=== PATIENT | female | born 1945 | race Caucasian/White ===

== ENCOUNTER → 2020-12-23 04:00 | Outpatient (REF) | payer MEDICARE, MEDICAID, SELFPAY ==
[2020-12-23 08:35] LABS: Hemoglobin A1c 7.5 % (3.8-5.6)
== END ==
LOC: OLS.SANC 04:00
PROVIDERS: Visit Provider Internal Medicine
DX: E11.9 Type 2 diabetes mellitus without complications (principal)
CPT/HCPCS: 36415; 83036

== ENCOUNTER → 2021-02-26 07:00 | Outpatient (REF) | payer MEDICARE, MEDICAID, SELFPAY ==
[2021-02-26 09:25] LABS: Hemoglobin A1c 7.5 % (3.8-5.6)
== END ==
LOC: OLS.SANC 07:00
PROVIDERS: Visit Provider Internal Medicine
DX: E11.9 Type 2 diabetes mellitus without complications (principal)
CPT/HCPCS: 36415; 83036

== ENCOUNTER → 2021-03-07 05:00 | Outpatient (REF) | payer MEDICARE, MEDICAID, SELFPAY ==
[2021-03-07 08:50] LABS: Hematocrit 31.9 % (37-47); Hemoglobin 10.6 g/dL (12.0-15.0); Mean Corp Hgb Conc 33.2 g/dL (32-36); Mean Corpuscular Hgb 29.4 pg (27.0-32.0); Mean Corpuscular Volume 88.6 fL (81-99); Mean Platelet Vol. 11.1 fl (6.2-12.0); Platelet Count 131 K/mm3 (150-450); RBC Distribution Width CV 14.9 % (11.6-14.6); RBC Distribution Width SD 48.1 fl (35.1-43.9); White Blood Count 6.3 K/mm3 (4.4-11.0)
[2021-03-07 09:03] LABS: Anion Gap 6 (5-15); BUN 15 mg/dL (7-18); BUN/Creat Ratio 12.7 RATIO (10-20); Calcium,Total 8.9 mg/dL (8.5-10.1); Chloride 107 mmol/L (98-107); Creatinine, Serum 1.18 mg/dL (0.55-1.02); EST Glomerular Filtration Rate 48 mL/min (>60); Est Glom Filt Rate - Afr Amer 57 mL/min (>60); Glucose 141 mg/dL (74-106); Potassium 3.5 mmol/L (3.5-5.1); Sodium Level 138 mmol/L (136-145)
== END ==
LOC: OLS.SANC 05:00
PROVIDERS: Visit Provider Internal Medicine
DX: E11.9 Type 2 diabetes mellitus without complications (principal); I10 Essential (primary) hypertension
CPT/HCPCS: 36415; 80048; 85027

== ENCOUNTER → 2021-04-04 05:00 | Outpatient (REF) | payer MEDICARE, MEDICAID, SELFPAY ==
[2021-04-04 08:41] LABS: Hematocrit 29.7 % (37-47); Hemoglobin 9.9 g/dL (12.0-15.0); Mean Corp Hgb Conc 33.3 g/dL (32-36); Mean Corpuscular Hgb 29.3 pg (27.0-32.0); Mean Corpuscular Volume 87.9 fL (81-99); Mean Platelet Vol. 11.4 fl (6.2-12.0); Platelet Count 143 K/mm3 (150-450); RBC Distribution Width CV 15.7 % (11.6-14.6); Red Blood Count 3.38 M/mm3 (4.2-5.4); White Blood Count 6.4 K/mm3 (4.4-11.0)
[2021-04-04 08:54] LABS: Anion Gap 5 (5-15); BUN 15 mg/dL (7-18); BUN/Creat Ratio 12.9 RATIO (10-20); Calcium,Total 8.5 mg/dL (8.5-10.1); Chloride 111 mmol/L (98-107); Creatinine, Serum 1.16 mg/dL (0.55-1.02); EST Glomerular Filtration Rate 48 mL/min (>60); Est Glom Filt Rate - Afr Amer 59 mL/min (>60); Glucose 106 mg/dL (74-106); Potassium 3.6 mmol/L (3.5-5.1); Sodium Level 142 mmol/L (136-145)
== END ==
LOC: OLS.SANC 05:00
PROVIDERS: Referring Provider Internal Medicine; Visit Provider Internal Medicine
DX: E11.9 Type 2 diabetes mellitus without complications (principal); E03.9 Hypothyroidism, unspecified
CPT/HCPCS: 36415; 80048; 85027

== ENCOUNTER → 2021-04-15 05:00 | Outpatient (REF) | payer MEDICARE, MEDICAID, SELFPAY ==
[2021-04-15 09:20] LABS: Hematocrit 36.8 % (37-47); Hemoglobin 11.7 g/dL (12.0-15.0); Mean Corp Hgb Conc 31.8 g/dL (32-36); Mean Corpuscular Hgb 28.8 pg (27.0-32.0); Mean Corpuscular Volume 90.6 fL (81-99); Mean Platelet Vol. 10.8 fl (6.2-12.0); Platelet Count 124 K/mm3 (150-450); RBC Distribution Width CV 15.8 % (11.6-14.6); RBC Distribution Width SD 51.5 fl (35.1-43.9); Red Blood Count 4.06 M/mm3 (4.2-5.4); White Blood Count 8.2 K/mm3 (4.4-11.0)
[2021-04-15 09:44] LABS: Anion Gap 7 (5-15); BUN 16 mg/dL (7-18); BUN/Creat Ratio 12.2 RATIO (10-20); Calcium,Total 9.1 mg/dL (8.5-10.1); Chloride 105 mmol/L (98-107); Creatinine, Serum 1.31 mg/dL (0.55-1.02); EST Glomerular Filtration Rate 42 mL/min (>60); Est Glom Filt Rate - Afr Amer 51 mL/min (>60); Glucose 164 mg/dL (74-106); Iron 79 ug/dL (50-170); Iron Binding Capacity,Total 249 ug/dL (250-450); Potassium 3.5 mmol/L (3.5-5.1); Sodium Level 138 mmol/L (136-145)
[2021-04-15 09:51] LABS: Vitamin B12 1611 pg/mL (211-911)
== END ==
LOC: OLS.SANC 05:00
PROVIDERS: Referring Provider Internal Medicine; Visit Provider Internal Medicine
DX: E78.5 Hyperlipidemia, unspecified (principal); E03.9 Hypothyroidism, unspecified
CPT/HCPCS: 36415; 80048; 82607; 82746; 83540; 83550; 85027

== ENCOUNTER → 2021-05-16 04:00 | Outpatient (REF) | payer MEDICARE, MEDICAID, SELFPAY ==
[2021-05-16 07:29] LABS: Hemoglobin 10.9 g/dL (12.0-15.0); Mean Corp Hgb Conc 32.1 g/dL (32-36); Mean Corpuscular Hgb 29.1 pg (27.0-32.0); Mean Corpuscular Volume 90.7 fL (81-99); Mean Platelet Vol. 10.5 fl (6.2-12.0); Platelet Count 115 K/mm3 (150-450); RBC Distribution Width CV 15.8 % (11.6-14.6); RBC Distribution Width SD 51.7 fl (35.1-43.9); Red Blood Count 3.75 M/mm3 (4.2-5.4); White Blood Count 7.5 K/mm3 (4.4-11.0)
[2021-05-16 07:41] LABS: Anion Gap 7 (5-15); BUN 20 mg/dL (7-18); BUN/Creat Ratio 15.4 RATIO (10-20); Calcium,Total 8.4 mg/dL (8.5-10.1); Chloride 106 mmol/L (98-107); EST Glomerular Filtration Rate 42 mL/min (>60); Est Glom Filt Rate - Afr Amer 51 mL/min (>60); Glucose 124 mg/dL (74-106); Potassium 3.9 mmol/L (3.5-5.1); Sodium Level 139 mmol/L (136-145)
== END ==
LOC: OLS.SANC 04:00
PROVIDERS: Visit Provider Family Medicine
DX: I10 Essential (primary) hypertension (principal); E11.9 Type 2 diabetes mellitus without complications
CPT/HCPCS: 36415; 80048; 85027

== ENCOUNTER → 2021-06-06 | Outpatient (REF) | payer MEDICARE, MEDICAID, SELFPAY ==
[2021-06-07 07:45] LABS: Mucous, Urine 0 SEEN /hpf (<or=2+)
[2021-06-07 08:21] LABS: Color, Urine Yellow (Yellow); Glucose, Dipstick 1000 mg/dl (Normal); Ketone-Dipstick 5 mg/dl (Negative); Leukocyte Esterase-Dipstick 500 /ul (Negative); Nitrite-Dipstick Positive (Negative); Occult Blood-Urine 50 /ul (Negative); Protein-Dipstick 15 mg/dl (Negative); Urine Bilirubin Dipstick Negative (Negative); Urine Clarity Sl. Cloudy (Clear); Urine Urobilinogen Normal (Normal)
[2021-06-07 08:28] LABS: Bacteria 2+ /hpf (None Seen); Calcium Oxalate Crystals Ur 1+ /hpf (<or=2+); Red Blood Cells-Urine 10-25 SEEN /hpf (0-5); Squamous Epithelial Cells - UA 0-5 SEEN /hpf (5-10); White Blood Cells >100 SEEN /hpf (0-5)
== END | disposition home or self-care (01) ==
LOC: OLS.SANC 19:00
PROVIDERS: Visit Provider Internal Medicine
DX: R41.82 Altered mental status, unspecified (principal)
CPT/HCPCS: 81001; 87086; 87088; 87186

== ENCOUNTER → 2021-06-20 | Outpatient (REF) | payer MEDICARE, MEDICAID, SELFPAY ==
[2021-06-20 08:42] LABS: Hematocrit 36.6 % (37-47); Mean Corp Hgb Conc 32.8 g/dL (32-36); Mean Corpuscular Hgb 29.5 pg (27.0-32.0); Mean Corpuscular Volume 89.9 fL (81-99); Mean Platelet Vol. 10.8 fl (6.2-12.0); Platelet Count 120 K/mm3 (150-450); RBC Distribution Width CV 15.4 % (11.6-14.6); RBC Distribution Width SD 50.4 fl (35.1-43.9); Red Blood Count 4.07 M/mm3 (4.2-5.4); White Blood Count 7.6 K/mm3 (4.4-11.0)
[2021-06-20 09:02] LABS: Anion Gap 7 (5-15); BUN 15 mg/dL (7-18); BUN/Creat Ratio 12.4 RATIO (10-20); Calcium,Total 8.9 mg/dL (8.5-10.1); Chloride 110 mmol/L (98-107); Creatinine, Serum 1.21 mg/dL (0.55-1.02); EST Glomerular Filtration Rate 46 mL/min (>60); Est Glom Filt Rate - Afr Amer 56 mL/min (>60); Glucose 74 mg/dL (74-106); Potassium 3.5 mmol/L (3.5-5.1); Sodium Level 142 mmol/L (136-145)
== END | disposition home or self-care (01) ==
LOC: OLS.SANC 05:00
PROVIDERS: Visit Provider Internal Medicine
DX: E11.9 Type 2 diabetes mellitus without complications (principal); N39.0 Urinary tract infection, site not specified
CPT/HCPCS: 36415; 80048; 85027

== ENCOUNTER → 2021-07-04 | Outpatient (REF) | payer MEDICAID, MEDICARE, SELFPAY ==
[2021-07-04 07:42] LABS: Hematocrit 35.9 % (37-47); Hemoglobin 11.7 g/dL (12.0-15.0); Mean Corp Hgb Conc 32.6 g/dL (32-36); Mean Corpuscular Hgb 28.9 pg (27.0-32.0); Mean Corpuscular Volume 88.6 fL (81-99); Mean Platelet Vol. 11.7 fl (6.2-12.0); Platelet Count 139 K/mm3 (150-450); RBC Distribution Width CV 15.7 % (11.6-14.6); Red Blood Count 4.05 M/mm3 (4.2-5.4); White Blood Count 7.4 K/mm3 (4.4-11.0)
[2021-07-04 07:50] LABS: Anion Gap 4 (5-15); BUN 15 mg/dL (7-18); BUN/Creat Ratio 13.5 RATIO (10-20); Chloride 110 mmol/L (98-107); Creatinine, Serum 1.11 mg/dL (0.55-1.02); EST Glomerular Filtration Rate 51 mL/min (>60); Est Glom Filt Rate - Afr Amer 62 mL/min (>60); Glucose 114 mg/dL (74-106); Sodium Level 140 mmol/L (136-145)
== END | disposition home or self-care (01) ==
LOC: OLS.SANC 06:10
PROVIDERS: Visit Provider Internal Medicine
DX: I10 Essential (primary) hypertension (principal); E11.9 Type 2 diabetes mellitus without complications; E78.5 Hyperlipidemia, unspecified
CPT/HCPCS: 36415; 80048; 85027

== ENCOUNTER → 2021-07-16 | Outpatient (REF) | payer MEDICARE, MEDICAID, SELFPAY ==
[2021-07-17 08:37] LABS: Color, Urine Yellow (Yellow); Glucose, Dipstick 100 mg/dl (Normal); Ketone-Dipstick Negative (Negative); Leukocyte Esterase-Dipstick 500 /ul (Negative); Nitrite-Dipstick Negative (Negative); Occult Blood-Urine 10 /ul (Negative); Protein-Dipstick 100 mg/dl (Negative); Urine Bilirubin Dipstick Negative (Negative); Urine Clarity Sl. Cloudy (Clear); Urine Urobilinogen Normal (Normal)
== END | disposition home or self-care (01) ==
LOC: OLS.SANC 21:00
PROVIDERS: Visit Provider Internal Medicine
DX: N39.0 Urinary tract infection, site not specified (principal); E11.9 Type 2 diabetes mellitus without complications
CPT/HCPCS: 81002; 87077; 87086; 87088; 87186

== ENCOUNTER → 2021-08-24 | Outpatient (REF) | payer MEDICARE, MEDICAID, SELFPAY ==
[2021-08-25 09:14] LABS: Mucous, Urine 0 SEEN /hpf (<or=2+); Red Blood Cells-Urine 0 SEEN /hpf (0-5)
[2021-08-25 10:25] LABS: Color, Urine Yellow (Yellow); Glucose, Dipstick 250 mg/dl (Normal); Ketone-Dipstick Negative (Negative); Leukocyte Esterase-Dipstick 500 /ul (Negative); Nitrite-Dipstick Negative (Negative); Occult Blood-Urine Negative /ul (Negative); Protein-Dipstick 100 mg/dl (Negative); Specific Gravity, Urine 1.015 (1.002-1.030); Urine Bilirubin Dipstick Negative (Negative); Urine Clarity Cloudy (Clear); Urine Urobilinogen Normal (Normal)
[2021-08-25 10:46] LABS: Bacteria 3+ /hpf (None Seen); Squamous Epithelial Cells - UA 0-5 SEEN /hpf (5-10); Triple Phosphate Crystals Ur 1+ /hpf (<or=1+); White Blood Cells 25-50 SEEN /hpf (0-5)
== END | disposition home or self-care (01) ==
LOC: OLS.SANC 09:13
PROVIDERS: Visit Provider Internal Medicine
DX: I10 Essential (primary) hypertension (principal); E11.9 Type 2 diabetes mellitus without complications; E78.5 Hyperlipidemia, unspecified
CPT/HCPCS: 81001; 87077; 87086; 87088; 87186

== ENCOUNTER → 2021-08-27 | Outpatient (REF) | payer MEDICARE, SELFPAY ==
[2021-08-27 08:08] LABS: Hemoglobin A1c 7.6 % (3.8-5.6)
== END | disposition home or self-care (01) ==
LOC: OLS.SANC 05:00
PROVIDERS: PCP Internal Medicine; Referring Provider Internal Medicine; Visit Provider Internal Medicine
DX: E11.9 Type 2 diabetes mellitus without complications (principal)
CPT/HCPCS: 36415; 83036

== ENCOUNTER → 2021-10-13 | Outpatient (REF) | payer MEDICARE, MEDICAID, SELFPAY ==
[2021-10-13 08:45] LABS: Hematocrit 30.3 % (37-47); Hemoglobin 9.8 g/dL (12.0-15.0); Mean Corp Hgb Conc 32.3 g/dL (32-36); Mean Corpuscular Hgb 28.5 pg (27.0-32.0); Mean Corpuscular Volume 88.1 fL (81-99); Mean Platelet Vol. 11.2 fl (6.2-12.0); Platelet Count 111 K/mm3 (150-450); RBC Distribution Width CV 14.9 % (11.6-14.6); RBC Distribution Width SD 47.2 fl (35.1-43.9); Red Blood Count 3.44 M/mm3 (4.2-5.4); White Blood Count 5.4 K/mm3 (4.4-11.0)
[2021-10-13 09:44] LABS: Anion Gap 8 (5-15); BUN 17 mg/dL (7-18); BUN/Creat Ratio 16.5 RATIO (10-20); Calcium,Total 8.7 mg/dL (8.5-10.1); Chloride 104 mmol/L (98-107); Creatinine, Serum 1.03 mg/dL (0.55-1.02); EST Glomerular Filtration Rate 55 mL/min (>60); Est Glom Filt Rate - Afr Amer 67 mL/min (>60); Glucose 229 mg/dL (74-106); Potassium 3.5 mmol/L (3.5-5.1); Sodium Level 137 mmol/L (136-145)
== END | disposition home or self-care (01) ==
LOC: OLS.SANC 05:00
PROVIDERS: PCP Internal Medicine; Visit Provider Internal Medicine
DX: I10 Essential (primary) hypertension (principal); E03.9 Hypothyroidism, unspecified
CPT/HCPCS: 36415; 80048; 85027

== ENCOUNTER → 2021-10-16 | Outpatient (REF) | payer MEDICARE, MEDICAID, SELFPAY ==
[2021-10-16 08:26] LABS: Hematocrit 30.9 % (37-47); Hemoglobin 10.3 g/dL (12.0-15.0); Mean Corp Hgb Conc 33.3 g/dL (32-36); Mean Corpuscular Hgb 29.5 pg (27.0-32.0); Mean Corpuscular Volume 88.5 fL (81-99); Mean Platelet Vol. 10.9 fl (6.2-12.0); Platelet Count 147 K/mm3 (150-450); RBC Distribution Width CV 15.1 % (11.6-14.6); RBC Distribution Width SD 48.4 fl (35.1-43.9); Red Blood Count 3.49 M/mm3 (4.2-5.4); White Blood Count 6.3 K/mm3 (4.4-11.0)
[2021-10-16 08:59] LABS: Anion Gap 8 (5-15); BUN 15 mg/dL (7-18); Calcium,Total 8.9 mg/dL (8.5-10.1); Chloride 104 mmol/L (98-107); EST Glomerular Filtration Rate 57 mL/min (>60); Est Glom Filt Rate - Afr Amer 70 mL/min (>60); Glucose 219 mg/dL (74-106); Potassium 3.8 mmol/L (3.5-5.1); Sodium Level 137 mmol/L (136-145)
== END | disposition home or self-care (01) ==
LOC: OLS.SANC 05:00
PROVIDERS: PCP Internal Medicine; Visit Provider Internal Medicine
DX: E11.9 Type 2 diabetes mellitus without complications (principal); T14.8XXD Other injury of unspecified body region, subsequent encounter
CPT/HCPCS: 36415; 80048; 85027

== ENCOUNTER → 2021-11-13 | Outpatient (REF) | payer MEDICARE, MEDICAID, SELFPAY ==
[2021-11-13 11:21] LABS: Hematocrit 33.9 % (37-47); Hemoglobin 10.9 g/dL (12.0-15.0); Mean Corp Hgb Conc 32.2 g/dL (32-36); Mean Corpuscular Hgb 28.6 pg (27.0-32.0); Mean Platelet Vol. 10.8 fl (6.2-12.0); Platelet Count 127 K/mm3 (150-450); RBC Distribution Width CV 15.4 % (11.6-14.6); RBC Distribution Width SD 50.1 fl (35.1-43.9); Red Blood Count 3.81 M/mm3 (4.2-5.4); White Blood Count 6.4 K/mm3 (4.4-11.0)
[2021-11-13 11:57] LABS: Anion Gap 5 (5-15); BUN 15 mg/dL (7-18); BUN/Creat Ratio 15.1 RATIO (10-20); Calcium,Total 8.8 mg/dL (8.5-10.1); Chloride 108 mmol/L (98-107); Creatinine, Serum 0.99 mg/dL (0.55-1.02); EST Glomerular Filtration Rate 58 mL/min (>60); Est Glom Filt Rate - Afr Amer 70 mL/min (>60); Glucose 136 mg/dL (74-106); Potassium 3.6 mmol/L (3.5-5.1); Sodium Level 139 mmol/L (136-145)
== END | disposition home or self-care (01) ==
LOC: OLS.SANC 05:00
PROVIDERS: PCP Internal Medicine; Visit Provider Internal Medicine
DX: I10 Essential (primary) hypertension (principal); E11.9 Type 2 diabetes mellitus without complications; E78.5 Hyperlipidemia, unspecified
CPT/HCPCS: 36415; 80048; 85027

== ENCOUNTER → 2022-01-06 | Outpatient (REF) | payer MEDICARE, MEDICAID, SELFPAY ==
[2022-01-06 09:17] LABS: Mucous, Urine 0 SEEN /hpf (<or=2+); Red Blood Cells-Urine 0 SEEN /hpf (0-5); Squamous Epithelial Cells - UA 0 SEEN /hpf (5-10)
[2022-01-06 10:12] LABS: Color, Urine Yellow (Yellow); Glucose, Dipstick Normal (Normal); Ketone-Dipstick 5 mg/dl (Negative); Leukocyte Esterase-Dipstick 500 /ul (Negative); Nitrite-Dipstick Positive (Negative); Occult Blood-Urine 150 /ul (Negative); Protein-Dipstick 30 mg/dl (Negative); Specific Gravity, Urine 1.025 (1.002-1.030); Urine Bilirubin Dipstick Negative (Negative); Urine Clarity Turbid (Clear); Urine Urobilinogen Normal (Normal)
[2022-01-06 10:20] LABS: Bacteria RARE /hpf (None Seen); White Blood Cells >100 SEEN /hpf (0-5); Yeast-Urine 4+ /hpf (None Seen)
== END ==
LOC: OLS.SANC 09:16
PROVIDERS: PCP Internal Medicine; Visit Provider Internal Medicine
DX: E11.9 Type 2 diabetes mellitus without complications (principal); I10 Essential (primary) hypertension; E78.5 Hyperlipidemia, unspecified; Z79.899 Other long term (current) drug therapy
CPT/HCPCS: 81001

== ENCOUNTER → 2022-01-14 | Outpatient (REF) | payer MEDICARE, MEDICAID, SELFPAY | LOC: OLS.SANC 05:00 | PROVIDERS: PCP Internal Medicine; Visit Provider Internal Medicine | DX: N39.0 Urinary tract infection, site not specified (principal) | CPT/HCPCS: 87077; 87086; 87088; 87186 ==

== ENCOUNTER → 2022-02-04 | Outpatient (REF) | payer OTHER, SELFPAY ==
[2022-02-04 09:21] LABS: Mucous, Urine 0 SEEN /hpf (<or=2+); Red Blood Cells-Urine 0 SEEN /hpf (0-5); Squamous Epithelial Cells - UA 0 SEEN /hpf (5-10)
[2022-02-04 09:31] LABS: Color, Urine Yellow (Yellow); Glucose, Dipstick 1000 mg/dl (Normal); Ketone-Dipstick 5 mg/dl (Negative); Leukocyte Esterase-Dipstick 500 /ul (Negative); Nitrite-Dipstick Negative (Negative); Occult Blood-Urine 150 /ul (Negative); Protein-Dipstick 100 mg/dl (Negative); Specific Gravity, Urine 1.025 (1.002-1.030); Urine Bilirubin Dipstick Negative (Negative); Urine Clarity Cloudy (Clear); Urine Urobilinogen Normal (Normal)
[2022-02-04 09:49] LABS: White Blood Cells >100 SEEN /hpf (0-5)
[2022-02-04 09:50] LABS: Bacteria 4+ /hpf (None Seen); Yeast-Urine 3+ /hpf (None Seen)
== END ==
LOC: OLS.SANC 04:00
PROVIDERS: PCP Internal Medicine; Visit Provider Internal Medicine
DX: N39.0 Urinary tract infection, site not specified (principal)
CPT/HCPCS: 81001; 87086; 87088

== ENCOUNTER → 2022-02-09 | Outpatient (REF) | payer MEDICARE, MEDICAID, SELFPAY ==
[2022-02-09 09:23] LABS: Color, Urine Red (Yellow); Glucose, Dipstick Normal (Normal); Ketone-Dipstick Negative (Negative); Leukocyte Esterase-Dipstick 500 /ul (Negative); Nitrite-Dipstick Positive (Negative); Occult Blood-Urine 50 /ul (Negative); Protein-Dipstick 30 mg/dl (Negative); Urine Clarity Turbid (Clear); Urine Urobilinogen 8 mg/dl (Normal)
[2022-02-09 09:26] LABS: Urine Bilirubin Dipstick 6 mg/dL (Negative)
== END ==
LOC: OLS.SANC 08:46
PROVIDERS: PCP Internal Medicine; Referring Provider Internal Medicine; Visit Provider Internal Medicine
DX: N39.0 Urinary tract infection, site not specified (principal); Z79.899 Other long term (current) drug therapy
CPT/HCPCS: 81002; 87086; 87088

== ENCOUNTER → 2022-02-12 | Outpatient (REF) | payer MEDICARE, MEDICAID, SELFPAY ==
[2022-02-12 10:09] LABS: Hematocrit 34.7 % (37-47); Hemoglobin 11.1 g/dL (12.0-15.0); Mean Corpuscular Hgb 28.4 pg (27.0-32.0); Mean Corpuscular Volume 88.7 fL (81-99); Mean Platelet Vol. 11.2 fl (6.2-12.0); Platelet Count 118 K/mm3 (150-450); RBC Distribution Width CV 15.5 % (11.6-14.6); RBC Distribution Width SD 49.6 fl (35.1-43.9); Red Blood Count 3.91 M/mm3 (4.2-5.4); White Blood Count 6.4 K/mm3 (4.4-11.0)
[2022-02-12 10:48] LABS: Anion Gap 7 (5-15); BUN 14 mg/dL (7-18); BUN/Creat Ratio 12.6 RATIO (10-20); Calcium,Total 8.7 mg/dL (8.5-10.1); Chloride 110 mmol/L (98-107); Creatinine, Serum 1.11 mg/dL (0.55-1.02); EST Glomerular Filtration Rate 51 mL/min (>60); Est Glom Filt Rate - Afr Amer 62 mL/min (>60); Glucose 119 mg/dL (74-106); Potassium 3.7 mmol/L (3.5-5.1); Sodium Level 141 mmol/L (136-145)
== END ==
LOC: OLS.SANC 05:00
PROVIDERS: PCP Internal Medicine; Visit Provider Internal Medicine
DX: E11.9 Type 2 diabetes mellitus without complications (principal); I10 Essential (primary) hypertension; E78.5 Hyperlipidemia, unspecified
CPT/HCPCS: 36415; 80048; 85027

== ENCOUNTER → 2022-02-25 | Outpatient (REF) | payer MEDICARE, MEDICAID, SELFPAY | LOC: OLS.SANC 05:00 | PROVIDERS: PCP Internal Medicine; Visit Provider Internal Medicine | DX: E11.9 Type 2 diabetes mellitus without complications (principal) | CPT/HCPCS: 36415; 83036 ==

== ENCOUNTER → 2022-02-28 | Outpatient (REF) | payer MEDICARE, MEDICAID, SELFPAY ==
[2022-03-02 08:22] LABS: Mucous, Urine 0 SEEN /hpf (<or=2+); Squamous Epithelial Cells - UA 0 SEEN /hpf (5-10)
[2022-03-02 09:14] LABS: Color, Urine Straw (Yellow); Glucose, Dipstick 1000 mg/dl (Normal); Ketone-Dipstick Negative (Negative); Leukocyte Esterase-Dipstick 500 /ul (Negative); Nitrite-Dipstick Negative (Negative); Occult Blood-Urine 50 /ul (Negative); Protein-Dipstick 15 mg/dl (Negative); Urine Bilirubin Dipstick Negative (Negative); Urine Clarity Cloudy (Clear); Urine Urobilinogen Normal (Normal)
[2022-03-02 09:35] LABS: Bacteria 3+ /hpf (None Seen); Red Blood Cells-Urine 0-5 SEEN /hpf (0-5); White Blood Cells 25-50 SEEN /hpf (0-5)
== END ==
LOC: OLS.SANC 08:20
PROVIDERS: PCP Internal Medicine; Visit Provider Internal Medicine
DX: R30.9 Painful micturition, unspecified (principal)
CPT/HCPCS: 81001; 87086; 87088

== ENCOUNTER → 2022-03-05 | Outpatient (REF) | payer MEDICARE, MEDICAID, SELFPAY ==
[2022-03-06 08:21] LABS: Mucous, Urine 0 SEEN /hpf (<or=2+); Squamous Epithelial Cells - UA 0 SEEN /hpf (5-10)
[2022-03-06 08:37] LABS: Color, Urine Yellow (Yellow); Glucose, Dipstick 250 mg/dl (Normal); Ketone-Dipstick 5 mg/dl (Negative); Leukocyte Esterase-Dipstick 500 /ul (Negative); Nitrite-Dipstick Negative (Negative); Occult Blood-Urine 150 /ul (Negative); Protein-Dipstick 30 mg/dl (Negative); Specific Gravity, Urine 1.025 (1.002-1.030); Urine Bilirubin Dipstick Negative (Negative); Urine Clarity Turbid (Clear); Urine Urobilinogen Normal (Normal)
[2022-03-06 08:45] LABS: Bacteria 2+ /hpf (None Seen); Red Blood Cells-Urine 10-25 SEEN /hpf (0-5); White Blood Cells 25-50 SEEN /hpf (0-5); Yeast-Urine 2+ /hpf (None Seen)
== END ==
LOC: OLS.SANC 20:30
PROVIDERS: PCP Internal Medicine; Visit Provider Internal Medicine
DX: I10 Essential (primary) hypertension (principal); E11.9 Type 2 diabetes mellitus without complications; E78.5 Hyperlipidemia, unspecified; R30.0 Dysuria
CPT/HCPCS: 81001; 87086; 87088

== ENCOUNTER → 2022-03-11 | Outpatient (REF) | payer MEDICARE, MEDICAID, SELFPAY ==
[2022-03-11 07:13] LABS: Mucous, Urine 0 SEEN /hpf (<or=2+); Squamous Epithelial Cells - UA 0 SEEN /hpf (5-10)
[2022-03-11 07:54] LABS: Color, Urine Yellow (Yellow); Glucose, Dipstick 1000 mg/dl (Normal); Ketone-Dipstick Negative (Negative); Leukocyte Esterase-Dipstick 500 /ul (Negative); Nitrite-Dipstick Negative (Negative); Occult Blood-Urine 150 /ul (Negative); Protein-Dipstick 30 mg/dl (Negative); Urine Bilirubin Dipstick Negative (Negative); Urine Clarity Cloudy (Clear); Urine Urobilinogen Normal (Normal)
[2022-03-11 08:18] LABS: Red Blood Cells-Urine 10-25 SEEN /hpf (0-5); White Blood Cells 25-50 SEEN /hpf (0-5)
[2022-03-11 08:19] LABS: Bacteria 1+ /hpf (None Seen); Yeast-Urine 2+ /hpf (None Seen)
== END ==
LOC: OLS.SANC 05:00
PROVIDERS: PCP Internal Medicine; Visit Provider Internal Medicine
DX: R30.9 Painful micturition, unspecified (principal)
CPT/HCPCS: 81001; 87086; 87088

== ENCOUNTER → 2022-05-01 | Outpatient (REF) | payer OTHER, SELFPAY ==
[2022-05-01 08:20] LABS: Thyroid Stim Hormone (TSH) 3.24 uIU/mL (0.358-3.74)
== END ==
LOC: OLS.SANC 05:00
PROVIDERS: PCP Internal Medicine; Visit Provider Internal Medicine
DX: E03.9 Hypothyroidism, unspecified (principal); Z79.899 Other long term (current) drug therapy
CPT/HCPCS: 36415; 84443

== ENCOUNTER → 2022-05-05 | Outpatient (REF) | payer MEDICARE, OTHER, MEDICAID, SELFPAY ==
[2022-05-05 10:15] LABS: Calcium,Total 8.2 mg/dL (8.5-10.1); Creatinine, Serum 0.91 mg/dL (0.55-1.02); EST Glomerular Filtration Rate 64 mL/min (>60); Est Glom Filt Rate - Afr Amer 77 mL/min (>60); Magnesium 1.8 mg/dL (1.6-2.6); Phosphorus 3.2 mg/dL (2.5-4.9)
== END ==
LOC: OLS.SANC 05:00
PROVIDERS: PCP Internal Medicine; Visit Provider Internal Medicine
DX: Z79.899 Other long term (current) drug therapy (principal)
CPT/HCPCS: 36415; 82310; 82565; 83735; 84100

== ENCOUNTER → 2022-06-08 | Outpatient (REF) | payer MEDICARE, OTHER, MEDICAID, SELFPAY ==
[2022-06-08 09:16] LABS: Color, Urine Yellow (Yellow); Glucose, Dipstick Normal (Normal); Ketone-Dipstick 5 mg/dl (Negative); Leukocyte Esterase-Dipstick 500 /ul (Negative); Mucous, Urine 0 SEEN /hpf (<or=2+); Nitrite-Dipstick Negative (Negative); Occult Blood-Urine 150 /ul (Negative); Protein-Dipstick 100 mg/dl (Negative); Specific Gravity, Urine 1.025 (1.002-1.030); Squamous Epithelial Cells - UA 0 SEEN /hpf (5-10); Urine Bilirubin Dipstick Negative (Negative); Urine Clarity Turbid (Clear); Urine Urobilinogen Normal (Normal)
[2022-06-08 09:30] LABS: Bacteria 2+ /hpf (None Seen); Red Blood Cells-Urine 10-25 SEEN /hpf (0-5); White Blood Cells 50-100 SEEN /hpf (0-5)
[2022-06-08 09:31] LABS: Yeast-Urine 1+ /hpf (None Seen)
== END ==
LOC: OLS.SANC 05:00
PROVIDERS: PCP Internal Medicine; Visit Provider Internal Medicine
DX: N39.0 Urinary tract infection, site not specified (principal)
CPT/HCPCS: 81001; 87077; 87086; 87088; 87186

== ENCOUNTER → 2022-06-12 | Outpatient (REF) | payer MEDICARE, OTHER, MEDICAID, SELFPAY ==
[2022-06-12 08:48] LABS: Mucous, Urine 0 SEEN /hpf (<or=2+); Squamous Epithelial Cells - UA 0 SEEN /hpf (5-10)
[2022-06-12 09:46] LABS: Color, Urine Yellow (Yellow); Glucose, Dipstick Normal (Normal); Ketone-Dipstick Negative (Negative); Leukocyte Esterase-Dipstick 500 /ul (Negative); Nitrite-Dipstick Positive (Negative); Occult Blood-Urine 150 /ul (Negative); Protein-Dipstick 100 mg/dl (Negative); Urine Bilirubin Dipstick Negative (Negative); Urine Clarity Cloudy (Clear); Urine Urobilinogen Normal (Normal)
[2022-06-12 10:00] LABS: Bacteria 2+ /hpf (None Seen); Red Blood Cells-Urine 10-25 SEEN /hpf (0-5); White Blood Cells 50-100 SEEN /hpf (0-5)
== END ==
LOC: OLS.SANC 05:00
PROVIDERS: PCP Internal Medicine; Visit Provider Internal Medicine
DX: N39.0 Urinary tract infection, site not specified (principal)
CPT/HCPCS: 81001; 87077; 87086; 87088; 87186

== ENCOUNTER → 2022-06-15 | Outpatient (REF) | payer MEDICARE, MEDICAID, SELFPAY ==
[2022-06-15 08:26] LABS: Hematocrit 37.8 % (37-47); Mean Corp Hgb Conc 31.7 g/dL (32-36); Mean Corpuscular Hgb 27.9 pg (27.0-32.0); Mean Corpuscular Volume 87.9 fL (81-99); Mean Platelet Vol. 11.4 fl (6.2-12.0); Platelet Count 153 K/mm3 (150-450); RBC Distribution Width CV 15.9 % (11.6-14.6); RBC Distribution Width SD 50.9 fl (35.1-43.9); White Blood Count 6.2 K/mm3 (4.4-11.0)
[2022-06-15 08:33] LABS: Anion Gap 6 (5-15); BUN 12 mg/dL (7-18); BUN/Creat Ratio 11.4 RATIO (10-20); Calcium,Total 8.9 mg/dL (8.5-10.1); Chloride 106 mmol/L (98-107); Creatinine, Serum 1.05 mg/dL (0.55-1.02); EST Glomerular Filtration Rate 54 mL/min (>60); Est Glom Filt Rate - Afr Amer 66 mL/min (>60); Glucose 110 mg/dL (74-106); Potassium 3.8 mmol/L (3.5-5.1); Sodium Level 140 mmol/L (136-145)
== END ==
LOC: OLS.SANC 05:00
PROVIDERS: PCP Internal Medicine; Visit Provider Internal Medicine
DX: E11.9 Type 2 diabetes mellitus without complications (principal); I10 Essential (primary) hypertension; E78.5 Hyperlipidemia, unspecified
CPT/HCPCS: 36415; 80048; 85027

== ENCOUNTER → 2022-06-29 | Outpatient (REF) | payer MEDICARE, OTHER, MEDICAID, SELFPAY ==
[2022-06-29 09:17] LABS: Hemoglobin A1c 8.1 % (3.8-5.6)
== END ==
LOC: OLS.SANC 05:00
PROVIDERS: PCP Internal Medicine; Visit Provider Internal Medicine
DX: E11.9 Type 2 diabetes mellitus without complications (principal); I10 Essential (primary) hypertension; E78.5 Hyperlipidemia, unspecified
CPT/HCPCS: 36415; 83036

== ENCOUNTER → 2022-07-03 | Outpatient (REF) | payer MEDICARE, MEDICAID, SELFPAY ==
[2022-07-03 07:27] LABS: Mucous, Urine 0 SEEN /hpf (<or=2+); Squamous Epithelial Cells - UA 0 SEEN /hpf (5-10)
[2022-07-03 07:54] LABS: Color, Urine Yellow (Yellow); Glucose, Dipstick 250 mg/dl (Normal); Ketone-Dipstick 5 mg/dl (Negative); Leukocyte Esterase-Dipstick 500 /ul (Negative); Nitrite-Dipstick Negative (Negative); Occult Blood-Urine 150 /ul (Negative); Protein-Dipstick 100 mg/dl (Negative); Specific Gravity, Urine 1.025 (1.002-1.030); Urine Bilirubin Dipstick Negative (Negative); Urine Clarity Turbid (Clear); Urine Urobilinogen Normal (Normal)
[2022-07-03 08:14] LABS: Bacteria 1+ /hpf (None Seen); Red Blood Cells-Urine 10-25 SEEN /hpf (0-5); White Blood Cells 25-50 SEEN /hpf (0-5); Yeast-Urine 1+ /hpf (None Seen)
== END ==
LOC: OLS.SANC 05:00
PROVIDERS: PCP Internal Medicine; Visit Provider Internal Medicine
DX: N39.0 Urinary tract infection, site not specified (principal)
CPT/HCPCS: 81001; 87086; 87088

== ENCOUNTER → 2022-07-06 | Outpatient (REF) | payer MEDICARE, OTHER, MEDICAID, SELFPAY ==
[2022-07-06 09:14] LABS: ALB/GLOB Ratio 0.8 RATIO (0.9-2.4); AST(SGOT) 12 U/L (15-37); Alanine Aminotransfer ALT/SGPT 17 U/L (13-56); Albumin, Serum 2.4 g/dL (3.2-5.0); Alkaline Phosphatase 113 U/L (45-117); Anion Gap 5 (5-15); BUN 16 mg/dL (7-18); BUN/Creat Ratio 17.6 RATIO (10-20); Calcium,Total 8.3 mg/dL (8.5-10.1); Chloride 109 mmol/L (98-107); Creatinine, Serum 0.91 mg/dL (0.55-1.02); EST Glomerular Filtration Rate 64 mL/min (>60); Est Glom Filt Rate - Afr Amer 77 mL/min (>60); Globulin 3.2 g/dL (2.2-4.2); Glucose 84 mg/dL (74-106); Potassium 3.4 mmol/L (3.5-5.1); Protein, Total 5.6 g/dL (6.4-8.2); Sodium Level 141 mmol/L (136-145)
[2022-07-07 09:55] LABS: Hematocrit 33.7 % (37-47); Hemoglobin 10.7 g/dL (12.0-15.0); Mean Corp Hgb Conc 31.8 g/dL (32-36); Mean Corpuscular Hgb 28.3 pg (27.0-32.0); Mean Corpuscular Volume 89.2 fL (81-99); Mean Platelet Vol. 10.3 fl (6.2-12.0); Platelet Count 131 K/mm3 (150-450); RBC Distribution Width CV 15.9 % (11.6-14.6); RBC Distribution Width SD 51.5 fl (35.1-43.9); Red Blood Count 3.78 M/mm3 (4.2-5.4); White Blood Count 6.9 K/mm3 (4.4-11.0)
== END ==
LOC: OLS.SANC 05:00
PROVIDERS: PCP Internal Medicine; Visit Provider Internal Medicine
DX: E11.9 Type 2 diabetes mellitus without complications (principal); I10 Essential (primary) hypertension
CPT/HCPCS: 36415; 80053; 85027

== ENCOUNTER → 2022-07-10 | Outpatient (REF) | payer MEDICARE, OTHER, MEDICAID, SELFPAY ==
[2022-07-10 08:54] LABS: Mucous, Urine 0 SEEN /hpf (<or=2+)
[2022-07-10 09:11] LABS: Color, Urine Yellow (Yellow); Glucose, Dipstick 250 mg/dl (Normal); Ketone-Dipstick 5 mg/dl (Negative); Leukocyte Esterase-Dipstick 500 /ul (Negative); Nitrite-Dipstick Negative (Negative); Occult Blood-Urine 150 /ul (Negative); Protein-Dipstick 100 mg/dl (Negative); Specific Gravity, Urine 1.025 (1.002-1.030); Urine Bilirubin Dipstick Negative (Negative); Urine Clarity Turbid (Clear); Urine Urobilinogen Normal (Normal)
[2022-07-10 09:24] LABS: Bacteria 1+ /hpf (None Seen); Red Blood Cells-Urine 10-25 SEEN /hpf (0-5); Squamous Epithelial Cells - UA 0-5 SEEN /hpf (5-10); White Blood Cells 25-50 SEEN /hpf (0-5)
== END ==
LOC: OLS.SANC 05:00
PROVIDERS: PCP Internal Medicine; Visit Provider Internal Medicine
DX: R39.9 Unspecified symptoms and signs involving the genitourinary system (principal); E11.9 Type 2 diabetes mellitus without complications; I10 Essential (primary) hypertension
CPT/HCPCS: 81001; 87086; 87088

== ENCOUNTER → 2022-07-13 | Outpatient (REF) | payer MEDICARE, MEDICAID, SELFPAY ==
[2022-07-13 08:48] LABS: Hemoglobin 11.6 g/dL (12.0-15.0); Mean Corp Hgb Conc 32.2 g/dL (32-36); Mean Corpuscular Hgb 28.6 pg (27.0-32.0); Mean Corpuscular Volume 88.9 fL (81-99); Mean Platelet Vol. 10.8 fl (6.2-12.0); Platelet Count 149 K/mm3 (150-450); RBC Distribution Width CV 15.9 % (11.6-14.6); RBC Distribution Width SD 51.4 fl (35.1-43.9); Red Blood Count 4.05 M/mm3 (4.2-5.4); White Blood Count 7.4 K/mm3 (4.4-11.0)
[2022-07-13 09:05] LABS: Anion Gap 7 (5-15); BUN 13 mg/dL (7-18); BUN/Creat Ratio 13.8 RATIO (10-20); Calcium,Total 9.1 mg/dL (8.5-10.1); Chloride 107 mmol/L (98-107); Creatinine, Serum 0.94 mg/dL (0.55-1.02); EST Glomerular Filtration Rate 61 mL/min (>60); Est Glom Filt Rate - Afr Amer 74 mL/min (>60); Glucose 114 mg/dL (74-106); Potassium 3.2 mmol/L (3.5-5.1); Sodium Level 141 mmol/L (136-145)
== END ==
LOC: OLS.SANC 04:00
PROVIDERS: PCP Internal Medicine; Referring Provider Internal Medicine; Visit Provider Internal Medicine
DX: E11.9 Type 2 diabetes mellitus without complications (principal); I10 Essential (primary) hypertension; E78.5 Hyperlipidemia, unspecified
CPT/HCPCS: 36415; 80048; 85027

== ENCOUNTER → 2022-07-15 | Outpatient (REF) | payer MEDICARE, OTHER, MEDICAID, SELFPAY ==
[2022-07-15 08:18] LABS: Mucous, Urine 0 SEEN /hpf (<or=2+)
[2022-07-15 09:01] LABS: Color, Urine Yellow (Yellow); Glucose, Dipstick 250 mg/dl (Normal); Ketone-Dipstick Negative (Negative); Leukocyte Esterase-Dipstick 500 /ul (Negative); Nitrite-Dipstick Positive (Negative); Occult Blood-Urine 50 /ul (Negative); Protein-Dipstick 30 mg/dl (Negative); Urine Bilirubin Dipstick Negative (Negative); Urine Clarity Cloudy (Clear); Urine Urobilinogen Normal (Normal)
[2022-07-15 09:16] LABS: White Blood Cells >100 SEEN /hpf (0-5)
[2022-07-15 09:20] LABS: Bacteria 3+ /hpf (None Seen); Red Blood Cells-Urine 0-5 SEEN /hpf (0-5); Squamous Epithelial Cells - UA 0-5 SEEN /hpf (5-10)
== END ==
LOC: OLS.SANC 06:22
PROVIDERS: PCP Internal Medicine; Visit Provider Internal Medicine
DX: R39.11 Hesitancy of micturition (principal); R35.0 Frequency of micturition; R39.16 Straining to void
CPT/HCPCS: 81001; 87077; 87086; 87088; 87186

== ENCOUNTER → 2022-07-16 | Outpatient (REF) | payer MEDICARE, OTHER, MEDICAID, SELFPAY ==
[2022-07-16 08:39] LABS: Anion Gap 8 (5-15); BUN 16 mg/dL (7-18); BUN/Creat Ratio 18.3 RATIO (10-20); Calcium,Total 8.6 mg/dL (8.5-10.1); Chloride 108 mmol/L (98-107); Creatinine, Serum 0.87 mg/dL (0.55-1.02); EST Glomerular Filtration Rate 67 mL/min (>60); Est Glom Filt Rate - Afr Amer 81 mL/min (>60); Glucose 181 mg/dL (74-106); Potassium 3.6 mmol/L (3.5-5.1); Sodium Level 140 mmol/L (136-145)
== END ==
LOC: OLS.SANC 05:00
PROVIDERS: PCP Internal Medicine; Visit Provider Internal Medicine
DX: E11.9 Type 2 diabetes mellitus without complications (principal); I10 Essential (primary) hypertension; E78.5 Hyperlipidemia, unspecified
CPT/HCPCS: 36415; 80048

== ENCOUNTER → 2022-08-11 | Outpatient (REF) | payer MEDICARE, OTHER, MEDICAID, SELFPAY ==
[2022-08-11 08:58] LABS: Color, Urine Yellow (Yellow); Glucose, Dipstick 1000 mg/dl (Normal); Ketone-Dipstick Negative (Negative); Leukocyte Esterase-Dipstick 500 /ul (Negative); Nitrite-Dipstick Negative (Negative); Occult Blood-Urine 150 /ul (Negative); Protein-Dipstick 100 mg/dl (Negative); Specific Gravity, Urine 1.025 (1.002-1.030); Urine Bilirubin Dipstick Negative (Negative); Urine Clarity Turbid (Clear); Urine Urobilinogen 1 mg/dl (Normal)
== END ==
LOC: OLS.SANC 04:50
PROVIDERS: PCP Internal Medicine; Visit Provider Internal Medicine
DX: R39.9 Unspecified symptoms and signs involving the genitourinary system (principal)
CPT/HCPCS: 81002; 87086

== ENCOUNTER → 2022-08-13 | Outpatient (REF) | payer MEDICARE, OTHER, MEDICAID, SELFPAY ==
[2022-08-13 08:22] LABS: Hematocrit 34.7 % (37-47); Hemoglobin 11.2 g/dL (12.0-15.0); Mean Corp Hgb Conc 32.3 g/dL (32-36); Mean Corpuscular Hgb 28.6 pg (27.0-32.0); Mean Corpuscular Volume 88.5 fL (81-99); Mean Platelet Vol. 10.5 fl (6.2-12.0); Platelet Count 156 K/mm3 (150-450); RBC Distribution Width CV 15.9 % (11.6-14.6); RBC Distribution Width SD 51.3 fl (35.1-43.9); Red Blood Count 3.92 M/mm3 (4.2-5.4); White Blood Count 7.3 K/mm3 (4.4-11.0)
[2022-08-13 08:32] LABS: Anion Gap 4 (5-15); BUN 12 mg/dL (7-18); BUN/Creat Ratio 12.3 RATIO (10-20); Calcium,Total 8.7 mg/dL (8.5-10.1); Chloride 110 mmol/L (98-107); Creatinine, Serum 0.98 mg/dL (0.55-1.02); EST Glomerular Filtration Rate 59 mL/min (>60); Est Glom Filt Rate - Afr Amer 71 mL/min (>60); Glucose 123 mg/dL (74-106); Potassium 3.8 mmol/L (3.5-5.1); Sodium Level 141 mmol/L (136-145)
== END ==
LOC: OLS.SANC 05:00
PROVIDERS: PCP Internal Medicine; Visit Provider Internal Medicine
DX: E11.9 Type 2 diabetes mellitus without complications (principal); I10 Essential (primary) hypertension; E78.5 Hyperlipidemia, unspecified
CPT/HCPCS: 36415; 80048; 85027

== ENCOUNTER → 2022-08-28 | Outpatient (REF) | payer MEDICARE, OTHER, MEDICAID, SELFPAY ==
[2022-08-28 07:37] LABS: Hemoglobin 11.4 g/dL (12.0-15.0); Mean Corp Hgb Conc 32.6 g/dL (32-36); Mean Corpuscular Hgb 28.9 pg (27.0-32.0); Mean Corpuscular Volume 88.8 fL (81-99); Mean Platelet Vol. 10.5 fl (6.2-12.0); Platelet Count 142 K/mm3 (150-450); RBC Distribution Width CV 15.9 % (11.6-14.6); RBC Distribution Width SD 51.8 fl (35.1-43.9); Red Blood Count 3.94 M/mm3 (4.2-5.4); White Blood Count 7.1 K/mm3 (4.4-11.0)
[2022-08-28 07:42] LABS: Anion Gap 3 (5-15); BUN 14 mg/dL (7-18); BUN/Creat Ratio 16.3 RATIO (10-20); Calcium,Total 8.6 mg/dL (8.5-10.1); Chloride 112 mmol/L (98-107); Creatinine, Serum 0.86 mg/dL (0.55-1.02); EST Glomerular Filtration Rate 68 mL/min (>60); Est Glom Filt Rate - Afr Amer 82 mL/min (>60); Glucose 94 mg/dL (74-106); Potassium 3.4 mmol/L (3.5-5.1); Sodium Level 140 mmol/L (136-145)
== END ==
LOC: OLS.SANC 05:00
PROVIDERS: PCP Internal Medicine; Visit Provider Internal Medicine
DX: E11.9 Type 2 diabetes mellitus without complications (principal); I10 Essential (primary) hypertension; E78.5 Hyperlipidemia, unspecified
CPT/HCPCS: 36415; 80048; 85027

== ENCOUNTER → 2022-09-02 | Outpatient (REF) | payer MEDICARE, OTHER, MEDICAID, SELFPAY ==
[2022-09-02 08:07] LABS: Anion Gap 4 (5-15); BUN 14 mg/dL (7-18); BUN/Creat Ratio 15.3 RATIO (10-20); Calcium,Total 8.4 mg/dL (8.5-10.1); Chloride 110 mmol/L (98-107); Creatinine, Serum 0.91 mg/dL (0.55-1.02); EST Glomerular Filtration Rate 64 mL/min (>60); Est Glom Filt Rate - Afr Amer 77 mL/min (>60); Glucose 110 mg/dL (74-106); Potassium 3.7 mmol/L (3.5-5.1); Sodium Level 142 mmol/L (136-145)
== END ==
LOC: OLS.SANC 05:00
PROVIDERS: PCP Internal Medicine; Visit Provider Internal Medicine
DX: E11.9 Type 2 diabetes mellitus without complications (principal); E78.5 Hyperlipidemia, unspecified; I10 Essential (primary) hypertension
CPT/HCPCS: 36415; 80048

== ENCOUNTER → 2022-09-14 | Outpatient (REF) | payer MEDICARE, OTHER, MEDICAID, SELFPAY ==
[2022-09-14 09:01] LABS: Hematocrit 33.2 % (37-47); Hemoglobin 10.6 g/dL (12.0-15.0); Mean Corp Hgb Conc 31.9 g/dL (32-36); Mean Corpuscular Hgb 28.7 pg (27.0-32.0); Mean Platelet Vol. 11.4 fl (6.2-12.0); Platelet Count 127 K/mm3 (150-450); RBC Distribution Width CV 16.1 % (11.6-14.6); RBC Distribution Width SD 52.8 fl (35.1-43.9); Red Blood Count 3.69 M/mm3 (4.2-5.4); White Blood Count 7.8 K/mm3 (4.4-11.0)
[2022-09-14 09:11] LABS: Anion Gap 9 (5-15); BUN 13 mg/dL (7-18); BUN/Creat Ratio 13.6 RATIO (10-20); Calcium,Total 8.4 mg/dL (8.5-10.1); Chloride 108 mmol/L (98-107); Creatinine, Serum 0.96 mg/dL (0.55-1.02); EST Glomerular Filtration Rate 60 mL/min (>60); Est Glom Filt Rate - Afr Amer 73 mL/min (>60); Glucose 136 mg/dL (74-106); Potassium 3.4 mmol/L (3.5-5.1); Sodium Level 143 mmol/L (136-145)
[2022-09-14 09:17] LABS: Vitamin D,25 Hydroxy 43.1 ng/mL
== END ==
LOC: OLS.SANC 04:00
PROVIDERS: PCP Internal Medicine; Referring Provider Internal Medicine; Visit Provider Internal Medicine
DX: E11.9 Type 2 diabetes mellitus without complications (principal); E78.5 Hyperlipidemia, unspecified; E55.9 Vitamin D deficiency, unspecified; I10 Essential (primary) hypertension
CPT/HCPCS: 36415; 80048; 82306; 85027

== ENCOUNTER → 2022-09-23 | Outpatient (REF) | payer MEDICARE, OTHER, MEDICAID, SELFPAY ==
[2022-09-23 09:21] LABS: Anion Gap 6 (5-15); BUN 14 mg/dL (7-18); Calcium,Total 8.7 mg/dL (8.5-10.1); Chloride 110 mmol/L (98-107); Creatinine, Serum 0.78 mg/dL (0.55-1.02); EST Glomerular Filtration Rate 76 mL/min (>60); Est Glom Filt Rate - Afr Amer 93 mL/min (>60); Glucose 104 mg/dL (74-106); Potassium 3.3 mmol/L (3.5-5.1); Sodium Level 142 mmol/L (136-145)
== END ==
LOC: OLS.SANC 05:00
PROVIDERS: PCP Internal Medicine; Visit Provider Internal Medicine
DX: E11.9 Type 2 diabetes mellitus without complications (principal); I10 Essential (primary) hypertension; E78.5 Hyperlipidemia, unspecified
CPT/HCPCS: 36415; 80048

== ENCOUNTER → 2022-09-25 | Outpatient (REF) | payer MEDICARE, OTHER, MEDICAID, SELFPAY ==
[2022-09-25 07:56] LABS: Anion Gap 6 (5-15); BUN 13 mg/dL (7-18); BUN/Creat Ratio 14.5 RATIO (10-20); Calcium,Total 8.5 mg/dL (8.5-10.1); Chloride 109 mmol/L (98-107); EST Glomerular Filtration Rate 65 mL/min (>60); Est Glom Filt Rate - Afr Amer 79 mL/min (>60); Glucose 118 mg/dL (74-106); Potassium 3.5 mmol/L (3.5-5.1); Sodium Level 141 mmol/L (136-145)
== END ==
LOC: OLS.SANC 05:00
PROVIDERS: PCP Internal Medicine; Visit Provider Internal Medicine
DX: E11.9 Type 2 diabetes mellitus without complications (principal); I10 Essential (primary) hypertension; E78.5 Hyperlipidemia, unspecified
CPT/HCPCS: 36415; 80048

== ENCOUNTER → 2022-10-02 | Outpatient (REF) | payer MEDICARE, OTHER, MEDICAID, SELFPAY ==
[2022-10-02 08:40] LABS: Vitamin D,25 Hydroxy 37.8 ng/mL
== END ==
LOC: OLS.SANC 05:00
PROVIDERS: PCP Internal Medicine; Visit Provider Internal Medicine
DX: E55.9 Vitamin D deficiency, unspecified (principal)
CPT/HCPCS: 36415; 82306

== ENCOUNTER → 2022-10-19 | Outpatient (REF) | payer MEDICARE, MEDICAID, SELFPAY ==
[2022-10-19 12:01] LABS: Hemoglobin A1c 7.8 % (3.8-5.6)
== END ==
LOC: OLS.SANC 05:00
PROVIDERS: PCP Internal Medicine; Visit Provider Internal Medicine
DX: E11.9 Type 2 diabetes mellitus without complications (principal); I10 Essential (primary) hypertension; E78.5 Hyperlipidemia, unspecified
CPT/HCPCS: 36415; 83036

== ENCOUNTER → 2022-10-30 | Outpatient (REF) | payer MEDICARE, OTHER, MEDICAID, SELFPAY ==
[2022-10-30 09:15] LABS: Thyroid Stim Hormone (TSH) 2.76 uIU/mL (0.358-3.74)
== END ==
LOC: OLS.SANC 05:00
PROVIDERS: PCP Internal Medicine; Visit Provider Internal Medicine
DX: E11.9 Type 2 diabetes mellitus without complications (principal); E78.5 Hyperlipidemia, unspecified
CPT/HCPCS: 36415; 84443

== ENCOUNTER → 2022-11-02 | Outpatient (REF) | payer MEDICARE, MEDICAID, SELFPAY ==
[2022-11-02 08:50] LABS: Mucous, Urine 0 SEEN /hpf (<or=2+); Red Blood Cells-Urine 0 SEEN /hpf (0-5); Squamous Epithelial Cells - UA 0 SEEN /hpf (5-10)
[2022-11-02 09:15] LABS: Calcium,Total 7.4 mg/dL (8.5-10.1); Creatinine, Serum 0.94 mg/dL (0.55-1.02); EST Glomerular Filtration Rate 62 mL/min (>60); Est Glom Filt Rate - Afr Amer 75 mL/min (>60); Magnesium 1.8 mg/dL (1.6-2.6); Phosphorus 1.8 mg/dL (2.5-4.9)
[2022-11-02 09:22] LABS: Color, Urine Yellow (Yellow); Glucose, Dipstick 1000 mg/dl (Normal); Ketone-Dipstick 5 mg/dl (Negative); Leukocyte Esterase-Dipstick 500 /ul (Negative); Nitrite-Dipstick Negative (Negative); Occult Blood-Urine 50 /ul (Negative); Protein-Dipstick 30 mg/dl (Negative); Urine Bilirubin Dipstick Negative (Negative); Urine Clarity Sl. Cloudy (Clear); Urine Urobilinogen Normal (Normal)
[2022-11-02 09:23] LABS: Vitamin D,25 Hydroxy 62.6 ng/mL
[2022-11-02 09:45] LABS: Bacteria 3+ /hpf (None Seen); White Blood Cells >100 SEEN /hpf (0-5)
== END ==
LOC: OLS.SANC 05:00
PROVIDERS: PCP Internal Medicine; Visit Provider Internal Medicine
DX: E11.9 Type 2 diabetes mellitus without complications (principal); E55.9 Vitamin D deficiency, unspecified; I10 Essential (primary) hypertension; E78.5 Hyperlipidemia, unspecified; Z79.899 Other long term (current) drug therapy
CPT/HCPCS: 36415; 81001; 82306; 82310; 82565; 83735; 84100; 87086; 87088

== ENCOUNTER → 2022-11-09 | Outpatient (REF) | payer MEDICARE, MEDICAID, SELFPAY ==
[2022-11-09 07:31] LABS: Bacteria 0 SEEN /hpf (None Seen); Mucous, Urine 0 SEEN /hpf (<or=2+); Red Blood Cells-Urine 0 SEEN /hpf (0-5); Squamous Epithelial Cells - UA 0 SEEN /hpf (5-10)
[2022-11-09 08:03] LABS: Color, Urine Yellow (Yellow); Glucose, Dipstick Normal (Normal); Ketone-Dipstick Negative (Negative); Leukocyte Esterase-Dipstick 500 /ul (Negative); Nitrite-Dipstick Negative (Negative); Occult Blood-Urine 150 /ul (Negative); Protein-Dipstick 100 mg/dl (Negative); Specific Gravity, Urine 1.015 (1.002-1.030); Urine Bilirubin Dipstick Negative (Negative); Urine Clarity Cloudy (Clear); Urine Urobilinogen Normal (Normal)
[2022-11-09 08:09] LABS: White Blood Cells 0 SEEN /hpf (0-5)
[2022-11-09 08:10] LABS: Hematocrit 36.9 % (37-47); Mean Corp Hgb Conc 32.5 g/dL (32-36); Mean Corpuscular Hgb 28.9 pg (27.0-32.0); Mean Corpuscular Volume 88.9 fL (81-99); Mean Platelet Vol. 11.6 fl (6.2-12.0); Platelet Count 136 K/mm3 (150-450); RBC Distribution Width CV 16.8 % (11.6-14.6); RBC Distribution Width SD 54.4 fl (35.1-43.9); Red Blood Count 4.15 M/mm3 (4.2-5.4); White Blood Count 11.8 K/mm3 (4.4-11.0)
[2022-11-09 08:25] LABS: Anion Gap 7 (5-15); BUN 12 mg/dL (7-18); BUN/Creat Ratio 15.3 RATIO (10-20); Calcium,Total 7.5 mg/dL (8.5-10.1); Chloride 113 mmol/L (98-107); Creatinine, Serum 0.78 mg/dL (0.55-1.02); EST Glomerular Filtration Rate 76 mL/min (>60); Est Glom Filt Rate - Afr Amer 92 mL/min (>60); Glucose 58 mg/dL (74-106); Potassium 2.9 mmol/L (3.5-5.1); Sodium Level 142 mmol/L (136-145)
== END ==
LOC: OLS.SANC 05:00
PROVIDERS: PCP Internal Medicine
DX: R39.9 Unspecified symptoms and signs involving the genitourinary system (principal); E11.9 Type 2 diabetes mellitus without complications; I10 Essential (primary) hypertension
CPT/HCPCS: 36415; 80048; 81001; 85027; 87077; 87086; 87088

== ENCOUNTER → 2022-11-11 | Outpatient (REF) | payer MEDICARE, MEDICAID, SELFPAY ==
[2022-11-11 09:27] LABS: Hemoglobin 10.9 g/dL (12.0-15.0); Mean Corpuscular Hgb 29.4 pg (27.0-32.0); Mean Corpuscular Volume 88.9 fL (81-99); Mean Platelet Vol. 11.6 fl (6.2-12.0); Platelet Count 117 K/mm3 (150-450); RBC Distribution Width CV 16.7 % (11.6-14.6); RBC Distribution Width SD 53.7 fl (35.1-43.9); Red Blood Count 3.71 M/mm3 (4.2-5.4); White Blood Count 8.6 K/mm3 (4.4-11.0)
[2022-11-11 09:46] LABS: Anion Gap 3 (5-15); BUN 10 mg/dL (7-18); BUN/Creat Ratio 11.5 RATIO (10-20); Calcium,Total 7.7 mg/dL (8.5-10.1); Chloride 111 mmol/L (98-107); Creatinine, Serum 0.87 mg/dL (0.55-1.02); EST Glomerular Filtration Rate 68 mL/min (>60); Est Glom Filt Rate - Afr Amer 82 mL/min (>60); Glucose 137 mg/dL (74-106); Potassium 3.1 mmol/L (3.5-5.1); Sodium Level 140 mmol/L (136-145)
== END ==
LOC: OLS.SANC 05:00
PROVIDERS: PCP Internal Medicine; Visit Provider Internal Medicine
DX: E11.9 Type 2 diabetes mellitus without complications (principal); I10 Essential (primary) hypertension; E78.5 Hyperlipidemia, unspecified
CPT/HCPCS: 36415; 80048; 85027

== ENCOUNTER → 2022-11-19 | Outpatient (REF) | payer MEDICARE, MEDICAID, SELFPAY ==
[2022-11-19 10:01] LABS: Hematocrit 34.9 % (37-47); Hemoglobin 10.9 g/dL (12.0-15.0); Mean Corp Hgb Conc 31.2 g/dL (32-36); Mean Corpuscular Hgb 28.2 pg (27.0-32.0); Mean Corpuscular Volume 90.2 fL (81-99); Platelet Count 155 K/mm3 (150-450); RBC Distribution Width CV 16.5 % (11.6-14.6); RBC Distribution Width SD 53.4 fl (35.1-43.9); Red Blood Count 3.87 M/mm3 (4.2-5.4); White Blood Count 6.4 K/mm3 (4.4-11.0)
[2022-11-19 10:14] LABS: Anion Gap 4 (5-15); BUN 10 mg/dL (7-18); BUN/Creat Ratio 11.4 RATIO (10-20); Calcium,Total 7.9 mg/dL (8.5-10.1); Chloride 111 mmol/L (98-107); Creatinine, Serum 0.88 mg/dL (0.55-1.02); EST Glomerular Filtration Rate 66 mL/min (>60); Est Glom Filt Rate - Afr Amer 80 mL/min (>60); Glucose 149 mg/dL (74-106); Potassium 3.7 mmol/L (3.5-5.1); Sodium Level 142 mmol/L (136-145)
== END ==
LOC: OLS.SANC 05:00
PROVIDERS: PCP Internal Medicine; Visit Provider Internal Medicine
DX: I10 Essential (primary) hypertension (principal); E11.9 Type 2 diabetes mellitus without complications; F03.90 Unspecified dementia, unspecified severity, without behavioral disturbance, psychotic disturbance, mood disturbance, and anxiety
CPT/HCPCS: 36415; 80048; 85027

== ENCOUNTER → 2022-12-03 | Outpatient (REF) | payer MEDICARE, MEDICAID, SELFPAY ==
[2022-12-03 09:54] LABS: Hematocrit 33.3 % (37-47); Hemoglobin 10.9 g/dL (12.0-15.0); Mean Corp Hgb Conc 32.7 g/dL (32-36); Mean Corpuscular Hgb 28.6 pg (27.0-32.0); Mean Corpuscular Volume 87.4 fL (81-99); Mean Platelet Vol. 11.3 fl (6.2-12.0); Platelet Count 132 K/mm3 (150-450); RBC Distribution Width CV 16.5 % (11.6-14.6); RBC Distribution Width SD 52.5 fl (35.1-43.9); Red Blood Count 3.81 M/mm3 (4.2-5.4)
[2022-12-03 10:06] LABS: Anion Gap 8 (5-15); BUN 10 mg/dL (7-18); BUN/Creat Ratio 13.7 RATIO (10-20); Calcium,Total 7.6 mg/dL (8.5-10.1); Chloride 111 mmol/L (98-107); Creatinine, Serum 0.73 mg/dL (0.55-1.02); EST Glomerular Filtration Rate 82 mL/min (>60); Est Glom Filt Rate - Afr Amer 99 mL/min (>60); Glucose 55 mg/dL (74-106); Potassium 3.2 mmol/L (3.5-5.1); Sodium Level 143 mmol/L (136-145)
== END ==
LOC: OLS.SANC 05:00
PROVIDERS: PCP Internal Medicine; Visit Provider Internal Medicine
DX: E11.9 Type 2 diabetes mellitus without complications (principal); E78.5 Hyperlipidemia, unspecified
CPT/HCPCS: 36415; 80048; 85027

== ENCOUNTER → 2022-12-10 | Outpatient (REF) | payer MEDICARE, MEDICAID, SELFPAY ==
[2022-12-10 09:35] LABS: Hematocrit 31.5 % (37-47); Hemoglobin 10.2 g/dL (12.0-15.0); Mean Corp Hgb Conc 32.4 g/dL (32-36); Mean Corpuscular Hgb 28.7 pg (27.0-32.0); Mean Corpuscular Volume 88.7 fL (81-99); Mean Platelet Vol. 11.2 fl (6.2-12.0); Platelet Count 134 K/mm3 (150-450); RBC Distribution Width CV 16.6 % (11.6-14.6); RBC Distribution Width SD 53.4 fl (35.1-43.9); Red Blood Count 3.55 M/mm3 (4.2-5.4); White Blood Count 7.8 K/mm3 (4.4-11.0)
[2022-12-10 09:49] LABS: Anion Gap 4 (5-15); BUN 15 mg/dL (7-18); BUN/Creat Ratio 18.1 RATIO (10-20); Calcium,Total 7.7 mg/dL (8.5-10.1); Chloride 111 mmol/L (98-107); Creatinine, Serum 0.83 mg/dL (0.55-1.02); EST Glomerular Filtration Rate 71 mL/min (>60); Est Glom Filt Rate - Afr Amer 86 mL/min (>60); Glucose 116 mg/dL (74-106); Potassium 3.1 mmol/L (3.5-5.1); Sodium Level 141 mmol/L (136-145)
== END ==
LOC: OLS.SANC 04:00
PROVIDERS: PCP Internal Medicine; Referring Provider Internal Medicine; Visit Provider Internal Medicine
DX: E11.9 Type 2 diabetes mellitus without complications (principal); E78.5 Hyperlipidemia, unspecified; Z79.899 Other long term (current) drug therapy
CPT/HCPCS: 36415; 80048; 85027

== ENCOUNTER → 2022-12-14 | Outpatient (REF) | payer MEDICARE, MEDICAID, SELFPAY ==
[2022-12-14 09:36] LABS: Hemoglobin 10.7 g/dL (12.0-15.0); Mean Corp Hgb Conc 31.5 g/dL (32-36); Mean Corpuscular Hgb 28.6 pg (27.0-32.0); Mean Corpuscular Volume 90.9 fL (81-99); Mean Platelet Vol. 10.5 fl (6.2-12.0); Platelet Count 158 K/mm3 (150-450); RBC Distribution Width CV 16.6 % (11.6-14.6); RBC Distribution Width SD 54.4 fl (35.1-43.9); Red Blood Count 3.74 M/mm3 (4.2-5.4); White Blood Count 8.4 K/mm3 (4.4-11.0)
[2022-12-14 09:56] LABS: Anion Gap 4 (5-15); BUN 14 mg/dL (7-18); BUN/Creat Ratio 17.3 RATIO (10-20); Calcium,Total 7.9 mg/dL (8.5-10.1); Chloride 112 mmol/L (98-107); Creatinine, Serum 0.81 mg/dL (0.55-1.02); EST Glomerular Filtration Rate 73 mL/min (>60); Est Glom Filt Rate - Afr Amer 89 mL/min (>60); Glucose 53 mg/dL (74-106); Potassium 3.5 mmol/L (3.5-5.1); Sodium Level 143 mmol/L (136-145)
== END ==
LOC: OLS.SANC 05:00
PROVIDERS: PCP Internal Medicine; Visit Provider Internal Medicine
DX: E87.6 Hypokalemia (principal); Z79.899 Other long term (current) drug therapy
CPT/HCPCS: 36415; 80048; 85027

== ENCOUNTER → 2023-01-06 | Outpatient (REF) | payer MEDICARE, MEDICAID, SELFPAY ==
[2023-01-06 09:00] LABS: Color, Urine Yellow (Yellow); Glucose, Dipstick 250 mg/dl (Normal); Ketone-Dipstick Negative (Negative); Leukocyte Esterase-Dipstick 500 /ul (Negative); Nitrite-Dipstick Positive (Negative); Occult Blood-Urine 50 /ul (Negative); Protein-Dipstick 100 mg/dl (Negative); Urine Bilirubin Dipstick Negative (Negative); Urine Clarity Cloudy (Clear); Urine Urobilinogen Normal (Normal)
== END ==
LOC: OLS.SANC 05:00
PROVIDERS: PCP Internal Medicine; Visit Provider Internal Medicine
DX: N39.0 Urinary tract infection, site not specified (principal)
CPT/HCPCS: 81002; 87077; 87086; 87088; 87186

== ENCOUNTER → 2023-01-11 | Outpatient (REF) | payer MEDICARE, MEDICAID, SELFPAY ==
[2023-01-11 09:33] LABS: Hematocrit 33.3 % (37-47); Hemoglobin 10.6 g/dL (12.0-15.0); Mean Corp Hgb Conc 31.8 g/dL (32-36); Mean Corpuscular Hgb 28.4 pg (27.0-32.0); Mean Corpuscular Volume 89.3 fL (81-99); Mean Platelet Vol. 11.2 fl (6.2-12.0); Platelet Count 124 K/mm3 (150-450); RBC Distribution Width CV 16.7 % (11.6-14.6); RBC Distribution Width SD 54.1 fl (35.1-43.9); Red Blood Count 3.73 M/mm3 (4.2-5.4); White Blood Count 6.9 K/mm3 (4.4-11.0)
[2023-01-11 09:45] LABS: Anion Gap 4 (5-15); BUN 16 mg/dL (7-18); BUN/Creat Ratio 16.6 RATIO (10-20); Calcium,Total 7.6 mg/dL (8.5-10.1); Chloride 113 mmol/L (98-107); Creatinine, Serum 0.96 mg/dL (0.55-1.02); EST Glomerular Filtration Rate 60 mL/min (>60); Est Glom Filt Rate - Afr Amer 72 mL/min (>60); Glucose 90 mg/dL (74-106); Potassium 3.2 mmol/L (3.5-5.1); Sodium Level 143 mmol/L (136-145)
== END ==
LOC: OLS.SANC 05:00
PROVIDERS: PCP Internal Medicine; Visit Provider Internal Medicine
DX: E11.9 Type 2 diabetes mellitus without complications (principal); I10 Essential (primary) hypertension; E78.5 Hyperlipidemia, unspecified
CPT/HCPCS: 36415; 80048; 85027

== ENCOUNTER → 2023-01-19 | Outpatient (REF) | payer MEDICARE, MEDICAID, SELFPAY ==
[2023-01-19 08:22] LABS: Hematocrit 36.5 % (37-47); Hemoglobin 11.5 g/dL (12.0-15.0); Mean Corp Hgb Conc 31.5 g/dL (32-36); Mean Corpuscular Hgb 28.5 pg (27.0-32.0); Mean Corpuscular Volume 90.6 fL (81-99); Mean Platelet Vol. 11.4 fl (6.2-12.0); Platelet Count 132 K/mm3 (150-450); RBC Distribution Width CV 16.7 % (11.6-14.6); RBC Distribution Width SD 55.1 fl (35.1-43.9); Red Blood Count 4.03 M/mm3 (4.2-5.4)
[2023-01-19 08:39] LABS: Anion Gap 2 (5-15); BUN 13 mg/dL (7-18); BUN/Creat Ratio 13.4 RATIO (10-20); Calcium,Total 8.3 mg/dL (8.5-10.1); Chloride 113 mmol/L (98-107); Creatinine, Serum 0.97 mg/dL (0.55-1.02); EST Glomerular Filtration Rate 59 mL/min (>60); Est Glom Filt Rate - Afr Amer 72 mL/min (>60); Glucose 74 mg/dL (74-106); Potassium 3.7 mmol/L (3.5-5.1); Sodium Level 143 mmol/L (136-145)
== END ==
LOC: OLS.SANC 05:00
PROVIDERS: PCP Internal Medicine; Visit Provider Internal Medicine
DX: E11.9 Type 2 diabetes mellitus without complications (principal); I10 Essential (primary) hypertension
CPT/HCPCS: 36415; 80048; 85027

== ENCOUNTER → 2023-02-18 | Outpatient (REF) | payer MEDICARE, MEDICAID, SELFPAY ==
[2023-02-18 09:34] LABS: Hematocrit 36.2 % (37-47); Hemoglobin 11.3 g/dL (12.0-15.0); Mean Corp Hgb Conc 31.2 g/dL (32-36); Mean Corpuscular Hgb 28.9 pg (27.0-32.0); Mean Corpuscular Volume 92.6 fL (81-99); Platelet Count 161 K/mm3 (150-450); RBC Distribution Width SD 56.9 fl (35.1-43.9); Red Blood Count 3.91 M/mm3 (4.2-5.4); White Blood Count 8.2 K/mm3 (4.4-11.0)
[2023-02-18 09:40] LABS: Anion Gap 5 (5-15); BUN 13 mg/dL (7-18); BUN/Creat Ratio 14.4 RATIO (10-20); Calcium,Total 8.2 mg/dL (8.5-10.1); Chloride 113 mmol/L (98-107); EST Glomerular Filtration Rate 64 mL/min (>60); Est Glom Filt Rate - Afr Amer 78 mL/min (>60); Glucose 137 mg/dL (74-106); Potassium 3.7 mmol/L (3.5-5.1); Sodium Level 143 mmol/L (136-145)
== END ==
LOC: OLS.SANC 05:00
PROVIDERS: PCP Internal Medicine; Visit Provider Internal Medicine
DX: Z79.899 Other long term (current) drug therapy (principal)
CPT/HCPCS: 36415; 80048; 85027

== ENCOUNTER → 2023-04-05 | Outpatient (REF) | payer MEDICARE, MEDICAID, SELFPAY ==
[2023-04-05 10:33] LABS: Homocysteine 7.2 umol/L (3.2-10.7)
[2023-04-05 14:48] LABS: International Normalized Ratio 1.9; Partial Thromboplast Time 32.1 Seconds (24.1-36.2); Prothrombin Time (Protime)PT. 22.3 SECONDS (11.7-14.9)
[2023-04-09 12:09] LABS: Anti-Cardiolipin Ab, IgA, Qn < 9 APL U/mL (0-11); Anti-Cardiolipin Ab, IgG, Qn < 9 GPL U/mL (0-14); Anti-Cardiolipin Ab, IgM, Qn < 9 MPL U/mL (0-12); Antithrombin 3 Function 110 % (75-135); Dilute Prothrombin Time (dPT) 56.5 sec (0.0-47.6); Dilute Russell Viper Venom 112.6 sec (0.0-47.0); Factor VIII Activity 209 % (56-140); Interpretation Comment: (.); PTT-LA 41.4 sec (0.0-43.5); Protein C, Functional 54 % (73-180); Protein S, Funtional 29 % (63-140); Thrombin Time 21.3 sec (0.0-23.0); dPT Confirm Ratio 0.94 Ratio (0.00-1.34)
== END ==
LOC: OLS.SANC 04:00
PROVIDERS: PCP Internal Medicine; Referring Provider Internal Medicine; Visit Provider Internal Medicine
DX: E11.9 Type 2 diabetes mellitus without complications (principal); I10 Essential (primary) hypertension; E78.5 Hyperlipidemia, unspecified; I63.9 Cerebral infarction, unspecified; C50.919 Malignant neoplasm of unspecified site of unspecified female breast; I82.409 Acute embolism and thrombosis of unspecified deep veins of unspecified lower extremity
CPT/HCPCS: 36415; 81240; 81241; 81291; 83090; 85240; 85300; 85303; 85306; 85610; 85730; 86147

== ENCOUNTER → 2023-04-21 | Outpatient (REF) | payer MEDICARE, MEDICAID, SELFPAY ==
[2023-04-21 08:10] LABS: Hematocrit 32.3 % (37-47); Mean Corpuscular Hgb 28.3 pg (27.0-32.0); Mean Corpuscular Volume 91.5 fL (81-99); Mean Platelet Vol. 10.4 fl (6.2-12.0); Platelet Count 232 K/mm3 (150-450); Red Blood Count 3.53 M/mm3 (4.2-5.4); White Blood Count 6.7 K/mm3 (4.4-11.0)
[2023-04-21 08:19] LABS: ALB/GLOB Ratio 0.4 RATIO (0.9-2.4); AST(SGOT) 20 U/L (15-37); Alanine Aminotransfer ALT/SGPT 25 U/L (13-56); Albumin, Serum 1.7 g/dL (3.2-5.0); Alkaline Phosphatase 174 U/L (45-117); Anion Gap 2 (5-15); BUN 10 mg/dL (7-18); BUN/Creat Ratio 10.9 RATIO (10-20); Calcium,Total 7.9 mg/dL (8.5-10.1); Chloride 110 mmol/L (98-107); Creatinine, Serum 0.92 mg/dL (0.55-1.02); EST Glomerular Filtration Rate 63 mL/min (>60); Est Glom Filt Rate - Afr Amer 77 mL/min (>60); Glucose 78 mg/dL (74-106); Protein, Total 5.7 g/dL (6.4-8.2); Sodium Level 139 mmol/L (136-145)
== END ==
LOC: OLS.SANC 04:00
PROVIDERS: PCP Internal Medicine; Referring Provider Internal Medicine; Visit Provider Internal Medicine
DX: E11.9 Type 2 diabetes mellitus without complications (principal); I10 Essential (primary) hypertension
CPT/HCPCS: 36415; 80053; 85027

== ENCOUNTER → 2023-05-21 | Outpatient (REF) | payer MEDICARE, MEDICAID, SELFPAY ==
--- OUTSIDE RECORDS SUMMARY | 2023-05-21 05:20 | XMS RPT_ITS | CCD ---
Author Name Unknown Address [address] [place] [address] Organization [facility] Care Team Providers Care Senior Electrical Designer Name Role Phone BURT BLOOD Referring Unavailable Amalia Cuevas MD Primary Care Provider Amalia Cuevas Primary Care Provider [phone] [facility] Consulting Unavailable AMALIA CUEVAS Primary Care Unavailable ALYX SHEETS Attending Unavailable ALYX SHEETS Admitting Unavailable ISAURA REGAN Consulting Unavailable Allergies Allergy Classification Reported Allergen(s) Allergy Type Date of Onset Reaction(s) Facility (4 sources) Aspirin; Translations: [ASPIRIN] Drug Allergy 5 Swelling, Other (See Comments), Other [facility] Other [facility] (3 sources) Ibuprofen Drug Allergy 5 Swelling [facility] (2 sources) Latex Propensity to adverse reactions 3 Unknown [facility] Medications Current Medications Medication Drug Class(es) Dates Sig (Normalized) Sig (Original) acarbose 25 mg oral tablet (1 source) alpha-Glucosidase Inhibitor Start: 10-03-2018 acarbose (PRECOSE) 25 MG tablet bifidobacterium animalis [id number] unt / lactobacillus acidophilus [id number] unt oral capsule (2 sources) take 1 capsule by mouth once daily Probiotic Product (GuestShots) 170 MG capsule Take 1 capsule by mouth daily. 0 Active calcium carbonate 600 mg / cholecalciferol 0.01 mg oral tablet (2 sources) Vitamin D take 2 tablets by mouth in the morning, then take 2 tablets by mouth once in the evening Calcium Carb-Cholecalciferol (Calcium 600/Vitamin D) 600-10 MG-MCG tablet Take 2 tablets by mouth in the morning and 2 tablets in the evening. 0 Active camphor 108 mg/ml / phenol 47 mg/ml topical solution (2 sources) camphor-phenol (Campho-Phenique) 10.8-4.7 % liquid Apply 2 Applications topically 2 times daily as needed (back and shoulders). 0 Active cephalexin 500 mg oral capsule (2 sources) Cephalosporin Antibacterial Start: 04-13-2023 End: 04-22-2023 take 2 capsules by mouth three times daily cephalexin (Keflex) 500 MG capsule Take 2 capsules (1,000 mg) by mouth 3 times daily for 9 days. 0 04/13/2023 04/22/2023 Active Cholecalciferol (2 sources) Vitamin D take 1 tablet by mouth once daily Cholecalciferol (VITAMIN D-[address] PO) Take 1 tablet by mouth daily. 0 Active cranberry preparation 400 mg oral capsule (1 source) Non-Standardized Food Allergenic Extract, Non-Standardized Plant Allergenic Extract take 1 tablet by mouth once daily Cranberry 400 MG TABS Take by mouth daily 0 Active D-Mannose 500 MG capsule (2 sources) take 1 tablet by mouth three times daily D-Mannose 500 MG capsule Take 1 tablet by mouth 3 times daily. 0 Active 1 ml denosumab 60 mg/ml prefilled syringe (1 source) RANK Ligand Inhibitor denosumab (PROLIA) 60 MG/ML SOSY SC injection Inject 60 mg into the skin once 0 Active docusate sodium 100 mg oral capsule (3 sources) take 1 capsule by mouth once daily docusate sodium (Colace) 100 MG capsule Take 100 mg by mouth daily. 0 Active estradiol 0.1 mg/ml vaginal cream (2 sources) Estrogen estradiol (Estra ce) 0.1 MG/GM vaginal cream Insert 2 g into the vagina three times a week. Wednesday at night 0 Active lisinopril 10 mg oral tablet (1 source) Angiotensin Converting Enzyme Inhibitor take 1 tablet by mouth once daily lisinopril (PRINIVIL;ZESTRIL) 10 MG tablet Take 10 mg by mouth daily 0 Active loratadine 10 mg oral capsule (1 source) take 1 capsule by mouth once daily loratadine (CLARITIN) 10 MG capsule Take 10 mg by mouth daily 0 Active Magnesium Hydroxide (3 sources) take 30 mg by mouth every twenty-four hours as needed Magnesium Hydroxide (MILK OF MAGNESIA PO) Take 30 mg by mouth Daily as needed (constipation). 0 Active Completed/Discontinued Medications Medication Drug Class(es) Dates Sig (Normalized) Sig (Original) Acetaminophen (5 sources) Start: 04-08-2023 End: 04-13-2023 take 1 tablet by mouth every six hours as needed for pain and fever acetaminophen (Tylenol) tablet 650 mg Problems Active Problems Problem Classification Problem Date Documented Date Episodic/Chronic Cancer of breast (1 source) Malignant neoplasm of unspecified site of left female breast; Translations: [Malignant neoplasm of unspecified site of left female breast] Onset: 06-09-2016 Chronic Diabetes mellitus without complication (3 sources) Diabetes mellitus; Translations: [Type 2 diabetes mellitus without complications] Onset: 06-09-2018 06-09-2018 Chronic Disorders of lipid metabolism (3 sources) Hyperlipidemia; Translations: [Hyperlipidemia, unspecified] Onset: 06-09-2018 06-09-2018 Chronic E Codes: Fall (1 source) Fall; Translations: [Unspecified fall, initial encounter] Episodic Esophageal disorders (3 sources) Gastroesophageal reflux disease; Translations: [Gastro-esophageal reflux disease without esophagitis] Onset: 06-09-2018 06-09-2018 Chronic Mood disorders (3 sources) Depressive disorder; Translations: [Depression] Onset: 06-09-2018 06-09-2018 Chronic Other screening for suspected conditions (not mental disorders or infectious disease) (1 source) Encounter for screening for osteoporosis; Translations: [Encounter for screening for osteoporosis] Onset: 08-02-2018 Episodic Septicemia (except in labor) (8 sources) Sepsis; Translations: [Sepsis, unspecified organism] Onset: 04-08-2023 04-08-2023 Episodic Superficial injury; contusion (2 sources) Contusion of hip; Translations: [Contusion of left hip, initial encounter] Episodic Past or Other Problems Problem Classification Problem Date Documented Da te Episodic/Chronic Other circulatory disease (3 sources) Low blood pressure; Translations: [Hypotension, unspecified] Onset: 06-07-2018 06-07-2018 Episodic Syncope (3 sources) Near syncope; Translations: [Syncope and collapse] Onset: 06-07-2018 06-07-2018 Episodic Results Test Name Value Interpretation Reference Range Facil ity Vital Signs Date Time Vital Sign Value Performing Clinician Faci lity 04-13-2023 07:56-0500 Body temperature 98.1 [degF] Nolberto Moody MD Work Phone: [facility] 04-13-2023 07:56-0500 Diastolic blood pressure 82 mm[Hg] Nolberto Moody MD Work Phone: [facility] 04-13-2023 07:56-0500 Heart rate 95 /min Nolberto Moody MD Work Phone: [facility] 04-13-2023 07:56-0500 Respiratory rate 16 /min Nolberto Moody MD Work Phone: [facility] 04-13-2023 07:56-0500 SaO2% (BldA) [Mass fraction] 96 % Nolberto Moody MD Work Phone: [facility] 04-13-2023 07:56-0500 Systolic blood pressure 135 mm[Hg] Nolberto Moody MD Work Phone: [facility] 04-13-2023 06:53-0500 Body mass index (BMI) [Ratio] 32.38 kg/m2 Nolberto Moody MD Work Phone: [facility] 04-13-2023 06:53-0500 Body weight 82.92 kg Nolberto Moody MD Work Phone: [facility] 04-09-2023 12:44-0500 Body height 160 cm Nolberto Moody MD Work Phone: [facility] 02-23-2021 09:28-0400 Body temperature 97.9 [degF] Nolberto Moody MD Work Phone: [facility] Work Phone: 02-23-2021 09:28-0400 Body weight 81.65 kg Nolberto Moody MD Work Phone: [facility] Work Phone: 02-23-2021 09:28-0400 Diastolic blood pressure 63 mm[Hg] Nolberto Moody MD Work Phone: [facility] Work Phone: 02-23-2021 09:28-0400 Heart rate 57 /min Nolberto Moody MD Work Phone: [facility] Work Phone: 02-23-2021 09:28-0400 Respiratory rate 20 /min Nolberto Moody MD Work Phone: [facility] Work Phone: 02-23-2021 09:28-0400 SaO2% (BldA) [Mass fraction] 100 % Nolberto Moody MD Work Phone: [facility] Work Phone: 02-23-2021 09:28-0400 Systolic blood pressure 130 mm[Hg] Nolberto Moody MD Work Phone: [facility] Work Phone: Encounters Encounter Date Encounter Type Care Provider Facility Start: 04-08-2023 End: 04-13-2023 Evaluation and management of inpatient [facility] Start: 04-08-2023 End: 04-13-2023 Evaluation and management of inpatient Nolberto Moody MD Work Phone: [facility] Cardiac Progressive Care Unit PCU 2E Procedures Date Procedure Procedure Detail Performing Clinician Start: 04-13-2023 Glucose quantitative blood xcpt reagent strip Alyx M Esterle DO Work Phone: Start: 04-13-2023 Comprehensive metabo lic panel Isaura Regan MD Work Phone: Start: 04-12-2023 Glucose quantitative blood xcpt reagent strip Alyx M Esterle DO Work Phone: Start: 04-12-2023 Glucose quantitative blood xcpt reagent strip Alyx M Esterle DO Work Phone: Start: 04-12-2023 Glucose quantitative blood xcpt reagent strip Alyx M Esterle DO Work Phone: Start: 04-12-2023 Glucose quantitative blood xcpt reagent strip Alyx M Esterle DO Work Phone: Start: 04-12-2023 Comprehensive metabo lic panel Alyx M Esterle DO Work Phone: Start: 04-11-2023 Glucose quantitative blood xcpt reagent strip Alyx M Esterle DO Work Phone: Start: 04-11-2023 End: 04-11-2023 Glucose quantitative blood xcpt reagent strip Alyx M Esterle DO Work Phone: Start: 04-11-2023 Glucose quantitative blood xcpt reagent strip Alyx M Esterle DO Work Phone: Start: 04-11-2023 Mri abdomen w/o cont rast material Wilder Stewartlis DO Work Phone: Start: 04-11-2023 Glucose quantitative blood xcpt reagent strip Alyx M Esterle DO Work Phone: Start: 04-11-2023 Glucose quantitative blood xcpt reagent strip Alyx M Esterle DO Work Phone: Start: 04-11-2023 Comprehensive metabo lic panel Alyx M Esterle DO Work Phone: Start: 04-10-2023 Glucose quantitative blood xcpt reagent strip Alyx M Esterle DO Work Phone: Start: 04-10-2023 Glucose quantitative blood xcpt reagent strip Alyx M Esterle DO Work Phone: Start: 04-10-2023 Glucose quantitative blood xcpt reagent strip Alyx M Esterle DO Work Phone: Start: 04-10-2023 End: 04-10-2023 Comprehensive metabolic panel Alyx M Esterle DO Work Phone: Start: 04-09-2023 Assay of lactate Elif Guerrero PA-C Work Phone: Start: 04-09-2023 Culture bacterial quanttative colony count urine Elif Guerrero PA-C Work Phone: Start: 04-09-2023 Urinalysis complete panel - Urine Elif Guerrero PA-C Work Phone: Start: 04-09-2023 Glucose quantitative blood xcpt reagent strip Alyx M Esterle DO Work Phone: Start: 04-09-2023 Assay of lactate Elif Guerrero PA-C Work Phone: Start: 04-09-2023 Glucose quantitative blood xcpt reagent strip Alyx M Esterle DO Work Phone: Start: 04-09-2023 Mri abdomen w/o cont rast material Alyx Carlyn Esterle DO Work Phone: Start: 04-09-2023 End: 04-09-2023 Comprehensive metabolic panel Alyx M Esterle DO Work Phone: Start: 04-09-2023 Drug screen quantita tive vancomycin Alyx Carlyn Esterle DO Work Phone: Start: 04-09-2023 Iaad ia hepatitis b surface antigen Kenia Friend [employer] Work Phone: Start: 04-09-2023 Us abdominal real ti me w/image documentation Kenia Friend [employer] Work Phone: Start: 04-09-2023 Glucose quantitative blood xcpt reagent strip Alyx M Esterle DO Work Phone: Start: 04-09-2023 Antibody screen [facility] Plan of Treatment Date Care Activity Detail Author Start: 01-01-2023 COVID-19 Vaccine ( season) COVID-19 Vaccine ( season) [employer] [facility] Start: 01-01-2023 Influenza vaccination Influenza Vaccine (#1) [employer] [facility] Start: 06-04-2021 DTaP/Tdap/Td Vaccines (2 - Td or Tdap) DTaP/Tdap/Td Vaccines (2 - Td or Tdap) [employer] Start: 01-01-2021 Influenza vaccination Flu vaccine (#1) [employer] Work Phone: Start: 06-09-2019 Creatinine measurement Creatinine monitoring [employer] Work Phone: Start: 06-09-2019 Potassium monitoring Potassium monitoring [employer] Work Phone: Start: 06-07-2019 Hemoglobin A1c measurement A1C test (Diabetic or Prediabetic) [employer] Work Phone: Start: 10-23-2018 Annual Wellness Visit (AWV) Annual Wellness Visit (AWV) [facility] Work Phone: Start: 05-03-2016 Pneumococcal 65+ years Vaccine (2 of 2 - PPSV23) Pneumococcal 65+ years Vaccine (2 of 2 - PPSV23) [facility] Work [facility]: Start: 05-29-2015 Zoster Vaccines (1 of 2) Zoster Vaccines (1 of 2) [facility] Start: 2006 RSV Immunization aged 60 or older (1 - 1-dose 60+ series) RSV Immunization aged 60 or older (1 - 1-dose 60+ series) [facility] Start: 2001 Screening for osteoporosis DEXA (modify frequency per FRAX score) [employer] Work Phone: Start: 1996 Shingles Vaccine (1 of 2) Shingles Vaccine (1 of 2) [employer] Work Phone: Start: 1991 Screening for malignant neoplasm of colon Colon cancer screen colonoscopy [facility] Work Phone: Start: 1965 DTaP/Tdap/Td vaccine (1 - Tdap) DTaP/Tdap/Td vaccine (1 - Tdap) [employer] Work Phone: Start: 1964 Diabetic microalbuminuria test Diabetic microalbuminuria test [employer] Work Phone: Start: 1958 COVID-19 Vaccine (1) COVID-19 Vaccine (1) [employer] Work Phone: Start: 1958 Depresssion Monitoring Depresssion Monitoring [facility] Start: 1956 Diabetic foot examination Diabetic foot exam [facility] Work Phone: Start: 1956 Diabetic retinal exam Diabetic retinal exam [employer] Work Phone: Start: 1956 Lipid panel Lipid screen [employer] Work Phone: Start: 1946 Thyroid stimulating hormone measurement TSH Level [facility] End: 04-08-2023 Bacteria identified in Blood by Culture [facility] Work Phone: Immunizations Immunization Date Immunization Notes Care Provider James leongphani 02-04-2021 influenza virus vaccine, unspecified formulation Nolberto Moody MD Work Phone: [facility] 01-31-2018 influenza, high dose seasonal, preservative-free Nolberto Moody MD Work Phone: [facility] 05-03-2015 pneumococcal conjuga te vaccine, 13 valent Nolberto Moody MD Work Phone: [facility] Work Phone: Payers Date Payer Category Payer Medicaid [facility] MED[facility] MEDICAID ONLY [id number] 2022-Present [address] [place] [address] Medicaid HMO [id number] 2018 Private Health Insurance [id number] Social History Date Type Detail Facility Start: 02-23-2021 Tobacco smoking stat [facility] Former smoker [facility] Work Phone: Start: 02-23-2021 Tobacco use and exposure Never used [facility] Start: 02-23-2021 End: 04-08-2023 Alcohol intake Current drinker of alcohol (finding) [facility] Work Phone: Start: 1945 Sex Assigned At Not on file [facility] Work Phone: Exposure to SARS-CoV -2 (event) Not sure [facility] History of tobacco use Current smoker [facility] Start: 04-08-2023 End: 04-09-2023 History of Social function [facility] Start: 04-08-2023 End: 04-09-2023 Humiliation, Afraid, Rape, and Kick questionnaire [HARK] [facility] Within the last year , have you been afraid of your partner or ex-partner? No [facility] How often to you hav e a drink containing alcohol? 2-4 times a month [facility] How many standard dr inks containing alcohol do you have on a typical day? Patient does not drink [facility] How often do you hav e 6 or more drinks on 1 occasion? Never [facility] Clinical Notes 06-26-2020 to 04-13-2023 Alyx Sheets, DO - 04/13/2023 3:04 PM Shireen Massey RN - 04/13/2023 2:54 PM Cisco Corcoran OT - 04/13/2023 11:13 AM Theodora Regan MD - 04/12/2023 4:27 PM Sarah Instr - Activity Note Date & Type Note Facility 04-13-2023 Note Discharge Summary Christa Stout : 1945 ADMIT DATE: 04/08/2023 DISCHARGE DATE: 04/13/2023 PRIMARY CARE PHYSICIAN: Amalia Cuevas VISIT STATUS: Admission CODE STATUS: Prior DISCHARGE DIAGNOSES: Principal Problem: Sepsis (HCC) HOSPITAL COURSE: Christa Stout is a 78 y.o. who presents to the emergency department with concern for hypotension and hyperglycemia. [facility] with reported hyperglycemia in the 400s and hypotension noted approximately 80s over 60s. Patient is denying any further complaints today. She specifically denies any further abdominal pain, nausea, vomiting, fevers, chills. No complaints of chest pain or shortness of breath. 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 Arrives via paramedics with IV fluids running. Her workup didn't showanything however it appears she is septic with anasarca within the abdomen and increased liver enzymes. She is being placed on iv zosyn and vanco and admitted for further workup she was positive for ecoli bacteremia and continued on current meds she was then changed to cefazolin and then to keflex for dc. She did well overall . She had elevated LFT's and her MRCP showed a dilated CB that GI wasn't concerned with. Sme mild pancreatic ductal dilation . Recommended and repart mrcp/mri on 3 months if LFTS remain high vs and EUS recommend f/ at [facility] with Dr Cowart for eval and treatment if EUS necessary . Pt is going back to [facility] today SIGNIFICANT DIAGNOSTIC STUDIES: Labs xrays MRI MRCP CONSULTANTS: GI ID RECOMMENDED NEXT STEPS: SNF DISCHARGE MEDICATIONS: Medication List START taking these medications cephalexin 500 MG capsule Commonly known as: Keflex Take 2 capsules (1,000 mg) by mouth 3 times daily for 9 days. potassium chloride CR 20 MEQ ER tablet Commonly known as: Klor-Con M20 Take 1 tablet (20 mEq) by mouth 2 times daily. Do not crush or chew. CONTINUE taking these medications acetaminophen 325 MG tablet Commonly known as: Tylenol * bisacodyl 10 MG suppository Commonly known as: Dulcolax * bisacodyl 5 MG EC tablet Commonly known as: Dulcolax Calcium 600/Vitamin D 600-10 MG-MCG tablet Generic drug: Calcium Carb-Cholecalciferol camphor-phenol 10.8-4.7 % liquid Commonly known as: Campho-Phenique carboxymethylcellulose 0.5 % ophthalmic solution Commonly known as: Refresh Plus cyanocobalamin 1000 MCG tablet Commonly known as: Vitamin B-12 D-Mannose 500 MG capsule docusate sodium 100 MG capsule Commonly known as: Colace Eliquis 5 MG tablet Generic drug: apixaban estradiol 0.1 MG/GM vaginal cream Commonly known as: Estrace exemestane 25 MG tablet Commonly known as: Aromasin FLUoxetine 10 MG capsule Commonly known as: PROzac insulin glargine 100 UNIT/ML injection Commonly known as: Lantus levothyroxine 25 MCG tablet Commonly known as: Synthroid, Levoxyl Melatonin 5 MG capsule MILK OF MAGNESIA PO omeprazole [address] capsule Commonly known as: PriLOSEC oxybutynin XL 15 MG 24 hr tablet Commonly known as: Ditropan-XL simethicone 80 MG chewable tablet Commonly known as: Mylicon traMADol 50 MG tablet Commonly known as: Ultram UltraFlora [facility] 170 MG capsule VITAMIN D-[address] PO * This list has 2 medication(s) that are the same as other medications prescribed for you. Read the directions carefully, and ask your doctor or other care provider to review them with you. Where to Get Your Medications Information about where to get these medications is not yet available Ask your nurse or doctor about these medications cephalexin 500 MG capsule potassium chloride CR 20 MEQ ER tablet DIET: No diet orders on file ACTIVITY: Up with assist COMPLEXITY OF FOLLOW UP: [] Moderate Complexity: follow up within 7-14 calendar days (28311) [] Severe Complexity: follow up within 7 calendar days (98541) FOLLOW UP TESTING, PENDING RESULTS OR REFERRALS AT TRANSITIONAL CARE VISIT: [] Yes [] No PENDING STUDIES: none DISPOSITION: Skilled Facility FACILITY/HOME CARE AGENCY NAME: [facility] Follow up with Amalia Cuevas [address] [facility] [id number] [facility] INSTRUCTIONS TO MA/SW: Please call patient on day after discharge (must document patient contacted within 2 business days of discharge). FOLLOW UP QUESTIONS FOR MA/SW: 1. Did you get medications filled and taking them as instructed from discharge? 2. Are you following your discharge instructions from your hospital stay? 3. Please confirm patient is scheduled for a follow up appointment within the above time frame. DISCHARGE TIME: > 30 minutes SIGNED: ALYX SHEETS DO 04/13/2023, 10:28 PM [facility] 04-13-2023 Hospital course Narrative Images from the original note were not included. Discharge Summary Christa Stout : 1945 ADMIT DATE: 04/08/2023 DISCHARGE DATE: 04/13/2023 PRIMARY CARE PHYSICIAN: Amalia Cuevas VISIT STATUS: Admission CODE STATUS: Prior DISCHARGE DIAGNOSES: Principal Problem: Sepsis (HCC) HOSPITAL COURSE: Christa Stout is a 78 y.o. who presents to the emergency department with concern for hypotension and hyperglycemia. Patient [facility] from [facility] facility with reported hyperglycemia in the 400s and hypotension noted approximately 80s over 60s. Patient is denying any further complaints today. She specifically denies any further abdominal pain, nausea, vomiting, fevers, chills. No complaints of chest pain or shortness of breath. 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 Arrives via paramedics with IV fluids running. Her workup didn't showanything however it appears she is septic with anasarca within the abdomen and increased liver enzymes. She is being placed on iv zosyn and vanco and admitted for further workup she was positive for ecoli bacteremia and continued on current meds she was then changed to cefazolin and then to keflex for dc. She did well overall . She had elevated LFT's and her MRCP showed a dilated CB that GI wasn't concerned with. Sme mild pancreatic ductal dilation . Recommended and repart mrcp/mri on 3 months if LFTS remain high vs and EUS recommend f/ at [facility] with Dr Cowart for eval and treatment if EUS necessary . Pt is going back to [facility] today SIGNIFICANT DIAGNOSTIC STUDIES: Labs xrays MRI MRCP CONSULTANTS: GI ID RECOMMENDED NEXT STEPS: SNF DISCHARGE MEDICATIONS: Medication List START taking these medications cephalexin 500 MG capsule Commonly known as: Keflex Take 2 capsules (1,000 mg) by mouth 3 times daily for 9 days. potassium chloride CR 20 MEQ ER tablet Commonly known as: Klor-Con M20 Take 1 tablet (20 mEq) by mouth 2 times daily. Do not crush or chew. CONTINUE taking these medications acetaminophen 325 MG tablet Commonly known as: Tylenol * bisacodyl 10 MG suppository Commonly known as: Dulcolax * bisacodyl 5 MG EC tablet Commonly known as: Dulcolax Calcium 600/Vitamin D 600-10 MG-MCG tablet Generic drug: Calcium Carb-Cholecalciferol camphor-phenol 10.8-4.7 % liquid Commonly known as: Campho-Phenique carboxymethylcellulose 0.5 % ophthalmic solution Commonly known as: Refresh Plus cyanocobalamin 1000 MCG tablet Commonly known as: Vitamin B-12 D-Mannose 500 MG capsule docusate sodium 100 MG capsule Commonly known as: Colace Eliquis 5 MG tablet Generic drug: apixaban estradiol 0.1 MG/GM vaginal cream Commonly known as: Estrace exemestane 25 MG tablet Commonly known as: Aromasin FLUoxetine 10 MG capsule Commonly known as: PROzac insulin glargine 100 UNIT/ML injection Commonly known as: Lantus levothyroxine 25 MCG tablet Commonly known as: Synthroid, Levoxyl Melatonin 5 MG capsule MILK OF MAGNESIA PO omeprazole [address] capsule Commonly known as: PriLOSEC oxybutynin XL 15 MG 24 hr tablet Commonly known as: Ditropan-XL simethicone 80 MG chewable tablet Commonly known as: Mylicon traMADol 50 MG tablet Commonly known as: Ultram UltraFlora [facility] 170 MG capsule VITAMIN D-[address] PO * This list has 2 medication(s) that are the same as other medications prescribed for you. Read the directions carefully, and ask your doctor or other care provider to review them with you. Where to Get Your Medications Information about where to get these medications is not yet available Ask your nurse or doctor about these medications cephalexin 500 MG capsule potassium chloride CR 20 MEQ ER tablet DIET: No diet orders on file ACTIVITY: Up with assist COMPLEXITY OF FOLLOW UP: [] Moderate Complexity: follow up within 7-14 calendar days (90941) [] Severe Complexity: follow up within 7 calendar days (08687) FOLLOW UP TESTING, PENDING RESULTS OR REFERRALS AT TRANSITIONAL CARE VISIT: [] Yes [] No PENDING STUDIES: none DISPOSITION: Skilled Facility FACILITY/HOME CARE AGENCY NAME: [facility] Follow up with Amalia Cuevas [address] [address] [facility] [id number] [facility] INSTRUCTIONS TO MA/SW: Please call patient on day after discharge (must document patient contacted within 2 business days of discharge). FOLLOW UP QUESTIONS FOR MA/SW: 1. Did you get medications filled and taking them as instructed from discharge? 2. Are you following your discharge instructions from your hospital stay? 3. Please confirm patient is scheduled for a follow up appointment within the above time frame. DISCHARGE TIME: > 30 minutes SIGNED: ALYX SHEETS DO 04/13/2023, 10:28 PM documented in this encounter [facility] 04-13-2023 History of Present illness Narrative Report called to Samantha at [facility]. supply chain tech scheduled for 3pm. Images from the original note were not included. OCCUPATIONAL THERAPY [facility] Treatment Note Name/MRN: Christa Stout ([id number]) Date of : 1945 Age: 78 y.o. Room[facility]: [facility] A Visit #: 1 out of 7 visits Discharge Recommendation: ECF with OT Equipment Needed: No (TBD at next level of care) Prior Level of Function ADL Assistance: Needs Assist Ambulation Assistance: Non-Ambulatory Transfer Assistance: Needs Assist Assessment Pt seen for OT treatment at this time to focus on bed mobiltiy, sitting balance and tolerance with hygiene task. She demos diminished activity tolerance this date, tolerating ~ 6 minutes in sitting at EOB before requiring return to supine. She is limited by diminished strength, endurance, and balance this date for participation in functional activities. She would continues to benefit from skilled OT services to address the below. Recommend planned discharge for return to ECF with OT. Subjective Pleasant and cooperative. OK to see per RN Pain: mild heel pain, however did not rate Medical Precautions: No active isolations Proper PPE donned/doffed in accordance with facility standards. Fall Risk: [place] Fall Risk Score: 60 (High Risk) Precautions/Restrictions: N/A Family/Caregiver Present: none Objective ADLs Grooming: after setup Pt completed face washing task at bed level this date with increased time and cueing for initial initiation. She was able to complete without physical assist. Bed Mobility Supine to sit: Max Assist Sit to supine: Max Assist Scooting: Max Assist HOB elevated. Increased time and assist required this date to complete bed mobility tasks. Pt required MAX A this date for BLE management, trunk control, and scooting to reach EOB and for return to supine. Cueing for proper hand placement to utilize bed features to increase ease of completion with fair follow through. Increased reliance on draw pads to complete scooting to EOB with MAX A x2 to scoot up in bed towards HOB. She was able to tolerate ~ 6 minutes seated at EOB with varying CGA - MOD A with noted posterior lean. Pt initially able to correct with cueing and increased reliance on bed rail, however required increased assist as pt fatigued. Pt initially agreeable to attempt transfer at this time, however d/t rapid fatigue, required return to supine for safety and rest. Cognition: Pt demos good ability to follow commands at this time, however occasionally requires increased cueing for safety and stability with cueing for sequencing and initiation. Minimally increased time required for processing this date. She demos diminished problem soling at this time with increased time and assist to identify and correct errors. Plan Continue acute OT per plan of care. Safety/Education Safety Safety Devices in place: All fall risk precautions in place, call light within reach, left in bed, bed alarm in place, patient at risk for falls, and nurse notified Restraints: No Education Education Given To: patient Education Provided: OT Role, Plan of Care, ADL Adaptive Strategies, Equipment, Fall Prevention Education, and bed mobility tech Education Method: Verbal, Demonstration, and Teach Back Barriers to Learning: Cognition Education Outcome: Verbalized Understanding and Continued Education Needed AM-PAC AM-PAC Inpatient Daily Activity Raw Score: 14 ADL Inpatient [facility] G-Code Modifier: CK Goals Patient Stated Goal: none stated Encounter Problems Encounter Problems (Active) Dressing Upper Extremities Patient will complete upper body dressing with SBA (Not Addressed) Start: 04/09/23 Expected End: 04/16/23 Dressings Lower Extremities Patient will dress lower body with mod A (Not Addressed) Start: 04/09/23 Expected End: 04/16/23 Toileting Patient will complete toileting tasks at bedside commode with min assist. (Not Addressed) Start: 04/09/23 Expected End: 04/16/23 Transfers Patient will complete functional transfer with least restrictive device with min assist in order to prepare for ambulation. (Not Addressed) Start: 04/09/23 Expected End: 04/16/23 Patient will perform bed mobility with SBA in order to improve independence and prepare for out of bed mobility. (Slowly Progressing) Start: 04/09/23 Expected End: 04/16/23 Therapy Time Individual Co-treatment Time In 1004 Time Out 1024 Minutes 20 Timed Code Treatment Minutes: 20 Minutes (ADL) Dax Corcoran OT Images from the original note were not included. [facility] - Infectious Diseases Attending Progress Note Subjective: Follow up for E coli bacteremia. She was alert, laying on bed, c/o tiredness and weakness, also, inability to walk; denied fever, abdominal pain, dysuria, appeared debilitated and ill. She was admitted on 04/08/23 with hypotension (BP 69/46) and hyperglycemia, labs showed WBC 19.6, LA 2.1, Cr 1.11, AST 290, ALT 166, Bili 2.7, CT abd/pelvis showed diffuse anasarca throughout the subcutaneous fatty tissue, extrahepatic biliary duct distention ,and prominent pancreatic duct, blood cxs grew E coli. She has h/o breast CA s/p bilateral mastectomy with reoccurrence Lt chest s/p resection- not currently on therapy, cholecystectomy, gastric bypass, DM II, DVT, HTN, HL, and Osteoporosis. She was examined; notes, labs, imaging were reviewed and treatment plan was discussed. Objective: Vitals: Patient Vitals for the past 24 hrs: BP Temp Temp src Pulse Resp SpO2 Weight 04/12/23 1623 (!) 141/93 36.6 C (97.8 F) -- 109 16 98 % -- 04/12/23 1147 (!) 143/86 36.7 C (98.1 F) Temporal 95 18 98 % -- 04/12/23 0739 138/81 36.8 C (98.3 F) Temporal 78 16 99 % -- 04/12/23 0700 -- -- -- -- -- -- 81.9 kg (180 lb 8 oz) 04/12/23 0349 134/70 36.8 C (98.3 F) Temporal 78 -- 97 % -- 04/11/23 2315 133/73 36.7 C (98 F) Temporal 87 -- 96 % -- 04/11/23 2058 118/60 36.9 C (98.4 F) Temporal 83 -- 98 % -- Physical Exam Vitals and nursing note reviewed. Constitutional: General: She is not in acute distress. Appearance: Normal appearance. She is well-developed. She is obese. She is not ill-appearing. Comments: interactive, cooperative, conversant. HENT: Head: Normocephalic and atraumatic. Right Ear: External ear normal. Left Ear: External ear normal. Nose: Nose normal. Mouth/Throat: Mouth: Mucous membranes are moist. Pharynx: Oropharynx is clear. No oropharyngeal exudate. Eyes: General: No scleral icterus. Extraocular Movements: Extraocular movements intact. Conjunctiva/sclera: Conjunctivae normal. Pupils: Pupils are equal, round, and reactive to light. Cardiovascular: Rate and Rhythm: Normal rate and regular rhythm. Pulses: Normal pulses. Heart sounds: Normal heart sounds. No murmur heard. No friction rub. No gallop. Pulmonary: Effort: Pulmonary effort is normal. No respiratory distress. Breath sounds: Normal breath sounds. No stridor. No wheezing, rhonchi or rales. Abdominal: General: Abdomen is flat. There is no distension. Palpations: Abdomen is soft. There is no mass. Tenderness: There is no abdominal tenderness. There is no guarding or rebound. Hernia: No hernia is present. Genitourinary: Comments: No suprapubic or flank pain. Musculoskeletal: General: No swelling or deformity. Normal range of motion. Right lower leg: No edema. Left lower leg: No edema. Skin: General: Skin is warm and dry. Coloration: Skin is not jaundiced. Findings: No rash. Comments: Bruising at R forearm IV site. Neurological: General: No focal deficit present. Mental Status: She is alert and oriented to person, place, and time. Mental status is at baseline. Cranial Nerves: No cranial nerve deficit. Deep Tendon Reflexes: Reflexes normal. Psychiatric: Mood and Affect: Mood normal. Behavior: Behavior normal. Thought Content: Thought content normal. Judgment: Judgment normal. Labs: Recent Labs 04/10/23 0233 04/11/23 0532 04/12/23 0533 NA 134* 136 139 K 3.0* 3.0* 3.2* CL 111* 112* 114* CO2 20* 19* 21* BUN 13 10 9 CREATININE 0.97 0.92 0.85 GLUCOSE 172* 73 87 CALCIUM 6.4* 6.4* 6.6* PROT 4.0* 4.0* 4.4* BILITOT 1.2 0.8 0.5 ALKPHOS 230* 224* 231* AST 101* 70* 68* ALT 109* 94* 73* Recent Labs 04/10/23 0233 04/11/23 0532 WBC 10.3 5.6 HGB 9.2* 8.6* HCT 27.5* 25.3* PLT 95* 79* Micro: No results for input(s): COVID19 in the last 72 hours. 04/09/2023204904/12/2023 0955 Urine culture [[id number]] (Abnormal) Urine, Clean Catch Final result Component Value Urine Culture Normal urogenital ruben present >100,000 CFU/mL Vilma glabrata Abnormal 04/08/2023223104/11/2023 0719 Blood culture Site #1 - Suspected Infection [[id number]] (Abnormal) Blood, Venous Final result Component Value Blood Culture Escherichia coli Panic For identification and/or sensitivity, refer to culture collected on: 04/08/23 @ 22:20, [id number] This is an edited result. Previous organism was Gram-negative bacilli on 04/09/2023 at 1153 EST. 04/08/2023222104/08/2023 2306 COVID-19, Flu A/B, and RSV Combo [[id number]] Swab from Nasopharynx Final result Component Value SARS-CoV-2 Not Detected Respiratory Syncytial Virus Not Detected Influenza A Not Detected Influenza B Not Detected 04/08/2023221904/11/2023 0720 Blood culture Site #2 - Suspected Infection [[id number]] (Abnormal) Blood, Venous Final result Component Value Blood Culture Escherichia coli Panic 04/08/2023221904/09/2023 1148 Blood Culture Identification - Anaerobic [[id number]] (Abnormal) Blood, Venous Final result Component Value Escherichia coli Detected Abnormal Lines: PIV site looked ok Radiography/Echo/Other: MR abdomen wo contrast [[id number]] Collected: 04/11/23 1356 Order Status: Completed Updated: 04/11/23 1413 Narrative: Patient Name: CHRISTA STOUT : 1945 Exam Date/Time: 04/11/2023 12:15 Procedure: MR ABDOMEN WO CONTRAST Ordering Provider: SOSA JEFFREY Reason For Exam: Dilated bile duct and pancreatic duct MRI ABDOMEN WITHOUT with MRCP EXAM DATE AND TIME: 04/11/2023 12:15 PM EST INDICATION: 78 years Female with Dilated bile duct and pancreatic duct TECHNIQUE: Multiplanar multisequence MR images of the abdomen were performed, including diffusion-weighted images without contrast. Thick section multi-angle and thin section multi-slice MRCP sequences were performed through the abdomen as well. COMPARISON: MRI abdomen from 04/09/2023. CT abdomen pelvis from 04/08/2023. FINDINGS: Lack of intravenous contrast material limits evaluation of the vascular and visceral structures. 3-D MRCP images could not be generated due to scatter air at the end of the exam. DWI imaging also could not be performed. Liver: The liver is normal in size and contour. There is drop in signal on the opposed-phase images consistent with fat deposition. No focal liver lesion. Biliary tree: Status post cholecystectomy. Minimal intrahepatic ductal dilatation. Mild prominence of the common hepatic and common bile ducts, which measure up to 13 mm in diameter. No evidence of choledocholithiasis. No abrupt cut off of the duct. Spleen: Calcified splenic granulomas. Adrenals:Benign left adrenal adenoma, measuring 3.2 cm. Pancreas: Prominence of the main pancreatic duct, which measures up to 9 mm in diameter, within the head of the pancreas. No abrupt cut off of the duct. Diffuse pancreatic parenchymal atrophy. No peripancreatic fluid collection. Colonic diverticulosis. 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 Edematous circumferential wall thickening of the gastric antrum. Postsurgical change of the ventral midline upper abdominal wall. Trace ascites. Kidneys: No hydronephrosis. Hyperintense T2 left renal cortical lesion, measuring 6 mm. This likely represents a tiny cyst. Lymph nodes: No lymphadenopathy. Vasculature: Grossly unremarkable on this noncontrast exam. No significant collaterals or esophageal varices. Visualized Osseous structures: Degenerative change of the spine. Impression: Abnormal distention of the extrahepatic duct and the common bile duct, of uncertain etiology. No evidence of choledocholithiasis. No definite evidence of an obstructing mass. Consider further evaluation with ERCP. Distal gastritis, involving the excluded portion of the stomach. Trace ascites. Benign left adrenal adenoma. Diffuse hepatic steatosis. Colonic diverticulosis. Report Dictated on Electronically Signed By: Cyndee Huff MD Electronically Signed Date/Time: 04/11/2023 2:12 PM EST MR abdomen wo contrast [[id number]] Collected: 04/09/23 1535 Order Status: Completed Updated: 04/09/23 1544 Narrative: Patient Name: CHRISTA STOUT : 1945 Exam Date/Time: 04/09/2023 15:18 Procedure: MR ABDOMEN WO CONTRAST Ordering Provider: SHEETS LISA Reason For Exam: Adrenal mass, 1-2cm, no history of malignancy MRI ABDOMEN WITHOUT CONTRAST: CLINICAL INFORMATION: Indeterminate left adrenal gland lesion COMPARISON: CT of the abdomen and pelvis performed 04/08/2023 Multiplanar multi echo MR images of the abdomen were obtained. In and out of phase imaging was performed in the axial and coronal planes. The liver, and spleen, pancreas, and right and left kidneys appear unremarkable. The right adrenal gland is normal. There is left adrenal gland enlargement measuring up to 3.1 cm in size. On the in phase imaging this lesion is a intermediate signal intensity with signal dropout on the out of phase images. These findings are consistent with a lipid rich adenoma. There is no pathologic adenopathy. There is no free fluid. On the post contrast images, there is homogeneous, normal enhancement of the visceral organs. Impression: There is a 3.1 cm left adrenal gland mass. 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 Report Dictated on Electronically Signed By: Junior Luna DO Electronically Signed Date/Time: 04/09/2023 3:43 PM EST US abdomen complete [[id number]] Collected: 04/09/23 1138 Order Status: Completed Updated: 04/09/23 1140 Narrative: Patient Name: CHRISTA STOUT : 1945 Exam Date/Time: 04/09/2023 11:07 Procedure: US ABDOMEN COMPLETE Ordering Provider: FRIEND JILL Reason For Exam: Sepsis ULTRASOUND ABDOMEN: INDICATION: Sepsis COMPARISON: None. Sonogram of the abdomen is performed. The liver is increased in echotexture. No hyper or hypo echoic masses are seen. There is no intrahepatic biliary ductal dilatation. The gallbladder is surgically absent. The common bile duct diameter of 2.9 mm is within normal limits. The pancreas is normal in echotexture. No obvious pancreatic mass or peripancreatic fluid collection is identified. The spleen is unremarkable and measures 8.4 x 5.0 x 3.7 cm. Multiple splenic granulomas are present. Cursory examination of the kidneys is performed. The right kidney measures 8.9 x 5.0 x 4.3 cm. The left kidney measures 9.5 x 6.2 x 5.3 cm. A 1.4 cm cyst is seen within the midportion of the left kidney. There is no hydronephrosis. There is no ascites. The visualized portions of the aorta and inferior vena cava are within normal limits. No sonographic Patel's sign was elicited during the examination. Impression: Fatty liver, otherwise unremarkable ultrasound of the abdomen. Report Dictated on Electronically Signed By: Junior Luna DO Electronically Signed Date/Time: 04/09/2023 11:[address] abdomen pelvis w contrast [[id number]] Collected: 04/08/232329 Order Status: Completed Updated: 04/08/232345 Narrative: [facility] : 1945 [id number] Exam Date/Time: 04/08/2023 23:22 Procedure: CT ABDOMEN PELVIS W CONTRAST Ordering Provider: MOODY NICHOLAS Reason For Exam: hypotension, transaminitis, eval for infection INDICATION: 78-year-old; low blood pressure; history of bilateral DVTs from five days ago and is on blood thinners; hypotension and transaminitis; evaluate for infection Scan Parameters: Multiple axial 1mm images were obtained of the chest and 3mm images of the abdomen and pelvis. Coronal and sagittal reconstructions were reviewed as well. Dose reduction was employed with automated exposure control. Additional reconstructed MIP images provided with 3-D postprocessing. CONTRAST: 75ml of Isovue 370 IV COMPARISON: No comparison FINDINGS: CHEST: There is no pulmonary artery embolus. The pulmonary artery is not dilated. A small left pleural effusion is present with compressive atelectasis and/or infiltrates. There is mild pulmonary vascular congestion. Granulomatous calcifications are present. Tracheobronchial tree calcifications are present. The thyroid gland is small, correlate with thyroid lab values. The esophagus is not well-distended. There are postsurgical changes at the GE junction. There is no evidence for right heart strain. There is no sizable pericardial effusion. The aorta contour is within normal limits. The osseous structures appear intact. Healing right rib #10 fractures with callus formation. Thoracic vertebral bodies appear intact. There is subtle sclerosis of the mid sternum which may be due to callus formation. ABDOMEN AND PELVIS: There is grade 2 anterolisthesis of L4 in relation to L5 with bilateral pars defect. Schmorl's nodes are noted on multiple levels. The bone mineralization is decreased. Postsurgical changes of the right and left femur are noted. The paraspinous muscles are within normal limits. There is diffuse edema throughout the subcutaneous fatty tissue of the abdomen and pelvis. The liver contour is within normal limits. The gallbladder is surgically absent with clips present. Extrahepatic biliary duct distention is possibly secondary to gallbladder removal, correlate clinically. The pancreatic duct is distended along its course, of uncertain etiology. Multiple splenic granulomatous calcifications are present. A left adrenal gland 3.1 cm nodule is present, incompletely assessed on this exam. The right adrenal gland is within normal limits. The kidneys symmetrically enhance without hydronephrosis. A tiny probable left renal cyst is present although this is too small to accurately characterize. There is mild bladder wall thickening. The uterus is surgically absent. Calcifications are associated with the right ovary. There are atherosclerotic changes throughout the vasculature. A small amount of fluid is present dependently in the pelvis posteriorly. There are postsurgical changes along the anterior abdominal and pelvic wall. Postsurgical change at the GE junction and stomach. Limited evaluation of bowel loops due to lack of GI contrast and poor distention. The appendix is not clearly identified in the right lower quadrant. Multiple colonic diverticuli are present. Impression: CHEST: 1. No pulmonary artery embolus. 2. Pulmonary vascular congestion with a small left pleural effusion with compressive atelectasis and/or infiltrate. 3. Healing right rib 10 fracture with callus formation. Subtle sclerosis along the mid sternum with mild cortical irregularity likely reflects a healing fracture. ABDOMEN/PELVIS: 1. Diffuse anasarca throughout the subcutaneous fatty tissue. 2. There is an indeterminate left adrenal gland 3.1 cm nodule. Recommend follow-up MRI adrenal gland protocol when feasible. 3. Small hiatal hernia with postsurgical changes of the stomach and gastroesophageal junction 4. Cholecystectomy with extrahepatic biliary duct distention, correlate with lab values. 5. The pancreatic duct is prominent, correlate with lab values. 6. Additional findings, as above. Report Dictated on Electronically Signed By: Judy Rodriguez MD Electronically Signed Date/Time: 04/08/2023 11:[address] chest angiogram w and/or wo IV contrast [[id number]] Collected: 04/08/232329 Order Status: Completed Updated: 04/08/232345 Narrative: Patient Name: CHRISTA STOUT : 1945 Exam Date/Time: 04/08/2023 23:21 Procedure: CT CHEST ANGIOGRAM W AND/OR WO IV CONTRAST Ordering Provider: MOODY NICHOLAS Reason For Exam: rule out PE, recent DVT's hypotension INDICATION: 78-year-old; low blood pressure; history of bilateral DVTs from five days ago and is on blood thinners; hypotension and transaminitis; evaluate for infection Scan Parameters: Multiple axial 1mm images were obtained of the chest and 3mm images of the abdomen and pelvis. Coronal and sagittal reconstructions were reviewed as well. Dose reduction was employed with automated exposure control. Additional reconstructed MIP images provided with 3-D postprocessing. CONTRAST: 75ml of Isovue 370 IV COMPARISON: No comparison FINDINGS: CHEST: There is no pulmonary artery embolus. The pulmonary artery is not dilated. A small left pleural effusion is present with compressive atelectasis and/or infiltrates. There is mild pulmonary vascular congestion. Granulomatous calcifications are present. Tracheobronchial tree calcifications are present. The thyroid gland is small, correlate with thyroid lab values. The esophagus is not well-distended. There are postsurgical changes at the GE junction. There is no evidence for right heart strain. There is no sizable pericardial effusion. The aorta contour is within normal limits. The osseous structures appear intact. Healing right rib #10 fractures with callus formation. Thoracic vertebral bodies appear intact. There is subtle sclerosis of the mid sternum which may be due to callus formation. ABDOMEN AND PELVIS: There is grade 2 anterolisthesis of L4 in relation to L5 with bilateral pars defect. Schmorl's nodes are noted on multiple levels. The bone mineralization is decreased. Postsurgical changes of the right and left femur are noted. The paraspinous muscles are within normal limits. There is diffuse edema throughout the subcutaneous fatty tissue of the abdomen and pelvis. The liver contour is within normal limits. The gallbladder is surgically absent with clips present. Extrahepatic biliary duct distention is possibly secondary to gallbladder removal, correlate clinically. The pancreatic duct is distended along its course, of uncertain etiology. Multiple splenic granulomatous calcifications are present. A left adrenal gland 3.1 cm nodule is present, incompletely assessed on this exam. The right adrenal gland is within normal limits. The kidneys symmetrically enhance without hydronephrosis. A tiny probable left renal cyst is present although this is too small to accurately characterize. There is mild bladder wall thickening. The uterus is surgically absent. Calcifications are associated with the right ovary. There are atherosclerotic changes throughout the vasculature. A small amount of fluid is present dependently in the pelvis posteriorly. There are postsurgical changes along the anterior abdominal and pelvic wall. Postsurgical change at the GE junction and stomach. Limited evaluation of bowel loops due to lack of GI contrast and poor distention. The appendix is not clearly identified in the right lower quadrant. Multiple colonic diverticuli are present. Impression: CHEST: 1. No pulmonary artery embolus. 2. Pulmonary vascular congestion with a small left pleural effusion with compressive atelectasis and/or infiltrate. 3. Healing right rib 10 fracture with callus formation. Subtle sclerosis along the mid sternum with mild cortical irregularity likely reflects a healing fracture. ABDOMEN/PELVIS: 1. Diffuse anasarca throughout the subcutaneous fatty tissue. 2. There is an indeterminate left adrenal gland 3.1 cm nodule. Recommend follow-up MRI adrenal gland protocol when feasible. 3. Small hiatal hernia with postsurgical changes of the stomach and gastroesophageal junction 4. Cholecystectomy with extrahepatic biliary duct distention, correlate with lab values. 5. The pancreatic duct is prominent, correlate with lab values. 6. Additional findings, as above. Report Dictated on Electronically Signed By: Judy Rodriguez MD Electronically Signed Date/Time: 04/08/2023 11:45 PM EST Antimicrobials, Start/End Dates: Vanc P/T Cefazolin 04/11- Impression: E coli bacteremia. Distention of the extrahepatic duct and the common bile duct, of uncertain etiology. Hepatic steatosis. Severe malnutrition (Alb 1.7). Worsening thrombocytopenia. Plan: Pt sick due to sepsis due to E coli bacteremia. Afebrile, hemodynamically ok. Bacteremia was thought to be due to UTI, however, urine cx grew C glabrata. Source could be ascending cholangitis. Leukocytosis resolved. Transaminitis improved. Continue cefazolin. Follow thrombocytopenia. As Dr. Haines's plan she may complete course with PO cephalexin 1g q8h and threat through 04/22 to finish 14 days. Consult coal gasification technician for malnutrition. Total time 50 minutes on this day of encounter includes counseling, coordinating plan of care, record and documentation review before and after visit including documentation and time not explicitly included on EMR time stamp for accounting for open encounter. Images from the original note were not included. GASTROENTEROLOGY PROGRESS NOTE Patient: Christa Stout : 1945 Primary Care Physician: Amalia Cuevas History: Stable, no complaints. MRCP completed, results below. Physical Exam: Gen: AAOx3 in NAD BP (!) 143/86 (BP Location: Right arm, Patient Position: Lying) Pulse 95 Temp 36.7 C (98.1 F) (Temporal) Resp 18 Ht 5' 3 (1.6 m) Wt 180 lb 8 oz (81.9 kg) SpO2 98% BMI 31.97 kg/m HEENT: MMM, sclera anicteric CVS: RRR, s1, s2, no mrg Lungs: CTA B/L, no RRW Abd: Soft, NT/ND, +BS, No guarding/rebound, no HSM, no masses palpated Ext: No C/C/E Neuro: No gross focal deficits Laboratory Data: CBC: Results from last 7 days Lab Units 04/11/23 0532 04/10/23 0233 04/09/23 1115 WBC AUTO 10*3/uL 5.6 10.3 17.3* HEMOGLOBIN g/dL 8.6* 9.2* 11.3* HEMATOCRIT % 25.3* 27.5* 35.0 PLATELETS AUTO 10*3/uL 79* 95* 105* CMP: Recent Labs 04/11/23 0532 04/12/23 0533 NA 136 139 K 3.0* 3.2* CL 112* 114* CO2 19* 21* BUN 10 9 CREATININE 0.92 0.85 GLUCOSE 73 87 CALCIUM 6.4* 6.6* HEPATIC: Results from last 7 days Lab Units 04/12/2353204/11/2332 04/10/23232 ALK PHOS U/L 231* 224* 230* BILIRUBIN TOTAL mg/dL 0.5 0.8 1.2 BILIRUBIN DIRECT mg/dL 0.0 0.0 -- PROTEIN TOTAL g/dL 4.4* 4.0* 4.0* ALT U/L 73* 94* 109* AST U/L 68* 70* 101* Imaging: Exam Date/Time: 04/11/2023 12:15 Procedure: MR ABDOMEN WO CONTRAST Ordering Provider: SOSA JEFFREY Reason For Exam: Dilated bile duct and pancreatic duct MRI ABDOMEN WITHOUT with MRCP EXAM DATE AND TIME: 04/11/2023 12:15 PM EST INDICATION: 78 years Female with Dilated bile duct and pancreatic duct TECHNIQUE: Multiplanar multisequence MR images of the abdomen were performed, including diffusion-weighted images without contrast. Thick section multi-angle and thin section multi-slice MRCP sequences were performed through the abdomen as well. COMPARISON: MRI abdomen from 04/09/2023. CT abdomen pelvis from 04/08/2023. FINDINGS: Lack of intravenous contrast material limits evaluation of the vascular and visceral structures. 3-D MRCP images could not be generated due to scatter air at the end of the exam. DWI imaging also could not be performed. Liver: The liver is normal in size and contour. There is drop in signal on the opposed-phase images consistent with fat deposition. No focal liver lesion. Biliary tree: Status post cholecystectomy. Minimal intrahepatic ductal dilatation. Mild prominence of the common hepatic and common bile ducts, which measure up to 13 mm in diameter. No evidence of choledocholithiasis. No abrupt cut off of the duct. Spleen: Calcified splenic granulomas. Adrenals:Benign left adrenal adenoma, measuring 3.2 cm. Pancreas: Prominence of the main pancreatic duct, which measures up to 9 mm in diameter, within the head of the pancreas. No abrupt cut off of the duct. Diffuse pancreatic parenchymal atrophy. No peripancreatic fluid collection. Colonic diverticulosis. 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 Edematous circumferential wall thickening of the gastric antrum. Postsurgical change of the ventral midline upper abdominal wall. Trace ascites. Kidneys: No hydronephrosis. Hyperintense T2 left renal cortical lesion, measuring 6 mm. This likely represents a tiny cyst. Lymph nodes: No lymphadenopathy. Vasculature: Grossly unremarkable on this noncontrast exam. No significant collaterals or esophageal varices. Visualized Osseous structures: Degenerative change of the spine. IMPRESSION: Abnormal distention of the extrahepatic duct and the common bile duct, of uncertain etiology. No evidence of choledocholithiasis. No definite evidence of an obstructing mass. Consider further evaluation with ERCP. Distal gastritis, involving the excluded portion of the stomach. Trace ascites. Benign left adrenal adenoma. Diffuse hepatic steatosis. Colonic diverticulosis. Assessment: Abnormal LFTs: Continue to trend downward. May have been cholestatic secondary to underlying infection. No obvious obstruction on MRCP. Bile duct dilation may be secondary to cholecystectomy. E. coli bacteremia: Likely urinary source. RLQ pain: No obvious etiology on imaging. Consider musculoskeletal, visceral hypersensitivity. Improving Plan: Monitor LFTs Reviewed MRI with radiology. Some mild pancreatic duct dilation as well. May be consistent with dilated CBD status postcholecystectomy and age-related changes with a component of chronic pancreatitis. Other possibility would be an occult neoplasm. Check GGT. Radiology recommending a repeat MRCP/MRI of the pancreas in 3 months versus an EUS if LFTs remain elevated. Recommend the patient follow-up at [facility] with Dr. Cowart for evaluation and possible outpatient EUS if necessary continue present management (Comment: Please note this report has been produced using speech recognition software and may contain errors related to that system including errors in grammar, punctuation, and spelling, as well as words and phrases that may be inappropriate. If there are any questions or concerns please feel free to contact the dictating provider for clarification.) Electronically signed by Wilder Sosa DO 04/12/2023 1:58 PM Department of Family Medicine Daily Progress Note Subjective Chief Complaint (required for billing): Sepsis (HCC) Pt resting tocay waiting to see what GI thinks of mrcp results ROS: Review of Systems Objective BP 138/81 Pulse 78 Temp 36.8 C (98.3 F) (Temporal) Resp 16 Ht 5' 3 (1.6 m) Wt 180 lb 8 oz (81.9 kg) SpO2 99% BMI 31.97 kg/m Physical Exam Pt is alert and oiriented x 3 Heent wnl Heart regular Lungs ctab Abd benign Ext no edema Labs Notable Labs: Current Medications Medication orders reviewed, see MAR Assessment/Plan Principal Problem: Sepsis (HCC) Sepsis possible urinary source E coli bacteremia Hypotension Lactic acidosis resolved Transaminitis MRCP showed abnormal distention of the CBD ? etiology Anemia Plan Cont iv cefazolin and change to keflex if continues to do well will se what GI feels about MRCP FEN:Adult diet Regular; 4 carb choices (60 gm/meal) GI prophylaxis: NA DVT prophylaxis: lovenox # Anticipated Discharge - Date - -2 d - Location - Skilled Facility - Pending the following - ALYX SHEETS DO 04/12/23 9:02 AM Images from the original note were not included. GASTROENTEROLOGY PROGRESS NOTE Patient: Christa Stout : 1945 Primary Care Physician: Amalia Cuevas History: Stable overnight. No complaints. Tolerating p.o. without difficulty. Denies any abdominal pain, nausea, vomiting, F/C/S Physical Exam: Gen: AAOx3 in NAD BP 111/56 (BP Location: Right arm, Patient Position: Lying) Pulse 71 Temp 36.8 C (98.2 F) (Temporal) Resp 18 Ht 5' 3 (1.6 m) Wt 173 lb (78.5 kg) SpO2 100% BMI 30.65 kg/m HEENT: MMM, sclera anicteric CVS: RRR, s1, s2 Abd: Soft, NT/ND, +BS, No guarding/rebound, Laboratory Data: CBC: Results from last 7 days Lab Units 04/11/23 0532 04/10/23 0233 04/09/23 1115 WBC AUTO 10*3/uL 5.6 10.3 17.3* HEMOGLOBIN g/dL 8.6* 9.2* 11.3* HEMATOCRIT % 25.3* 27.5* 35.0 PLATELETS AUTO 10*3/uL 79* 95* 105* CMP: Recent Labs 04/10/23 0233 04/11/23 0532 NA 134* 136 K 3.0* 3.0* CL 111* 112* CO2 20* 19* BUN 13 10 CREATININE 0.97 0.92 GLUCOSE 172* 73 CALCIUM 6.4* 6.4* HEPATIC: Results from last 7 days Lab Units 04/11/23 0532 04/10/23 0233 04/09/23 1115 ALK PHOS U/L 224* 230* 256* BILIRUBIN TOTAL mg/dL 0.8 1.2 2.5* BILIRUBIN DIRECT mg/dL 0.0 -- -- PROTEIN TOTAL g/dL 4.0* 4.0* 4.4* ALT U/L 94* 109* 135* AST U/L 70* 101* 153* Imaging: MRCP - Pending Assessment: Abnormal LFTs: Continue to trend downward. May have been cholestatic secondary to underlying infection. Rule out any obstructive process. E. coli bacteremia: Likely urinary source. RLQ pain: No obvious etiology on imaging. Consider musculoskeletal, visceral hypersensitivity. Improving Plan: Continue present management Monitor LFTs Follow-up MRCP Consider outpatient liver workup if LFTs remain elevated and MRCP is unremarkable. (Comment: Please note this report has been produced using speech recognition software and may contain errors related to that system including errors in grammar, punctuation, and spelling, as well as words and phrases that may be inappropriate. If there are any questions or concerns please feel free to contact the dictating provider for clarification.) Electronically signed by Wilder Sosa DO 04/11/2023 11:18 AM Department of Family Medicine Daily Progress Note Subjective Chief Complaint (required for billing): Sepsis (HCC) Pt feeling much better today no complaints ROS: Review of Systems Objective BP 111/56 (BP Location: Right arm, Patient Position: Lying) Pulse 71 Temp 36.8 C (98.2 F) (Temporal) Resp 18 Ht 5' 3 (1.6 m) Wt 173 lb (78.5 kg) SpO2 100% BMI 30.65 kg/m Physical Exam Pt is alert and oiriented x 3 Heent wnl Heart regular Lungs ctab Abd benign Ext no edema Labs Notable Labs: K 3.0 Current Medications Medication orders reviewed, see MAR Assessment/Plan Principal Problem: Sepsis (HCC) Sepsis possible urinary source E coli bacteremia Hypotension Lactic acidosis resolved Transaminitis MRCP today Anemia Plan Replace K Cont with current antibiotics Await MRCP FEN:Adult diet Regular; 4 carb choices (60 gm/meal) GI prophylaxis: NA DVT prophylaxis: lovenox # Anticipated Discharge - Date - 2 d - Location - Skilled Facility - Pending the following - ALYX SHEETS DO 04/11/23 9:48 AM Images from the original note were not included. [facility] - Infectious Diseases Attending Progress Note Subjective: Following for e coli bacteremia. Patient without new complaints this morning. Asking if she is going to be stuck again. States she is feeling better overall. Denies fever, chills, cP/SOB. Had some urinary symptoms leading to admit, but is not having dysuria or frequently currently. Denies flank or back pain. No new abdominal pain. No other new exacerbating or alleviating factors. Objective: Vitals: Patient Vitals for the past 24 hrs: BP Temp Temp src Pulse Resp SpO2 Weight 04/11/23 0743 111/56 36.8 C (98.2 F) Temporal 71 18 100 % -- 04/11/23 0700 -- -- -- -- -- -- 78.5 kg (173 lb) 04/11/23 0342 108/63 36.2 C (97.1 F) Temporal 72 17 99 % -- 04/10/23 2350 111/63 36.2 C (97.1 F) Temporal 75 18 100 % -- 04/10/23 1925 (!) 142/69 36.4 C (97.5 F) Temporal 90 18 100 % -- 04/10/23 1559 114/63 36.3 C (97.3 F) Temporal 105 20 97 % -- Physical Exam Vitals and nursing note reviewed. Constitutional: General: She is not in acute distress. Appearance: Normal appearance. She is well-developed. She is obese. She is not ill-appearing. Comments: NAD in bed, interactive, cooperative, conversant. Looks better overall. HENT: Head: Normocephalic and atraumatic. Right Ear: External ear normal. Left Ear: External ear normal. Nose: Nose normal. Mouth/Throat: Mouth: Mucous membranes are moist. Pharynx: Oropharynx is clear. No oropharyngeal exudate. Eyes: General: No scleral icterus. Extraocular Movements: Extraocular movements intact. Conjunctiva/sclera: Conjunctivae normal. Pupils: Pupils are equal, round, and reactive to light. Cardiovascular: Rate and Rhythm: Normal rate and regular rhythm. Pulses: Normal pulses. Heart sounds: Normal heart sounds. No murmur heard. No friction rub. No gallop. Pulmonary: Effort: Pulmonary effort is normal. No respiratory distress. Breath sounds: Normal breath sounds. No stridor. No wheezing, rhonchi or rales. Abdominal: General: Abdomen is flat. There is no distension. Palpations: Abdomen is soft. There is no mass. Tenderness: There is no abdominal tenderness. There is no guarding or rebound. Hernia: No hernia is present. Genitourinary: Comments: No suprapubic or flank pain. Musculoskeletal: General: No swelling or deformity. Normal range of motion. Right lower leg: No edema. Left lower leg: No edema. Skin: General: Skin is warm and dry. Coloration: Skin is not jaundiced. Findings: No rash. Comments: A few very long finger nails. Bruising at R forearm IV site. Neurological: General: No focal deficit present. Mental Status: She is alert and oriented to person, place, and time. Mental status is at baseline. Cranial Nerves: No cranial nerve deficit. Deep Tendon Reflexes: Reflexes normal. Psychiatric: Mood and Affect: Mood normal. Behavior: Behavior normal. Thought Content: Thought content normal. Judgment: Judgment normal. Labs: Recent Labs 04/08/23 2220 04/09/23 1115 04/10/23 0233 04/11/23 0532 NA 133* 136 134* 136 K 3.5 3.5 3.0* 3.0* CL 105 110* 111* 112* CO2 21* 19* 20* 19* BUN 14 13 13 10 CREATININE 1.11* 0.89 0.97 0.92 GLUCOSE 267* 252* 172* 73 CALCIUM 7.2* 6.6* 6.4* 6.4* PROT 4.6* 4.4* 4.0* -- BILITOT 2.7* 2.5* 1.2 -- ALKPHOS 269* 256* 230* -- AST 290* 153* 101* -- ALT 166* 135* 109* -- PROCAL -- 2.38* -- -- Recent Labs 04/08/23221904/09/235 04/10/23 0233 04/11/23 0532 WBC 19.6* 17.3* 10.3 5.6 HGB 11.3* 11.3* 9.2* 8.6* HCT 34.4* 35.0 27.5* 25.3* PLT 134* 105* 95* 79* LYMPHOPCT 4.2* 3.3* -- -- MONOPCT 6.2 6.0 -- -- BASOPCT 0.0 0.3 -- -- NEUTROABS 17.5* 15.6* -- -- 04/08 UA + pyuria. Micro: No results for input(s): COVID19 in the last 72 hours. 04/08 Blood 2/2 E coli, BF E coli Escherichia coli BROTH MICRODILUTION Ampicillin >=32 ug/ml Resistant Ampicillin / Sulbactam 16 ug/ml Intermediate Aztreonam <=1 ug/ml Susceptible Cefazolin <=4 ug/ml Susceptible Cefepime <=1 ug/ml Susceptible Ceftriaxone <=1 ug/ml Susceptible Ciprofloxacin <=0.25 ug/ml Susceptible Gentamicin <=1 ug/ml Susceptible Meropenem <=0.25 ug/ml Susceptible Piperacillin / Tazobactam <=4 ug/ml Susceptible Trimethoprim / Sulfamethoxazole <=20 ug/ml Susceptible 04/08 4 plex (-) 04/09 urine NGTD Lines: PIV Radiography/Echo/Other: 04/09 MRI abd: IMPRESSION: There is a 3.1 cm left adrenal gland mass. 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 04/09 US Abd: IMPRESSION: Fatty liver, otherwise unremarkable ultrasound of the abdomen. 04/08 CT C/A/P: IMPRESSION: CHEST: 1. No pulmonary artery embolus. 2. Pulmonary vascular congestion with a small left pleural effusion with compressive atelectasis and/or infiltrate. 3. Healing right rib 10 fracture with callus formation. Subtle sclerosis along the mid sternum with mild cortical irregularity likely reflects a healing fracture. ABDOMEN/PELVIS: 1. Diffuse anasarca throughout the subcutaneous fatty tissue. 2. There is an indeterminate left adrenal gland 3.1 cm nodule. Recommend follow-up MRI adrenal gland protocol when feasible. 3. Small hiatal hernia with postsurgical changes of the stomach and gastroesophageal junction 4. Cholecystectomy with extrahepatic biliary duct distention, correlate with lab values. 5. The pancreatic duct is prominent, correlate with lab values. 6. Additional findings, as above. Antimicrobials, Start/End Dates: Vanc 04/08- P/T 04/08- Cefazolin 04/11- Impression: E coli bacteremia, likely urinary source LFT elevation Leukocytosis improving ALEXIS resolving Plan: Susceptibilities from E coli are favorable for de-escalation. Source still likely urine, but have not seen urine growth yet. Biliary tree may also be possible given some LFT abnromalities. MRCP pending. Will de-escalate to cefazolin 2g IV q8h. WBC is better. Temps are stable. If continues to improve, may be able to complete course with PO cephalexin 1g q8h and threat through 04/22 to finish 14 days. ID will monitor parameters and see as needed. Based on diagnoses and management, combination of acute and chronic problems, exacerbations and/or acuity, this visit should be considered to be of high complexity. Cornell Haines MD, [facility] [place], [place] Images from the original note were not included. [facility] - Infectious Diseases Attending Progress Note Subjective: Following for sepsis. Patient without new complaints this morning. States she is feeling better overall. Denies fever, chills, cP/SOB. Had some urinary symptoms leading to admit, but is not having dysuria or frequently currently. Denies flank or back pain. No new abdominal pain. No other new exacerbating or alleviating factors. Objective: Vitals: Patient Vitals for the past 24 hrs: BP Temp Temp src Pulse Resp SpO2 Height Weight 04/10/23 0801 115/61 36.3 C (97.3 F) Temporal 89 16 100 % -- -- 04/10/23 0339 -- -- -- -- -- -- -- 79.1 kg (174 lb 6.1 oz) 04/10/23 0328 119/77 36.4 C (97.5 F) Temporal 103 16 99 % -- -- 04/10/23 0024 99/61 36.3 C (97.3 F) Temporal (!) 111 18 99 % -- -- 04/09/23 2219 96/64 36.4 C (97.6 F) Temporal (!) 114 18 100 % -- -- 04/09/23 2030 93/60 36.5 C (97.7 F) Temporal (!) 122 -- 100 % -- -- 04/09/23 1611 114/67 36.8 C (98.2 F) Temporal (!) 134 18 100 % -- -- 04/09/23 1244 -- -- -- -- -- -- 1.6 m (5' 3 ) -- 04/09/23 1126 87/56 36.1 C (97 F) Temporal 96 16 94 % -- -- Physical Exam Vitals and nursing note reviewed. Constitutional: General: She is not in acute distress. Appearance: Normal appearance. She is well-developed. She is obese. She is not ill-appearing. Comments: NAD in bed, interactive, cooperative, conversant. HENT: Head: Normocephalic and atraumatic. Right Ear: External ear normal. Left Ear: External ear normal. Nose: Nose normal. Mouth/Throat: Mouth: Mucous membranes are moist. Pharynx: Oropharynx is clear. No oropharyngeal exudate. Eyes: General: No scleral icterus. Extraocular Movements: Extraocular movements intact. Conjunctiva/sclera: Conjunctivae normal. Pupils: Pupils are equal, round, and reactive to light. Cardiovascular: Rate and Rhythm: Normal rate and regular rhythm. Pulses: Normal pulses. Heart sounds: Normal heart sounds. No murmur heard. No friction rub. No gallop. Pulmonary: Effort: Pulmonary effort is normal. No respiratory distress. Breath sounds: Normal breath sounds. No stridor. No wheezing, rhonchi or rales. Abdominal: General: Abdomen is flat. There is no distension. Palpations: Abdomen is soft. There is no mass. Tenderness: There is no abdominal tenderness. There is no guarding or rebound. Hernia: No hernia is present. Genitourinary: Comments: No suprapubic or flank pain. Musculoskeletal: General: No swelling or deformity. Normal range of motion. Right lower leg: No edema. Left lower leg: No edema. Skin: General: Skin is warm and dry. Coloration: Skin is not jaundiced. Findings: No rash. Comments: A few very long finger nails. Neurological: General: No focal deficit present. Mental Status: She is alert and oriented to person, place, and time. Mental status is at baseline. Cranial Nerves: No cranial nerve deficit. Deep Tendon Reflexes: Reflexes normal. Psychiatric: Mood and Affect: Mood normal. Behavior: Behavior normal. Thought Content: Thought content normal. Judgment: Judgment normal. Labs: Recent Labs 04/08/23221904/09/23111404/10/23 0233 NA 133* 136 134* K 3.5 3.5 3.0* CL 105 110* 111* CO2 21* 19* 20* BUN 14 13 13 CREATININE 1.11* 0.89 0.97 GLUCOSE 267* 252* 172* CALCIUM 7.2* 6.6* 6.4* PROT 4.6* 4.4* 4.0* BILITOT 2.7* 2.5* 1.2 ALKPHOS 269* 256* 230* AST 290* 153* 101* ALT 166* 135* 109* PROCAL -- 2.38* -- Recent Labs 04/08/23221904/09/23111404/10/23 0233 WBC 19.6* 17.3* 10.3 HGB 11.3* 11.3* 9.2* HCT 34.4* 35.0 27.5* PLT 134* 105* 95* LYMPHOPCT 4.2* 3.3* -- MONOPCT 6.2 6.0 -- BASOPCT 0.0 0.3 -- NEUTROABS 17.5* 15.6* -- 04/08 UA + pyuria. Micro: No results for input(s): COVID19 in the last 72 hours. 04/08 Blood 2/2 E coli, BF E coli 04/08 4 plex (-) 04/08 urine NGTD Lines: PIV Radiography/Echo/Other: 04/09 MRI abd: IMPRESSION: There is a 3.1 cm left adrenal gland mass. 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 04/09 US Abd: IMPRESSION: Fatty liver, otherwise unremarkable ultrasound of the abdomen. 04/08 CT C/A/P: IMPRESSION: CHEST: 1. No pulmonary artery embolus. 2. Pulmonary vascular congestion with a small left pleural effusion with compressive atelectasis and/or infiltrate. 3. Healing right rib 10 fracture with callus formation. Subtle sclerosis along the mid sternum with mild cortical irregularity likely reflects a healing fracture. ABDOMEN/PELVIS: 1. Diffuse anasarca throughout the subcutaneous fatty tissue. 2. There is an indeterminate left adrenal gland 3.1 cm nodule. Recommend follow-up MRI adrenal gland protocol when feasible. 3. Small hiatal hernia with postsurgical changes of the stomach and gastroesophageal junction 4. Cholecystectomy with extrahepatic biliary duct distention, correlate with lab values. 5. The pancreatic duct is prominent, correlate with lab values. 6. Additional findings, as above. Antimicrobials, Start/End Dates: Vanc 04/08- P/T 04/08- Impression: E coli bacteremia, likely urinary source LFT elevation Leukocytosis improving ALEXIS resolving Plan: Maintain pip-bri for now. Can stop vancomycin. E coli most likely of urinary source given the symptoms she describes, but LFT abnormalities and imaging suggest potential biliary source. If continues to improve, likely transition to PO. Maintain pip-bri pending susceptibilities to lessen potential drug changes. ID will continue to monitor parameters through weekend and see as needed. Based on diagnoses and management, combination of acute and chronic problems, exacerbations and/or acuity, this visit should be considered to be of high complexity. Cornell Haines MD, [facility] [place], [place] Department of Family Medicine Daily Progress Note Subjective Chief Complaint (required for billing): Sepsis (HCC) Pt doing a little better this am she is positive for E coli bacteremia likely urine ROS: Review of Systems Objective BP 115/61 (BP Location: Right arm, Patient Position: Lying) Pulse 89 Temp 36.3 C (97.3 F) (Temporal) Resp 16 Ht 5' 3 (1.6 m) Wt 174 lb 6.1 oz (79.1 kg) SpO2 100% BMI 30.89 kg/m Physical Exam Pt is alert and oiriented x 3 Heent wnl Heart regular Lungs ctab Abd benign Ext no edema Labs Notable Labs: Current Medications Medication orders reviewed, see MAR Assessment/Plan Principal Problem: Sepsis (HCC) Sepsis possible urinary source Hypotension Lactic acidosis resolved Transaminitis Anemia Plan Await final cultures Cont zosyn and vanco for now Await GI consult for elevated LFTs FEN:Adult diet Regular; 4 carb choices (60 gm/meal) GI prophylaxis: NA DVT prophylaxis: lovenox # Anticipated Discharge - Date - 2 d - Location - Skilled Facility - Pending the following - ALYX SHEETS DO 04/10/23 9:33 AM Request made to ELECTRONIC TRAIN CONTROL TECHNICIAN nurse to draw lactic . This nurse made 2 attempts. Nutrition Assessment Type and Reason for Visit: Initial, Positive Nutrition Screen Nutrition Recommendations/Plan: Per MNT protocol, will add 60 gm CHO controlled diet. Monitor %PO intakes and need for ONS. If intakes are compromised, suggest Ensure HP ONS. Pt is receiving assistance with meal tray orders. Obtain recent weight/intake hx as able. RD to follow and monitor overall nutritional status. Malnutrition Assessment: Malnutrition Status: Insufficient data Nutrition Assessment: Pt with PMH of breast cancer (s/p BL mastectomy w/reoccurrence L chest s/p resection), cerebral artery occlusion, depression, DM, DVT, GERD, HLD, HTN, osteoporosis admitted from SNF with concern for hypotension and hyperglycemia in the 400s. CT with extrahepatic biliary duct dilation. Pt is a + RN screen for weight loss. Unable to find much data in EMR aside from weight of 180# from 02/23/21. RD unable to interview pt this date- receiving pt care at time of visit. Will start CHO controlled diet to promote better BGT. Estimated Daily Nutrient Needs: Energy Requirements Based On: Kcal/kg Weight Used for Energy Requirements: [place] Weight for Energy Calculation (kg): 52 kg Total Energy Requirements (kcals/day): 9347-0649 Weight Used for Protein Requirements: [place] Weight in Kg Used for Protein Requirements: 52 kg Estimated Total Protein (g/day): 60-70 Estimated Daily Total Fluid (ml/day): Nutrition Related Findings: A&Ox4; missing teeth; dentures; generalized edema; [place] 17; BLE weakness Wound Type: None Current Nutrition Therapies: Adult diet Regular; 4 carb choices (60 gm/meal) Current Oral Intake Average Meal Intake: Unable to assess Average Supplements Intake: None Ordered Anthropometric Measures: Height: 160 cm (5' 3 ) Current Body Weight: 75.8 kg (167 lb) Usual Body Weight: 81.6 kg (180 lb) % Weight Change (Calculated): -7.2 [place] Body Weight (lbs) (Calculated): 115 lbs [place] Body Weight (Kg) (Calculated): 52 kg % [place] Body Weight (Calculated): 145.2 % BMI (kg/m2) (Calculated): 29.6 BMI Categories: Overweight (BMI 25.0-29.9) Nutrition Diagnosis: Altered nutrition-related lab values related to cardiac dysfunction, endocrine dysfuntion as evidenced by lab values Nutrition Interventions: Nutrition Education/Counseling: No recommendation at this time Coordination of Nutrition Care: Continue to monitor while inpatient Plan of Care discussed with: pt Goals: Goals: Meet at least 75% of estimated needs Nutrition Monitoring and Evaluation: Food/Nutrient Intake Outcomes: Diet Advancement/Tolerance, Food and Nutrient Intake, Supplement Intake Physical Signs/Symptoms Outcomes: Biochemical Data, GI Status, Fluid Status or Edema, Nutrition Focused Physical Findings, Skin, Weight, Hemodynamic Status Discharge Planning: Too soon to determine Ashlee Brown RD Contact: [phone] Images from the original note were not included. PHYSICAL THERAPY [facility] Initial Evaluation Name/MRN: Christa Stout ([id number]) Evaluation Date: 04/09/2023 Date of : 1945 Admission Date: 04/08/2023 9:44 PM Age: 78 y.o. Room[facility]Bed: [facility] A Discharge Recommendation: ECF with PT Equipment Needed: No Assessment IMPRESSION: Pt admitted 04/08 with hypotension from ECF. She was recently diagnosed with DVT, CTA (-) for PE. At baseline stand-pivots to wheelchair at [facility], does not propel herself. She reports sometimes can do it IND, othertimes needs assist. She demo bed mobility mod A, transfer to W max x1. She would benefit from PT when return to ECF Diagnosis: hypotension Prognosis: good Performance Deficits /Impairments: Decreased Functional Mobility, Decreased Strength, Decreased Safety Awareness, Decreased Endurance, and Decreased Balance Decision Making: Medium Complexity Subjective Per RN pt okay for therapy, is pleasant and agree to PT Pain: Pt denies any current pain. Past Medical History: Past Medical History: Diagnosis Date Breast CA (HCC) Cerebral artery occlusion with cerebral infarction (HCC) Depression Diabetes mellitus (HCC) DVT (deep venous thrombosis) (HCC) GERD (gastroesophageal reflux disease) Hyperlipidemia Hypertension Muscle weakness-general Osteoporosis UTI (urinary tract infection) Past Surgical History: Past Surgical History: Procedure Laterality Date APPENDECTOMY BREAST LUMPECTOMY Left CHOLECYSTECTOMY GASTRIC BYPASS MASTECTOMY TONSILLECTOMY AND ADENOIDECTOMY (HISTORICAL) TOTAL ABDOMINAL HYSTERECTOMY Admission Diagnosis: Patient Active Problem List Diagnosis Date Noted GERD (gastroesophageal reflux disease) 06/09/2018 Hyperlipidemia 06/09/2018 Depression 06/09/2018 Diabetes mellitus (HCC) 06/09/2018 Sepsis (HCC) 04/08/2023 Hypotension 06/07/2018 Near syncope 06/07/2018 Medical Precautions: No active isolations Proper PPE donned/doffed in accordance with facility standards. Fall Risk: Mills Fall Risk Score: 60 (High Risk) Precautions/Restrictions: N/A Family/Caregiver Present: none Overall Cognitive Status: Exceptions - Following commands: follows multi-step commands consistently - Safety judgement: decreased awareness of need for safety - Problem solving: assistance required to generate solutions, assistance required to implement solutions, assistance required to identify errors made, assistance required to correct errors made, and decreased awareness of errors - Initiation: requires cues for some - Sequencing: requires cues for some Overall Orientation Status: Oriented x4 Vision: no visual deficits Hearing: normal Social/Functional History Patient admitted from SNF. Assistive Equipment: wheelchair - manual Prior Level of Function ADL Assistance: Needs Assist Ambulation Assistance: Non-Ambulatory Transfer Assistance: reports sometimes IND, other times needs assist Objective Lower Extremity Assessment AROM: WFL PROM: Not assessed this session Strength: Exceptions: grossly decreased Bed Mobility: Supine to sit: Mod Assist, Pt demo bed mobility mod A to manage trunk to EOB. She sits with CGA. She return to supine with mod A to manage BLE Sit to supine: Mod Assist Transfers Sit to stand: Max Assist, Pt complete transfer to FWW with max x1. Therapist cues pt for hand and foot placement, she stands ~10 sec with retro lean, demo increased fatigue. She return to sit with max x1 to control eccentric lower Stand to sit: Max Assist Ambulation Did not assess this session. Outcome Measures AM-PAC How much HELP from another person do you currently need Turning from your back to your side while in a flat bed without using bedrails?: A Little Moving from lying on your back to sitting on the side of a flat bed without using bedrails?: A Lot Moving to and from a bed to a chair (including a wheelchair)?: A Lot Standing up from a chair using your arms (wheelchair or bedside chair)?: A Lot Walking in a hospital room?: Total Stair climbing assessed?: No AM-PAC Inpatient Mobility Raw Score (No Stairs) : 10 [facility] Plan Pt would benefit from skilled acute PT services to address Strengthening, Balance Training, Functional Mobility Training, Endurance Training, Wheelchair Mobility Training, Pain Management, Safety Education and Training, Patient/Caregiver Training, Equipment Evaluation/Education, and Positioning. Frequency: 5 visits during current hospital admission or until additional recommendations are made Barriers: None Safety/Education Safety Safety Devices in place: All fall risk precautions in place, call light within reach, left in bed, gait belt, patient at risk for falls, and nurse notified Restraints: No Education Education Given To: patient Education Provided: PT Role, PT Goals, Plan of Care, Precautions, Transfer Training, Energy Conservation, Equipment, Fall Prevention Education, Discharge Recommendations, and Benefits of Increasing Activity Education Method: Verbal and Demonstration Barriers to Learning: None Education Outcome: Verbalized Understanding, Demonstrated Understanding, and Continued Education Needed Goals Patient Stated Goal: None stated Encounter Problems Encounter Problems (Active) Exercise Patient will complete lower extremity exercises for 1-2 sets / 5-10 reps in order to improve strength and activity tolerance for mobility. Start: 04/09/23 Expected End: 04/16/23 Mobility Transfers Patient will perform bed mobility with SBA in order to improve independence and prepare for out of bed mobility. Start: 04/09/23 Expected End: 04/16/23 Patient will complete functional transfer bed>w/c with least restrictive device with min assist in order to prepare for ambulation. Start: 04/09/23 Expected End: 04/16/23 Patient will complete sit to stand transfer with min assist to LRAD in order to improve safety and prepare for out of bed mobility. Start: 04/09/23 Expected End: 04/16/23 Therapy Time Individual Co-treatment Time In 1318 Time Out 1330 Minutes 12 Jerod Kumar PT Patient's Physical Therapy Plan of Care supervision is transferred to a [facility] Therapy Services Physical Therapist. Goals and/or treatment plan was established in collaboration with patient/family/other representatives. 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 Random: 12.8 mcg/ml drawn 04/09 at 1115 Calculated AUC: 439 mg/L.hr Assessment/Plan: Calculated AUC is 439 mg/L.hr. Will continue dose and continue to follow. Images from the original note were not included. OCCUPATIONAL THERAPY [facility] Initial Evaluation Name/MRN: Christa Stout ([id number]) Evaluation Date: 04/10/2023 Date of : 1945 Admission Date: 04/08/2023 9:44 PM Age: 78 y.o. Room/Bed: B2-251/B2-251 A Discharge Recommendation: ECF with OT Equipment Needed: No (TBD at next level of care) Assessment IMPRESSION: Pt admitted 04/08 with hypotension from ECF. Pt found to have pleural effusion and sepsis. Pt requires assist with some ADLs at baseline and completed SPT with one person assist to w/c. At time of eval, pt is min-total A with ADLs and mod A for bed mobility. Pt attempting to complete transfer, however unsuccessful d/t weakness despite max A. Pt is limited by weakness, balance deficits, and poor activity tolerance. Pt is functioning below baseline and would benefit from skilled OT services to maximize safety and independence with ADLs and functional mobility. Rec return to SNF with OT. Performance Deficits /Impairments: Decreased Functional Mobility, Decreased ADL status, Decreased Strength, Decreased Endurance, and Decreased Balance Prognosis: Fair Decision Making: Medium Complexity Subjective Pt supine in bed at arrival. Pt ok to see per RN. PIV, and tele in tact. Pt was pleasant and agreeable to OT eval. Pain: Pt denies any current pain. Past Medical History: Past Medical History: Diagnosis Date Breast CA (HCC) Cerebral artery occlusion with cerebral infarction (HCC) Depression Diabetes mellitus (HCC) DVT (deep venous thrombosis) (HCC) GERD (gastroesophageal reflux disease) Hyperlipidemia Hypertension Muscle weakness-general Osteoporosis UTI (urinary tract infection) Past Surgical History: Past Surgical History: Procedure Laterality Date APPENDECTOMY BREAST LUMPECTOMY Left CHOLECYSTECTOMY GASTRIC BYPASS MASTECTOMY TONSILLECTOMY AND ADENOIDECTOMY (HISTORICAL) TOTAL ABDOMINAL HYSTERECTOMY Admission Diagnosis: Patient Active Problem List Diagnosis Date Noted GERD (gastroesophageal reflux disease) 06/09/2018 Hyperlipidemia 06/09/2018 Depression 06/09/2018 Diabetes mellitus (HCC) 06/09/2018 Sepsis (HCC) 04/08/2023 Hypotension 06/07/2018 Near syncope 06/07/2018 Medical Precautions: No active isolations Proper PPE donned/doffed in accordance with facility standards. Fall Risk: [place] Fall Risk Score: 60 (High Risk) Precautions/Restrictions: N/A Family/Caregiver Present: none Overall Cognitive Status: Exceptions - Problem solving: assistance required to generate solutions, assistance required to implement solutions, assistance required to identify errors made, assistance required to correct errors made, and decreased awareness of errors - Insights: decreased awareness of deficits - Initiation: requires cues for some - Sequencing: requires cues for some Overall Orientation Status: Oriented x4 Social/Functional History Patient admitted from SNF. Assistive Equipment: wheelchair - manual Prior Level of Function ADL Assistance: Needs Assist Ambulation Assistance: Non-Ambulatory Transfer Assistance: Needs Assist Objective ADLs No formal ADLs completed this date d/t weakness and fatigue. Pt anticipated to require SBA-min A with UB ADLs, max-total A with LB ADLs, and max A with bed level toileting evidenced by weakness, balance deficits, and inability to transfer. Upper Extremity Assessment AROM: WFL PROM: WFL Strength: Exceptions: generalized weakness Vision: no visual deficits Hearing: normal Bed Mobility Supine to sit: Mod Assist Sit to supine: Mod Assist Rolling to right: Mod Assist Rolling to left: Mod Assist Scooting: Min Assist HOB slightly elevated and use of bed rails with cues. Pt required mod A for trunk elevation to sitting and BLE mgmt returning to supine. Denies dizziness. Pt required assist with BLE mgmt returning to supine. Pt required mod A and verbal cues for initiation and sequencing with rolling and min A and verbal cues to scoot towards EOB Transfers/Functional Mobility Sit to stand: Pt attempting to stand from bed to fww with max A however unable to achieve any clearance. Pt with increased weakness and fatigue. Sitting balance: SBA Device(s) used: front wheeled walker AM-PAC Plan Pt would benefit from skilled acute OT services to address Strengthening, Balance Training, Functional Mobility Training, Endurance Training, Pain Management, Safety Education and Training, Patient/Caregiver Training, Equipment Evaluation/Education, Positioning, Self-Care/ADL Training, and Cognitive/Perceptual Training. Frequency: 7 visits during current hospital admission or until additional recommendations are made Barriers: Decreased endurance, Upper extremity weakness, and Lower extremity weakness Prognosis: fair Safety/Education Safety Safety Devices in place: All fall risk precautions in place, call light within reach, left in bed, gait belt, patient at risk for falls, nurse notified, and no alarms engaged upon entry Restraints: N/A Education Education Given To: patient Education Provided: OT Role, Plan of Care, Transfer Training, Equipment, Fall Prevention Education, and Discharge Recommendations Education Method: Verbal Barriers to Learning: None Education Outcome: Verbalized Understanding and Continued Education Needed Goals Patient Stated Goal: none stated Encounter Problems Encounter Problems (Active) Dressing Upper Extremities Patient will complete upper body dressing with SBA Start: 04/09/23 Expected End: 04/16/23 Dressings Lower Extremities Patient will dress lower body with mod A Start: 04/09/23 Expected End: 04/16/23 Toileting Patient will complete toileting tasks at bedside commode with min assist. Start: 04/09/23 Expected End: 04/16/23 Transfers Patient will complete functional transfer with least restrictive device with min assist in order to prepare for ambulation. Start: 04/09/23 Expected End: 04/16/23 Patient will perform bed mobility with SBA in order to improve independence and prepare for out of bed mobility. Start: 04/09/23 Expected End: 04/16/23 Therapy Time Individual Co-treatment Time In Time Out Minutes Toma Paula OT Patient's Occupational Therapy Plan of Care supervision is transferred to a [facility] Therapy Services Occupational Therapist. Goals and/or treatment plan was established in collaboration with patient/family/other representatives. documented in this encounter [facility] 04-13-2023 Note Care Management Prog ress Note Patient with discharge orders placed. [facility], to [facility] discharge paperwork to [facility]. Secure message sent to to arrange transportation, notify family and facility. Discharge Milestones and Delays Expected Date/Time: 04/13/2023 Midday Disposition: Custodial Facility Transport status: No current request Discharge Milestones Completed Place discharge order Complete med reconciliation Case mgmt discharge readiness Expected Discharge History Expected Date/Time Set By Reviewed At 04/13/2023 Midday Alyx Sheets DO 04/13/2023 9:12 AM 04/13/2023 Trudi Hutchison RN 04/13/2023 8:36 AM 04/13/2023 Trudi Hutchison RN 04/12/2023 12:02 PM 04/12/2023 Trudi Hutchison RN 04/12/2023 8:12 AM 04/11/2023 Trudi Hutchison RN 04/09/2023 8:14 AM 04/11/2023 Alyx Sheets, DO 04/09/2023 12:56 AM 04/11/2023 Alyx Sheets, DO 04/08/2023 11:32 PM Length of Stay (Days): 5 GMLOS: No GMLOS Documented [facility] 04-13-2023 Note Formatting of this n ote might be different from the original. Dc to [facility] this afternoon at 3:00. [facility] to transport. [facility] message sent to the facility to notify them of the dc time. Discussed dc arrangements and the black pickler time with patients sloan Sarabia. Report number provided to the bedside nurse. [facility] 04-13-2023 Note Formatting of this n ote might be different from the original. Dc to [facility] this afternoon at 3:00. [facility] to transport. [facility] message sent to the facility to notify them of the dc time. Discussed dc arrangements and the black pickler time with patients sloan Sarabia. Report number provided to the bedside nurse. [facility] 04-13-2023 Miscellaneous Notes Dc to [facility] this afternoon at 3:00. [facility] to transport. [facility] message sent to the facility to notify them of the dc time. Discussed dc arrangements and the black pickler time with patients sloan Sarabia. Report number provided to the bedside nurse. Discharge med list transmitted to return back to [facility] via [facility] per TCC request. Images from the original note were not included. Care Management Progress Note Patient with discharge orders placed. [facility] tasked, via [email or web address], to send discharge paperwork to [facility]. Secure message sent to to arrange transportation, notify family and facility. Discharge Milestones and Delays Expected Date/Time: 04/13/2023 Midday Disposition: Custodial Facility Transport status: No current request Discharge Milestones Completed Place discharge order Complete med reconciliation Case mgmt discharge readiness Expected Discharge History Expected Date/Time Set By Reviewed At 04/13/2023 Midday Alyx Sheets DO 04/13/2023 9:12 AM 04/13/2023 Trudi Hutchiosn RN 04/13/2023 8:36 AM 04/13/2023 Trudi Hutchison RN 04/12/2023 12:02 PM 04/12/2023 Trudi Hutchison RN 04/12/2023 8:12 AM 04/11/2023 Trudi Hutchison RN 04/09/2023 8:14 AM 04/11/2023 Alyx Sheets DO 04/09/2023 12:56 AM 04/11/2023 Alyx Sheets DO 04/08/2023 11:32 PM Length of Stay (Days): 5 GMLOS: No GMLOS Documented Images from the original note were not included. Care Management Progress Note TRANSITIONAL CARE DAILY NOTE/UPDATES: Patient remains on 2E due to sepsis. Clinical updates: Patient on IV antibiotics. Potassium low at 3.2. GI and ID following. Discharge plan: back to [facility] when medically stable. Son had called and left , returned call gave update that patient still on IV antibiotics, no plans of dc today. Possibly tomorrow. Discharge obstacles: none noted. TCC to continue to follow. Discharge Milestones and Delays Expected Date/Time: 04/13/[address] discharge order Complete med reconciliation Case mgmt discharge readiness Clinical Stability Diagnsotic Workup Expected Discharge History Expected Date/Time Set By Reviewed At 04/13/2023 Trudi Hutchison RN 04/12/2023 12:02 PM 04/12/2023 Trudi Hutchison RN 04/12/2023 8:12 AM 04/11/2023 Trudi Hutchison RN 04/09/2023 8:14 AM 04/11/2023 Alyx Sheets, DO 04/09/2023 12:56 AM 04/11/2023 Alyx Sheets, DO 04/08/2023 11:32 PM Length of Stay (Days): 4 GMLOS: No GMLOS Documented DC plan Return to [facility]- [facility]- no auth needed. Messaged Dr Sheets to update on the above and inquire if pt planned for dc either today vs tomorrow. Received message back from Dr. Sheets- no plans for weekend dc- pt septic and awaiting culture results. TCC will continue to follow for add'l needs for dc. The patient is Moderately Stable - Low risk of patient condition declining or worsening The patient's goals for the shift include feel better The clinical goals for the shift include resolve hypotension O Weekend dc form ( ambulance form) placed on the chart in the event patient is ready for dc this weekend to [facility]. Care Managment Initial Assessment Date: 04/09/2023 Patient Name: Christa Stout : 1945 Patient Information Source of Information: Patient Safety And Occupational Health Manager Name/Contact Information: Cornell Stout (Child) [phone] Cognition/Language: Confused at baseline Permission given to speak with patient regional sales representative/caregiver as indicated: Confirmation of Payer with patient/family: Yes Payer Name: [employer] Medicaid [place]: No Confirmation of Primary Care Physician: Confirmed PCP Name: Amalia Cuevas Seen in last 2 years?: Yes Primary Caregiver: Other (Comment) (F staff) If assistance needed, confirmed caregiver ready, willing and able to care for patient at discharge: Confirmed with: Living Arrangements Current Residence: Number of Floors Number of Entry Steps: Bed/Bath Levels: Facility: [facility] Facility Name: [facility] Plan to Return: Yes Lives with: Other (Comment) Support Systems: Children Activities of Daily Living Ambulation: Total Care Bathing/Dressing: Total Care Elimination/Continence/Toileting: Total Care Feeding: Independent Who Assists with Activities of Daily Living: ECF staff Instrumental Activities of Daily Living Prescription Coverage: Yes Pharmacy Used: Pharmacy via [facility] Medication Management: Assistance Type: Dose packaging system Who assists with medication securing and setup?: ECF staff Transportation/Shopping: Transportation Mode: Needs Assistance with Transportation at Discharge: No Meal Preparation: Assistance Provider Meal Prep Assistance Provider Name: ECF staff Laundry/Cleaning: Assistance Provider Laundry/Cleaning Assistance Provider Name: [facility] staff Finances/Bill Paying: Assistance Provider Finances/Bill Payer Assistance Provider Name: [facility] Communication: Independent Types of Care Services/Equipment Utilized Care Services: Dialysis Type: NA Durable Medical Equipment: Wheelchair (standard or power) Patient's Goal/Discharge Plan Patient expects to be discharged to: [facility] Discharge Planning Actions: Continue to follow Patient's Choice Rights and [employer] and Collaborative Relationships Disclosed as Indicated for Post-Acute Care: Interdisciplinary Team Engagement: Social Work Referral for: Additional Information: Spoke with patient at bedside and son, Cornell via phone. Introduced self and role. Discharge planning needs discussed. Patient in hospital due to sepsis. Patient on 2 IV antibiotics, positive blood cultures. WBC elevated. ID consulted. Per son, patient resident at [facility] for about 5 years. Task sent to [facility] via Careport to place return referral to above facility. Patient is a bed hold, will not needs auth, will need a Covid test day of discharge. TCC will continue to follow. Trudi Hutchison RN Referral placed to return back [facility] request. Await review and response regarding ability to accept. TCC notified. The patient is Moderately Unstable - Medium risk of patient condition declining or worsening The patient's goals for the shift include feel better The clinical goals for the shift include resolve hypotension Over the shift, the patient did not make progress toward the following goals. Barriers to progression include infection. Recommendations to address these barriers include antibiotics. Problem: Knowledge Deficit Goal: Patient/family/caregiver demonstrates understanding of disease process, treatment plan, medications, and discharge instructions Outcome: Progressing Flowsheets (Taken 04/09/2023 0306) Patient/family/caregiver demonstrates understanding of disease process, treatment plan, medications, and discharge instructions: Provide teaching at level of understanding Problem: Potential for Compromised Skin Integrity Goal: Skin Integrity is Maintained or Improved Outcome: Progressing The patient is Moderately Unstable - Medium risk of patient condition declining or worsening The patient's goals for the shift include feel better The clinical goals for the shift include resolve hypotension documented in this encounter [facility] 04-13-2023 Hospital Discharge instructions Tiffanie Massey RN - 04/13/2023 10:36 AM EST With assistance Tiffanie Massey RN - 04/13/2023 10:34 AM EST Carb control: 4 carb choices (60gm/meal) Tiffanie Massey RN - 04/13/2023 9:11 AM EST Continuity of Care Form Patient Name: Christa Stout : 1945 Admit date: 04/08/2023 Discharge date: 04/13/2023 Code Status Order: Full Code Advance Directives: N Admitting Physician: Alyx Sheets DO PCP: Amalia Cuevas Discharging Nurse: Tiffanie KEBEDE 2E Discharging Hospital Unit/Room#: B2-251/B2-251 A Discharging Unit Emergency Contact: Extended Emergency Contact Information Primary Emergency Contact: Cornell Stout [place] Relation: Child Past Surgical History: Past Surgical History: Procedure Laterality Date APPENDECTOMY BREAST LUMPECTOMY Left CHOLECYSTECTOMY GASTRIC BYPASS MASTECTOMY TONSILLECTOMY AND ADENOIDECTOMY (HISTORICAL) TOTAL ABDOMINAL HYSTERECTOMY Immunization History: Immunization History Administered Date(s) Administered Covid-19, Pfizer Bivalent Booster, (Age 12y+), Im, 30 Mcg/0e 02/06/2022 Covid-19, Pfizer Farris Top, Do Not Dilute, (Age 12 Y+), Im, L 08/21/2021 Influenza, High Dose Seasonal, Preservative Free 01/31/2018 Pfizer SARS-CoV-2 Vaccination 05/08/2020, 05/29/2020, 02/20/2021 Pneumococcal Conjugate PCV 13 05/03/2015 Active Problems: Medical Problems Problem List * (Principal) Sepsis (HCC) GERD (gastroesophageal reflux disease) Hyperlipidemia Depression Diabetes mellitus (HCC) Hypotension Near syncope Isolation/Infection: No active isolations No active infections Nurse Assessment: Last Vital Signs: BP 135/82 (BP Location: Right arm, Patient Position: Sitting) Pulse 95 Temp 36.7 C (98.1 F) (Temporal) Resp 16 Ht 5' 3 (1.6 m) Wt 182 lb 12.8 oz (82.9 kg) SpO2 96% BMI 32.38 kg/m Last documented pain score (0-10 scale): Last Weight: Wt Readings from Last 1 Encounters: 04/13/23 182 lb 12.8 oz (82.9 kg) Mental Status: JOANNE Patient Mental Status: oriented, alert, and flat affect IV Access: JOANNE IV Access: None Nursing Mobility/ADLs: Walking Total assistance Transfer Total assistance Bathing Total assistance Dressing Total assistance Toileting Total assistance Feeding Minimal assistance Sack Filler Minimal assistance Med Delivery yes Wound Care Documentation and Therapy: Elimination: Continence: Bowel: yes Bladder: no Urinary Catheter: None Colostomy/Ileostomy/Ileal Conduit: None Date of Last BM: N/A Intake/Output Summary (Last 24 hours) at 04/13/2023 0910 Last data filed at 04/13/2023 0305 Gross per 24 hour Intake 100 ml Output 2300 ml Net -2200 ml I/O last 3 completed shifts: In: 490 (5.9 mL/kg) [P.O.:440; IV Piggyback:50] Out: 2300 (27.7 mL/kg) [Urine:2300 (0.8 mL/kg/hr)] Weight: 82.9 kg Safety Concerns: at risk for falls Impairments/Disabilities: none Nutrition Therapy: Current Nutrition Therapy: Oral diet: carb control 4 carbs/meal (1800kcals/day) Routes of Feeding: oral Liquids: thin liquids Daily Fluid Restriction: no Last Modified Barium Swallow with Video (Video Swallowing Test): not done Treatments at the Time of Hospital Discharge: Respiratory Treatments: N/A Oxygen Therapy: is not on home oxygen therapy. Ventilator: No ventilator support Rehab Therapies: physical therapy, occupational therapy, and nursing Weight Bearing Status/Restrictions: no restriction Other Medical Equipment (for information only, NOT a DME order): none Other Treatments: N/A Patient's personal belongings (please select all that are sent with patient): glasses and dentures upper and lower RN SIGNATURE: MANAGEMENT/SOCIAL WORK SECTION Inpatient Status Date: 04/08/2023 Readmission Risk Assessment Score: @[email or web address]@ Discharging to Facility/ Agency Name: [facility] Address: [place] [address] Phone: Fax: Dialysis Facility (if applicable) Name: Address: Dialysis Schedule: Phone: Fax: Warehouse Shipping Supervisor/Technical Rep signature: ICIAN SECTION Prognosis: good Condition at Discharge: stable Rehab Potential (if transferring to Rehab): fair Recommended Labs or Other Treatments After Discharge: none Physician Certification: I certify the above information and transfer of Christa Stout is necessary for the continuing treatment of the diagnosis listed and that she requires correction facility for greater than 30 days. Update Admission H&P: No change in H&P PHYSICIAN SIGNATURE: documented in this encounter [facility] 04-13-2023 Note Formatting of this n ote might be different from the original. Discharge med list transmitted to return back to [facility] via [facility] per TCC request. [facility] 04-13-2023 Note Formatting of this n ote might be different from the original. Discharge med list transmitted to return back to [facility] via [facility] per TCC request. [facility] 04-13-2023 Note Formatting of this n ote is different from the original. Images from the original note were not included. Care Management Progress Note Patient with discharge orders placed. [facility] tasked, via [facility], to send discharge paperwork to [facility]. Secure message sent to to arrange transportation, notify family and facility. Discharge Milestones and Delays Expected Date/Time: 04/13/2023 Midday Disposition: Custodial Facility Transport status: No current request Discharge Milestones Completed Place discharge order Complete med reconciliation Case mgmt discharge readiness Expected Discharge History Expected Date/Time Set By Reviewed At 04/13/2023 Midday Alyx Sheets DO 04/13/2023 9:12 AM 04/13/2023 Trudi Hutchison RN 04/13/2023 8:36 AM 04/13/2023 Trudi Hutchison RN 04/12/2023 12:02 PM 04/12/2023 Trudi Hutchison RN 04/12/2023 8:12 AM 04/11/2023 Trudi Hutchison RN 04/09/2023 8:14 AM 04/11/2023 Alyx Sheets DO 04/09/2023 12:56 AM 04/11/2023 Alyx Sheets DO 04/08/2023 11:32 PM Length of Stay (Days): 5 GMLOS: No GMLOS Documented [facility] 04-13-2023 Note Formatting of this n ote is different from the original. Images from the original note were not included. Care Management Progress Note Patient with discharge orders placed. [facility] tasked, via [email or web address], to send discharge paperwork to [facility]. Secure message sent to to arrange transportation, notify family and facility. Discharge Milestones and Delays Expected Date/Time: 04/13/2023 Midday Disposition: Custodial Facility Transport status: No current request Discharge Milestones Completed Place discharge order Complete med reconciliation Case mgmt discharge readiness Expected Discharge History Expected Date/Time Set By Reviewed At 04/13/2023 Midday Alyx Sheets DO 04/13/2023 9:12 AM 04/13/2023 Trudi Hutchison RN 04/13/2023 8:36 AM 04/13/2023 Trudi Hutchison RN 04/12/2023 12:02 PM 04/12/2023 Trudi Hutchison RN 04/12/2023 8:12 AM 04/11/2023 Trudi Hutchison RN 04/09/2023 8:14 AM 04/11/2023 Alyx Sheets, DO 04/09/2023 12:56 AM 04/11/2023 Alyx Sheets, DO 04/08/2023 11:32 PM Length of Stay (Days): 5 GMLOS: No GMLOS Documented [facility] 04-12-2023 Note [facility] - Infectious Diseases Attending Progress Note Subjective: Follow up for E coli bacteremia. She was alert, laying on bed, c/o tiredness and weakness, also, inability to walk; denied fever, abdominal pain, dysuria, appeared debilitated and ill. She was admitted on 04/08/23 with hypotension (BP 69/46) and hyperglycemia, labs showed WBC 19.6, LA 2.1, Cr 1.11, AST 290, ALT 166, Bili 2.7, CT abd/pelvis showed diffuse anasarca throughout the subcutaneous fatty tissue, extrahepatic biliary duct distention ,and prominent pancreatic duct, blood cxs grew E coli. She has h/o breast CA s/p bilateral mastectomy with reoccurrence Lt chest s/p resection- not currently on therapy, cholecystectomy, gastric bypass, DM II, DVT, HTN, HL, and Osteoporosis. She was examined; notes, labs, imaging were reviewed and treatment plan was discussed. Objective: Vitals: Patient Vitals for the past 24 hrs: BP Temp Temp src Pulse Resp SpO2 Weight 04/12/23 1623 (!) 141/93 36.6 ?C (97.8 ?F) -- 109 16 98 % -- 04/12/23 1147 (!) 143/86 36.7 ?C (98.1 ?F) Temporal 95 18 98 % -- 04/12/23 0739 138/81 36.8 ?C (98.3 ?F) Temporal 78 16 99 % -- 04/12/23 0700 -- -- -- -- -- -- 81.9 kg (180 lb 8 oz) 04/12/23 0349 134/70 36.8 ?C (98.3 ?F) Temporal 78 -- 97 % -- 04/11/23 2315 133/73 36.7 ?C (98 ?F) Temporal 87 -- 96 % -- 04/11/238 118/60 36.9 ?C (98.4 ?F) Temporal 83 -- 98 % -- Physical Exam Vitals and nursing note reviewed. Constitutional: General: She is not in acute distress. Appearance: Normal appearance. She is well-developed. She is obese. She is not ill-appearing. Comments: interactive, cooperative, conversant. HENT: Head: Normocephalic and atraumatic. Right Ear: External ear normal. Left Ear: External ear normal. Nose: Nose normal. Mouth/Throat: Mouth: Mucous membranes are moist. Pharynx: Oropharynx is clear. No oropharyngeal exudate. Eyes: General: No scleral icterus. Extraocular Movements: Extraocular movements intact. Conjunctiva/sclera: Conjunctivae normal. Pupils: Pupils are equal, round, and reactive to light. Cardiovascular: Rate and Rhythm: Normal rate and regular rhythm. Pulses: Normal pulses. Heart sounds: Normal heart sounds. No murmur heard. No friction rub. No gallop. Pulmonary: Effort: Pulmonary effort is normal. No respiratory distress. Breath sounds: Normal breath sounds. No stridor. No wheezing, rhonchi or rales. Abdominal: General: Abdomen is flat. There is no distension. Palpations: Abdomen is soft. There is no mass. Tenderness: There is no abdominal tenderness. There is no guarding or rebound. Hernia: No hernia is present. Genitourinary: Comments: No suprapubic or flank pain. Musculoskeletal: General: No swelling or deformity. Normal range of motion. Right lower leg: No edema. Left lower leg: No edema. Skin: General: Skin is warm and dry. Coloration: Skin is not jaundiced. Findings: No rash. Comments: Bruising at R forearm IV site. Neurological: General: No focal deficit present. Mental Status: She is alert and oriented to person, place, and time. Mental status is at baseline. Cranial Nerves: No cranial nerve deficit. Deep Tendon Reflexes: Reflexes normal. Psychiatric: Mood and Affect: Mood normal. Behavior: Behavior normal. Thought Content: Thought content normal. Judgment: Judgment normal. Labs: Recent Labs 04/10/2323204/11/23 0532 04/12/23 0533 NA 134* 136 139 K 3.0* 3.0* 3.2* CL 111* 112* 114* CO2 20* 19* 21* BUN 13 10 9 CREATININE 0.97 0.92 0.85 GLUCOSE 172* 73 87 CALCIUM 6.4* 6.4* 6.6* PROT 4.0* 4.0* 4.4* BILITOT 1.2 0.8 0.5 ALKPHOS 230* 224* 231* AST 101* 70* 68* ALT 109* 94* 73* Recent Labs 04/10/2323204/11/23 0532 WBC 10.3 5.6 HGB 9.2* 8.6* HCT 27.5* 25.3* PLT 95* 79* Micro: No results for input(s): COVID19 in the last 72 hours. 04/09/2023204904/12/2023 0955 Urine culture [[id number]] (Abnormal) Urine, Clean Catch Final result Component Value Urine Culture Normal urogenital ruben present >100,000 CFU/mL Vilma glabrata Abnormal 04/08/2023223104/11/2023718 Blood culture Site #1 - Suspected Infection [[id number]] (Abnormal) Blood, Venous Final result Component Value Blood Culture Escherichia coli Panic For identification and/or sensitivity, refer to culture collected on: 04/08/23 @ 22:20, [place] [id number]. This is an edited result. Previous organism was Gram-negative bacilli on 04/09/2023 at 1153 EST. 04/08/2023222104/08/2023 2306 COVID-19, Flu A/B, and RSV Combo [[id number]] Swab from Nasopharynx Final result Component Value SARS-CoV-2 Not Detected Respiratory Syncytial Virus Not Detected Influenza A Not Detected Influenza B Not Detected 04/08/2023221904/11/2023 0720 Blood culture Site #2 - Suspected Infection [[id number]] (Abnormal) Blood, Venous Final result Component Value Blood Culture Escherichia coli Panic (more content not included)... [facility] 04-12-2023 Note GASTROENTEROLOGY PRO NATHAN NOTE Patient: Christa Stout : 1945 Primary Care Physician: Amalia Cuevas History: Stable, no complaints. MRCP completed, results below. Physical Exam: Gen: AAOx3 in NAD BP (!) 143/86 (BP Location: Right arm, Patient Position: Lying) Pulse 95 Temp 36.7 ?C (98.1 ?F) (Temporal) Resp 18 Ht 5' 3 (1.6 m) Wt 180 lb 8 oz (81.9 kg) SpO2 98% BMI 31.97 kg/m? HEENT: MMM, sclera anicteric CVS: RRR, s1, s2, no mrg Lungs: CTA B/L, no RRW Abd: Soft, NT/ND, +BS, No guarding/rebound, no HSM, no masses palpated Ext: No C/C/E Neuro: No gross focal deficits Laboratory Data: CBC: Results from last 7 days Lab Units 04/11/23 0532 04/10/23 0233 04/09/23 1115 WBC AUTO 10*3/uL 5.6 10.3 17.3* HEMOGLOBIN g/dL 8.6* 9.2* 11.3* HEMATOCRIT % 25.3* 27.5* 35.0 PLATELETS AUTO 10*3/uL 79* 95* 105* CMP: Recent Labs 04/11/23 0532 04/12/23 0533 NA 136 139 K 3.0* 3.2* CL 112* 114* CO2 19* 21* BUN 10 9 CREATININE 0.92 0.85 GLUCOSE 73 87 CALCIUM 6.4* 6.6* HEPATIC: Results from last 7 days Lab Units 04/12/23 0533 04/11/23 0532 04/10/23 0233 ALK PHOS U/L 231* 224* 230* BILIRUBIN TOTAL mg/dL 0.5 0.8 1.2 BILIRUBIN DIRECT mg/dL 0.0 0.0 -- PROTEIN TOTAL g/dL 4.4* 4.0* 4.0* ALT U/L 73* 94* 109* AST U/L 68* 70* 101* Imaging: Exam Date/Time: 04/11/2023 12:15 Procedure: MR ABDOMEN WO CONTRAST Ordering Provider: SOSA JEFFREY Reason For Exam: Dilated bile duct and pancreatic duct MRI ABDOMEN WITHOUT with MRCP EXAM DATE AND TIME: 04/11/2023 12:15 PM EST INDICATION: 78 years Female with Dilated bile duct and pancreatic duct TECHNIQUE: Multiplanar multisequence MR images of the abdomen were performed, including diffusion-weighted images without contrast. Thick section multi-angle and thin section multi-slice MRCP sequences were performed through the abdomen as well. COMPARISON: MRI abdomen from 04/09/2023. CT abdomen pelvis from 04/08/2023. FINDINGS: Lack of intravenous contrast material limits evaluation of the vascular and visceral structures. 3-D MRCP images could not be generated due to scatter air at the end of the exam. DWI imaging also could not be performed. Liver: The liver is normal in size and contour. There is drop in signal on the opposed-phase images consistent with fat deposition. No focal liver lesion. Biliary tree: Status post cholecystectomy. Minimal intrahepatic ductal dilatation. Mild prominence of the common hepatic and common bile ducts, which measure up to 13 mm in diameter. No evidence of choledocholithiasis. No abrupt cut off of the duct. Spleen: Calcified splenic granulomas. Adrenals:Benign left adrenal adenoma, measuring 3.2 cm. Pancreas: Prominence of the main pancreatic duct, which measures up to 9 mm in diameter, within the head of the pancreas. No abrupt cut off of the duct. Diffuse pancreatic parenchymal atrophy. No peripancreatic fluid collection. Colonic diverticulosis. 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 Edematous circumferential wall thickening of the gastric antrum. Postsurgical change of the ventral midline upper abdominal wall. Trace ascites. Kidneys: No hydronephrosis. Hyperintense T2 left renal cortical lesion, measuring 6 mm. This likely represents a tiny cyst. Lymph nodes: No lymphadenopathy. Vasculature: Grossly unremarkable on this noncontrast exam. No significant collaterals or esophageal varices. Visualized Osseous structures: Degenerative change of the spine. IMPRESSION: Abnormal distention of the extrahepatic duct and the common bile duct, of uncertain etiology. No evidence of choledocholithiasis. No definite evidence of an obstructing mass. Consider further evaluation with ERCP. Distal gastritis, involving the excluded portion of the stomach. Trace ascites. Benign left adrenal adenoma. Diffuse hepatic steatosis. Colonic diverticulosis. Assessment: Abnormal LFTs: Continue to trend downward. May have been cholestatic secondary to underlying infection. No obvious obstruction on MRCP. Bile duct dilation may be secondary to cholecystectomy. E. coli bacteremia: Likely urinary source. RLQ pain: No obvious etiology on imaging. Consider musculoskeletal, visceral hypersensitivity. Improving Plan: Monitor LFTs Reviewed MRI with radiology. Some mild pancreatic duct dilation as well. May be consistent with dilated CBD status postcholecystectomy and age-related changes with a component of chronic pancreatitis. Other possibility would be an occult neoplasm. Check GGT. Radiology recommending a repeat MRCP/MRI of the pancreas in 3 months versus an EUS if LFTs remain elevated. Recommend the patient follow-up at [facility] with Dr. Cowart for evaluation and possible outpatient EUS if necessary continue present management (Comment: Please note this report has been produced using speech recognition sof (more content not included)... [facility] 04-12-2023 Note Care Management Prog ress Note TRANSITIONAL CARE DAILY NOTE/UPDATES: Patient remains on 2E due to sepsis. Clinical updates: Patient on IV antibiotics. Potassium low at 3.2. GI and ID following. Discharge plan: back to [facility] when medically stable. Son had called and left , returned call gave update that patient still on IV antibiotics, no plans of dc today. Possibly tomorrow. Discharge obstacles: none noted. TCC to continue to follow. Discharge Milestones and Delays Expected Date/Time: 04/13/[address] discharge order Complete med reconciliation Case mgmt discharge readiness Clinical Stability Diagnsotic Workup Expected Discharge History Expected Date/Time Set By Reviewed At 04/13/2023 Trudi Hutchison RN 04/12/2023 12:02 PM 04/12/2023 Trudi Hutchison RN 04/12/2023 8:12 AM 04/11/2023 Trudi Hutchison RN 04/09/2023 8:14 AM 04/11/2023 Alyx Sheets DO 04/09/2023 12:56 AM 04/11/2023 Alyx Sheets DO 04/08/2023 11:32 PM Length of Stay (Days): 4 GMLOS: No GMLOS Documented [facility] 04-12-2023 Note Formatting of this n ote is different from the original. Images from the original note were not included. Care Management Progress Note TRANSITIONAL CARE DAILY NOTE/UPDATES: Patient remains on 2E due to sepsis. Clinical updates: Patient on IV antibiotics. Potassium low at 3.2. GI and ID following. Discharge plan: back to [facility] when medically stable. Son had called and left , returned call gave update that patient still on IV antibiotics, no plans of dc today. Possibly tomorrow. Discharge obstacles: none noted. TCC to continue to follow. Discharge Milestones and Delays Expected Date/Time: 04/13/[address] discharge order Complete med reconciliation Case mgmt discharge readiness Clinical Stability Diagnsotic Workup Expected Discharge History Expected Date/Time Set By Reviewed At 04/13/2023 Trudi Hutchison RN 04/12/2023 12:02 PM 04/12/2023 Trudi Hutchison RN 04/12/2023 8:12 AM 04/11/2023 Trudi Hutchison RN 04/09/2023 8:14 AM 04/11/2023 Alyx Sheets, DO 04/09/2023 12:56 AM 04/11/2023 Alyx Sheets, DO 04/08/2023 11:32 PM Length of Stay (Days): 4 GMLOS: No GMLOS Documented [facility] 04-12-2023 Note Formatting of this n ote is different from the original. Images from the original note were not included. Care Management Progress Note TRANSITIONAL CARE DAILY NOTE/UPDATES: Patient remains on 2E due to sepsis. Clinical updates: Patient on IV antibiotics. Potassium low at 3.2. GI and ID following. Discharge plan: back to [facility] when medically stable. Son had called and left , returned call gave update that patient still on IV antibiotics, no plans of dc today. Possibly tomorrow. Discharge obstacles: none noted. TCC to continue to follow. Discharge Milestones and Delays Expected Date/Time: 04/13/[address] discharge order Complete med reconciliation Case mgmt discharge readiness Clinical Stability Diagnsotic Workup Expected Discharge History Expected Date/Time Set By Reviewed At 04/13/2023 Trudi Hutchison RN 04/12/2023 12:02 PM 04/12/2023 Trudi Hutchison RN 04/12/2023 8:12 AM 04/11/2023 Trudi Hutchison RN 04/09/2023 8:14 AM 04/11/2023 Alyx Sheets, 04/09/2023 12:56 AM 04/11/2023 Alyx Sheets, DO 04/08/2023 11:32 PM Length of Stay (Days): 4 GMLOS: No GMLOS Documented [facility] 04-12-2023 Note Department of Family Medicine Daily Progress Note Subjective Chief Complaint (required for billing): Sepsis (HCC) Pt resting tocay waiting to see what GI thinks of mrcp results ROS: Review of Systems Objective BP 138/81 Pulse 78 Temp 36.8 ?C (98.3 ?F) (Temporal) Resp 16 Ht 5' 3 (1.6 m) Wt 180 lb 8 oz (81.9 kg) SpO2 99% BMI 31.97 kg/m? Physical Exam Pt is alert and oiriented x 3 Heent wnl Heart regular Lungs ctab Abd benign Ext no edema Labs Notable Labs: Current Medications Medication orders reviewed, see MAR Assessment/Plan Principal Problem: Sepsis (HCC) Sepsis possible urinary source E coli bacteremia Hypotension Lactic acidosis resolved Transaminitis MRCP showed abnormal distention of the CBD ? etiology Anemia Plan Cont iv cefazolin and change to keflex if continues to do well will se what GI feels about MRCP FEN:Adult diet Regular; 4 carb choices (60 gm/meal) GI prophylaxis: NA DVT prophylaxis: lovenox # Anticipated Discharge - Date - 1-2 d - Location - Skilled Facility - Pending the following - ALYX SHEETS DO 04/12/23 9:02 AM [facility] 04-11-2023 Note GASTROENTEROLOGY PRO NATHAN NOTE Patient: Christa Stout : 1945 Primary Care Physician: Amalia Cuevas History: Stable overnight. No complaints. Tolerating p.o. without difficulty. Denies any abdominal pain, nausea, vomiting, F/C/S Physical Exam: Gen: AAOx3 in NAD BP 111/56 (BP Location: Right arm, Patient Position: Lying) Pulse 71 Temp 36.8 ?C (98.2 ?F) (Temporal) Resp 18 Ht 5' 3 (1.6 m) Wt 173 lb (78.5 kg) SpO2 100% BMI 30.65 kg/m? HEENT: MMM, sclera anicteric CVS: RRR, s1, s2 Abd: Soft, NT/ND, +BS, No guarding/rebound, Laboratory Data: CBC: Results from last 7 days Lab Units 04/11/23 0532 04/10/23 0233 04/09/23 1115 WBC AUTO 10*3/uL 5.6 10.3 17.3* HEMOGLOBIN g/dL 8.6* 9.2* 11.3* HEMATOCRIT % 25.3* 27.5* 35.0 PLATELETS AUTO 10*3/uL 79* 95* 105* CMP: Recent Labs 04/10/23 0233 04/11/23 0532 NA 134* 136 K 3.0* 3.0* CL 111* 112* CO2 20* 19* BUN 13 10 CREATININE 0.97 0.92 GLUCOSE 172* 73 CALCIUM 6.4* 6.4* HEPATIC: Results from last 7 days Lab Units 04/11/23 0532 04/10/23 0233 04/09/23 1115 ALK PHOS U/L 224* 230* 256* BILIRUBIN TOTAL mg/dL 0.8 1.2 2.5* BILIRUBIN DIRECT mg/dL 0.0 -- -- PROTEIN TOTAL g/dL 4.0* 4.0* 4.4* ALT U/L 94* 109* 135* AST U/L 70* 101* 153* Imaging: MRCP - Pending Assessment: Abnormal LFTs: Continue to trend downward. May have been cholestatic secondary to underlying infection. Rule out any obstructive process. E. coli bacteremia: Likely urinary source. RLQ pain: No obvious etiology on imaging. Consider musculoskeletal, visceral hypersensitivity. Improving Plan: Continue present management Monitor LFTs Follow-up MRCP Consider outpatient liver workup if LFTs remain elevated and MRCP is unremarkable. (Comment: Please note this report has been produced using speech recognition software and may contain errors related to that system including errors in grammar, punctuation, and spelling, as well as words and phrases that may be inappropriate. If there are any questions or concerns please feel free to contact the dictating provider for clarification.) Electronically signed by Wilder Sosa, DO 04/11/2023 11:18 AM [facility] 04-11-2023 Note Department of Family Medicine Daily Progress Note Subjective Chief Complaint (required for billing): Sepsis (HCC) Pt feeling much better today no complaints ROS: Review of Systems Objective BP 111/56 (BP Location: Right arm, Patient Position: Lying) Pulse 71 Temp 36.8 ?C (98.2 ?F) (Temporal) Resp 18 Ht 5' 3 (1.6 m) Wt 173 lb (78.5 kg) SpO2 100% BMI 30.65 kg/m? Physical Exam Pt is alert and oiriented x 3 Heent wnl Heart regular Lungs ctab Abd benign Ext no edema Labs Notable Labs: K 3.0 Current Medications Medication orders reviewed, see MAR Assessment/Plan Principal Problem: Sepsis (HCC) Sepsis possible urinary source E coli bacteremia Hypotension Lactic acidosis resolved Transaminitis MRCP today Anemia Plan Replace K Cont with current antibiotics Await MRCP FEN:Adult diet Regular; 4 carb choices (60 gm/meal) GI prophylaxis: NA DVT prophylaxis: lovenox # Anticipated Discharge - Date - 2 d - Location - Skilled Facility - Pending the following - ALYX SHEETS, DO 04/11/23 9:48 AM [facility] 04-11-2023 Note [facility] - Infectious Diseases Attending Progress Note Subjective: Following for e coli bacteremia. Patient without new complaints this morning. Asking if she is going to be stuck again. States she is feeling better overall. Denies fever, chills, cP/SOB. Had some urinary symptoms leading to admit, but is not having dysuria or frequently currently. Denies flank or back pain. No new abdominal pain. No other new exacerbating or alleviating factors. Objective: Vitals: Patient Vitals for the past 24 hrs: BP Temp Temp src Pulse Resp SpO2 Weight 04/11/23 0743 111/56 36.8 ?C (98.2 ?F) Temporal 71 18 100 % -- 04/11/23 0700 -- -- -- -- -- -- 78.5 kg (173 lb) 04/11/23 0342 108/63 36.2 ?C (97.1 ?F) Temporal 72 17 99 % -- 04/10/23 2350 111/63 36.2 ?C (97.1 ?F) Temporal 75 18 100 % -- 04/10/23 1925 (!) 142/69 36.4 ?C (97.5 ?F) Temporal 90 18 100 % -- 04/10/23 1559 114/63 36.3 ?C (97.3 ?F) Temporal 105 20 97 % -- Physical Exam Vitals and nursing note reviewed. Constitutional: General: She is not in acute distress. Appearance: Normal appearance. She is well-developed. She is obese. She is not ill-appearing. Comments: NAD in bed, interactive, cooperative, conversant. Looks better overall. HENT: Head: Normocephalic and atraumatic. Right Ear: External ear normal. Left Ear: External ear normal. Nose: Nose normal. Mouth/Throat: Mouth: Mucous membranes are moist. Pharynx: Oropharynx is clear. No oropharyngeal exudate. Eyes: General: No scleral icterus. Extraocular Movements: Extraocular movements intact. Conjunctiva/sclera: Conjunctivae normal. Pupils: Pupils are equal, round, and reactive to light. Cardiovascular: Rate and Rhythm: Normal rate and regular rhythm. Pulses: Normal pulses. Heart sounds: Normal heart sounds. No murmur heard. No friction rub. No gallop. Pulmonary: Effort: Pulmonary effort is normal. No respiratory distress. Breath sounds: Normal breath sounds. No stridor. No wheezing, rhonchi or rales. Abdominal: General: Abdomen is flat. There is no distension. Palpations: Abdomen is soft. There is no mass. Tenderness: There is no abdominal tenderness. There is no guarding or rebound. Hernia: No hernia is present. Genitourinary: Comments: No suprapubic or flank pain. Musculoskeletal: General: No swelling or deformity. Normal range of motion. Right lower leg: No edema. Left lower leg: No edema. Skin: General: Skin is warm and dry. Coloration: Skin is not jaundiced. Findings: No rash. Comments: A few very long finger nails. Bruising at R forearm IV site. Neurological: General: No focal deficit present. Mental Status: She is alert and oriented to person, place, and time. Mental status is at baseline. Cranial Nerves: No cranial nerve deficit. Deep Tendon Reflexes: Reflexes normal. Psychiatric: Mood and Affect: Mood normal. Behavior: Behavior normal. Thought Content: Thought content normal. Judgment: Judgment normal. Labs: Recent Labs 04/08/23 2220 04/09/23 1115 04/10/23 0233 04/11/23 0532 NA 133* 136 134* 136 K 3.5 3.5 3.0* 3.0* CL 105 110* 111* 112* CO2 21* 19* 20* 19* BUN 14 13 13 10 CREATININE 1.11* 0.89 0.97 0.92 GLUCOSE 267* 252* 172* 73 CALCIUM 7.2* 6.6* 6.4* 6.4* PROT 4.6* 4.4* 4.0* -- BILITOT 2.7* 2.5* 1.2 -- ALKPHOS 269* 256* 230* -- AST 290* 153* 101* -- ALT 166* 135* 109* -- PROCAL -- 2.38* -- -- Recent Labs 04/08/23221904/09/23 1115 04/10/23 0233 04/11/23 0532 WBC 19.6* 17.3* 10.3 5.6 HGB 11.3* 11.3* 9.2* 8.6* HCT 34.4* 35.0 27.5* 25.3* PLT 134* 105* 95* 79* LYMPHOPCT 4.2* 3.3* -- -- MONOPCT 6.2 6.0 -- -- BASOPCT 0.0 0.3 -- -- NEUTROABS 17.5* 15.6* -- -- 04/08 UA + pyuria. Micro: No results for input(s): COVID19 in the last 72 hours. 04/08 Blood 2/2 E coli, BF E coli Escherichia coli BROTH MICRODILUTION Ampicillin >=32 ug/ml Resistant Ampicillin / Sulbactam 16 ug/ml Intermediate Aztreonam <=1 ug/ml Susceptible Cefazolin <=4 ug/ml Susceptible Cefepime <=1 ug/ml Susceptible Ceftriaxone <=1 ug/ml Susceptible Ciprofloxacin <=0.25 ug/ml Susceptible Gentamicin <=1 ug/ml Susceptible Meropenem <=0.25 ug/ml Susceptible Piperacillin / Tazobactam <=4 ug/ml Susceptible Trimethoprim / Sulfamethoxazole <=20 ug/ml Susceptible 04/08 4 plex (-) 04/09 urine NGTD Lines: PIV Radiography/Echo/Other: 04/09 MRI abd: IMPRESSION: There is a 3.1 cm left adrenal gland mass. 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 04/09 US Abd: IMPRESSION: Fatty liver, otherwise unremarkable ultrasound of the abdomen. 04/08 CT C/A/P: IMPRESSION: CHEST: 1. No pulmonary artery embolus. 2. Pulmonary vascular congestion with a small left pleural effusion with compressive atelectasis and/or infiltrate. 3. Healing right rib 10 fracture with callus formation. Subtle sclerosis along the mid sternum with mild cortica (more content not included)... [facility] 04-10-2023 Note GASTROENTEROLOGY CON SULTATION REASON FOR CONSULT: The patient was seen in consultation at the request of Dr. Sheets re: Transaminitis HISTORY OF PRESENT ILLNESS: The patient is a 78 y.o. female with past medical history as listed below who presents with hypotension and hyperglycemia. Noted to have an elevated WBC 19.6, LA 2.1, abnormal LFTs as noted below. Admitted for sepsis of unknown etiology. Seen by ID and started on vancomycin and Zosyn. Contrast-enhanced CT significant for extrahepatic biliary duct dilation and mild pancreatic duct dilation. No reported pancreatic lesions or masses. Patient is status postcholecystectomy and has a known history of gastric bypass by history.Hemodynamically stable and afebrile this morning. Denies any nausea, vomiting, abdominal pain, jaundice, pruritus. No prior history of chronic liver disease. Denies any history of alcohol use. PAST MEDICAL HISTORY: Past Medical History: Diagnosis Date Breast CA (HCC) Cerebral artery occlusion with cerebral infarction (HCC) Depression Diabetes mellitus (HCC) DVT (deep venous thrombosis) (HCC) GERD (gastroesophageal reflux disease) Hyperlipidemia Hypertension Muscle weakness-general Osteoporosis UTI (urinary tract infection) PAST SURGICAL HISTORY: Past Surgical History: Procedure Laterality Date APPENDECTOMY BREAST LUMPECTOMY Left CHOLECYSTECTOMY GASTRIC BYPASS MASTECTOMY TONSILLECTOMY AND ADENOIDECTOMY (HISTORICAL) TOTAL ABDOMINAL HYSTERECTOMY SOCIAL HISTORY: TOBACCO: Social History Tobacco Use Smoking Status Former Smokeless Tobacco Never ETOH: Alcohol Use: Not At Risk (04/09/2023) AUDIT-C Frequency of Alcohol Consumption: 2-4 times a month Average Number of Drinks: Patient does not drink Frequency of Binge Drinking: Never DRUGS: Social History Substance and Sexual Activity Drug Use Not Currently FAMILY HISTORY: Family History Problem Relation Name Age of Onset Breast cancer Mother Diabetes type II Mother MEDICATIONS PRIOR TO ADMISSION: Current Outpatient Medications Medication Instructions acetaminophen (TYLENOL) 650 mg, Oral, Every 6 hours PRN apixaban (ELIQUIS) 5 mg, Oral, 2 times daily bisacodyl (DULCOLAX) 10 mg, Rectal, Daily PRN bisacodyl (DULCOLAX) 5 mg, Oral, Daily PRN, Do not crush, chew, or split. Calcium Carb-Cholecalciferol (Calcium 600/Vitamin D) 600-10 MG-MCG tablet 2 tablets, Oral, 2 time daily camphor-phenol (Campho-Phenique) 10.8-4.7 % liquid 2 Applications, Topical, 2 times daily PRN carboxymethylcellulose (Refresh Plus) 0.5 % ophthalmic solution 1 drop, Both Eyes, 3 times daily PRN Cholecalciferol (VITAMIN D-[address] PO) 1 tablet, Oral, Daily cyanocobalamin (VITAMIN B-12) 1,000 mcg, Oral, Daily D-Mannose 500 MG capsule 1 tablet, Oral, 3 times daily docusate sodium (COLACE) 100 mg, Oral, Daily estradiol (ESTRACE) 2 g, Vaginal, 3 times weekly, Wednesday at night exemestane (AROMASIN) 25 mg, Oral, Daily, Take after a meal. Try to take at the same time each day. FLUoxetine (PROZAC) 10 mg, Oral, Daily insulin glargine (LANTUS) 16 Units, SubCUTAneous, Nightly levothyroxine (SYNTHROID, LEVOXYL) 25 mcg, Oral, Daily before breakfast Magnesium Hydroxide (MILK OF MAGNESIA PO) 30 mg, Oral, Daily PRN Melatonin 5 mg, Oral, Nightly PRN omeprazole (PRILOSEC) 20 mg, Oral, Daily, Do not crush or chew. oxybutynin XL (DITROPAN-XL) 15 mg, Oral, Daily, Do not crush, chew, or split. Probiotic Product (GuestShots) 170 MG capsule 1 capsule, Oral, Daily simethicone (MYLICON) 80 mg, Oral, Every 6 hours PRN traMADol (ULTRAM) 50 mg, Oral, Every 6 hours PRN CURRENT MEDICATIONS: Current Facility-Administered Medications: acetaminophen (Tylenol) tablet 650 mg, 650 mg, Oral, q6h PRN OR acetaminophen (Tylenol) suppository 650 mg, 650 mg, Rectal, q6h PRN, Alyx M Esterle, DO apixaban (Eliquis) tablet 5 mg, 5 mg, Oral, BID, Alyx M Esterle, DO, 5 mg at 04/10/23 0857 bisacodyl (Dulcolax) suppository 10 mg, 10 mg, Rectal, Daily PRN, Alyx M Esterle, DO carboxymethylcellulose PF (Refresh Plus) 0.5 % ophthalmic solution 1 drop, 1 drop, Both Eyes, TID PRN, Alyx M Esterle, DO dextrose 5 % infusion, 100 mL/hr, IntraVENous, PRN, Alyx M Esterle, DO dextrose 50 % solution 12.5 g, 12.5 g, IntraVENous, PRN, Alyx M Esterle, DO exemestane (Aromasin) chemo tablet 25 mg, 25 mg, Oral, Daily, Alyx M Esterle, DO, 25 mg at 04/10/23857 FLUoxetine (PROzac) capsule 10 mg, 10 mg, Oral, Daily, Alyx M Esterle, DO, 10 mg at 04/10/23857 glucagon (human recombinant) injection 1 mg, 1 mg, IntraMUSCular, PRN, Alyx M Esterle, DO glucose oral gel 15 g, 15 g, Oral, PRN, Alyx M Esterle, DO insulin glargine (Lantus) injection 16 Units, 16 Units, SubCUTAneous, Nightly, Alyx M Esterle, DO, 16 Units at 04/09/232035 Insulin Lispro (Humalog) injection 0-12 Units, 0-12 Units, SubCUTAneous, TID WC, 1 Units at 04/10/23 0853 AND (more content not included)... [facility] 04-10-2023 Note [facility] - Infectious Diseases Attending Progress Note Subjective: Following for sepsis. Patient without new complaints this morning. States she is feeling better overall. Denies fever, chills, cP/SOB. Had some urinary symptoms leading to admit, but is not having dysuria or frequently currently. Denies flank or back pain. No new abdominal pain. No other new exacerbating or alleviating factors. Objective: Vitals: Patient Vitals for the past 24 hrs: BP Temp Temp src Pulse Resp SpO2 Height Weight 04/10/23 0801 115/61 36.3 ?C (97.3 ?F) Temporal 89 16 100 % -- -- 04/10/23 0339 -- -- -- -- -- -- -- 79.1 kg (174 lb 6.1 oz) 04/10/23 0328 119/77 36.4 ?C (97.5 ?F) Temporal 103 16 99 % -- -- 04/10/23 0024 99/61 36.3 ?C (97.3 ?F) Temporal (!) 111 18 99 % -- -- 04/09/23 2219 96/64 36.4 ?C (97.6 ?F) Temporal (!) 114 18 100 % -- -- 04/09/23 2030 93/60 36.5 ?C (97.7 ?F) Temporal (!) 122 -- 100 % -- -- 04/09/23 1611 114/67 36.8 ?C (98.2 ?F) Temporal (!) 134 18 100 % -- -- 04/09/23 1244 -- -- -- -- -- -- 1.6 m (5' 3 ) -- 04/09/23 1126 87/56 36.1 ?C (97 ?F) Temporal 96 16 94 % -- -- Physical Exam Vitals and nursing note reviewed. Constitutional: General: She is not in acute distress. Appearance: Normal appearance. She is well-developed. She is obese. She is not ill-appearing. Comments: NAD in bed, interactive, cooperative, conversant. HENT: Head: Normocephalic and atraumatic. Right Ear: External ear normal. Left Ear: External ear normal. Nose: Nose normal. Mouth/Throat: Mouth: Mucous membranes are moist. Pharynx: Oropharynx is clear. No oropharyngeal exudate. Eyes: General: No scleral icterus. Extraocular Movements: Extraocular movements intact. Conjunctiva/sclera: Conjunctivae normal. Pupils: Pupils are equal, round, and reactive to light. Cardiovascular: Rate and Rhythm: Normal rate and regular rhythm. Pulses: Normal pulses. Heart sounds: Normal heart sounds. No murmur heard. No friction rub. No gallop. Pulmonary: Effort: Pulmonary effort is normal. No respiratory distress. Breath sounds: Normal breath sounds. No stridor. No wheezing, rhonchi or rales. Abdominal: General: Abdomen is flat. There is no distension. Palpations: Abdomen is soft. There is no mass. Tenderness: There is no abdominal tenderness. There is no guarding or rebound. Hernia: No hernia is present. Genitourinary: Comments: No suprapubic or flank pain. Musculoskeletal: General: No swelling or deformity. Normal range of motion. Right lower leg: No edema. Left lower leg: No edema. Skin: General: Skin is warm and dry. Coloration: Skin is not jaundiced. Findings: No rash. Comments: A few very long finger nails. Neurological: General: No focal deficit present. Mental Status: She is alert and oriented to person, place, and time. Mental status is at baseline. Cranial Nerves: No cranial nerve deficit. Deep Tendon Reflexes: Reflexes normal. Psychiatric: Mood and Affect: Mood normal. Behavior: Behavior normal. Thought Content: Thought content normal. Judgment: Judgment normal. Labs: Recent Labs 04/08/23221904/09/235 04/10/23 0233 NA 133* 136 134* K 3.5 3.5 3.0* CL 105 110* 111* CO2 21* 19* 20* BUN 14 13 13 CREATININE 1.11* 0.89 0.97 GLUCOSE 267* 252* 172* CALCIUM 7.2* 6.6* 6.4* PROT 4.6* 4.4* 4.0* BILITOT 2.7* 2.5* 1.2 ALKPHOS 269* 256* 230* AST 290* 153* 101* ALT 166* 135* 109* PROCAL -- 2.38* -- Recent Labs 04/08/23221904/09/23 1115 04/10/23 0233 WBC 19.6* 17.3* 10.3 HGB 11.3* 11.3* 9.2* HCT 34.4* 35.0 27.5* PLT 134* 105* 95* LYMPHOPCT 4.2* 3.3* -- MONOPCT 6.2 6.0 -- BASOPCT 0.0 0.3 -- NEUTROABS 17.5* 15.6* -- 04/08 UA + pyuria. Micro: No results for input(s): COVID19 in the last 72 hours. 04/08 Blood 2/2 E coli, BF E coli 04/08 4 plex (-) 04/08 urine NGTD Lines: PIV Radiography/Echo/Other: 04/09 MRI abd: IMPRESSION: There is a 3.1 cm left adrenal gland mass. 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 04/09 US Abd: IMPRESSION: Fatty liver, otherwise unremarkable ultrasound of the abdomen. 04/08 CT C/A/P: IMPRESSION: CHEST: 1. No pulmonary artery embolus. 2. Pulmonary vascular congestion with a small left pleural effusion with compressive atelectasis and/or infiltrate. 3. Healing right rib 10 fracture with callus formation. Subtle sclerosis along the mid sternum with mild cortical irregularity likely reflects a healing fracture. ABDOMEN/PELVIS: 1. Diffuse anasarca throughout the subcutaneous fatty tissue. 2. There is an indeterminate left adrenal gland 3.1 cm nodule. Recommend follow-up MRI adrenal gland protocol when feasible. 3. Small hiatal hernia with postsurgical changes of the stomach and gastroesophageal junction 4. Cholecystectomy with extrahepatic biliary duct distention, correlate with lab values. 5. The pancreat (more content not included)... [facility] 04-10-2023 Note Department of Family Medicine Daily Progress Note Subjective Chief Complaint (required for billing): Sepsis (HCC) Pt doing a little better this am she is positive for E coli bacteremia likely urine ROS: Review of Systems Objective BP 115/61 (BP Location: Right arm, Patient Position: Lying) Pulse 89 Temp 36.3 ?C (97.3 ?F) (Temporal) Resp 16 Ht 5' 3 (1.6 m) Wt 174 lb 6.1 oz (79.1 kg) SpO2 100% BMI 30.89 kg/m? Physical Exam Pt is alert and oiriented x 3 Heent wnl Heart regular Lungs ctab Abd benign Ext no edema Labs Notable Labs: Current Medications Medication orders reviewed, see MAR Assessment/Plan Principal Problem: Sepsis (HCC) Sepsis possible urinary source Hypotension Lactic acidosis resolved Transaminitis Anemia Plan Await final cultures Cont zosyn and vanco for now Await GI consult for elevated LFTs FEN:Adult diet Regular; 4 carb choices (60 gm/meal) GI prophylaxis: NA DVT prophylaxis: lovenox # Anticipated Discharge - Date - 2 d - Location - Skilled Facility - Pending the following - ALYX SHEETS, 04/10/23 9:33 AM [facility] 04-10-2023 Consult note Formatting of th is note might be different from the original. Vancomycin therapy has been discontinued by Dr. Haines on 04/10/23. Thank you for the consult. Pharmacy signing off for vancomycin dosing. Anthony Rojas RP, PharmD Date: 04/10/23 Time: 10:46 AM [facility] 04-10-2023 Consult note Formatting of th is note might be different from the original. Vancomycin therapy has been discontinued by Dr. Haines on 04/10/23. Thank you for the consult. Pharmacy signing off for vancomycin dosing. Anthony Rojas RPh, PharmD Date: 04/10/23 Time: 10:46 AM Associated Order(s): IP CONSULT TO GI Images from the original note were not included. GASTROENTEROLOGY CONSULTATION REASON FOR CONSULT: The patient was seen in consultation at the request of Dr. Shetes re: Transaminitis HISTORY OF PRESENT ILLNESS: The patient is a 78 y.o. female with past medical history as listed below who presents with hypotension and hyperglycemia. Noted to have an elevated WBC 19.6, LA 2.1, abnormal LFTs as noted below. Admitted for sepsis of unknown etiology. Seen by ID and started on vancomycin and Zosyn. Contrast-enhanced CT significant for extrahepatic biliary duct dilation and mild pancreatic duct dilation. No reported pancreatic lesions or masses. Patient is status postcholecystectomy and has a known history of gastric bypass by history. Hemodynamically stable and afebrile this morning. Denies any nausea, vomiting, abdominal pain, jaundice, pruritus. No prior history of chronic liver disease. Denies any history of alcohol use. PAST MEDICAL HISTORY: Past Medical History: Diagnosis Date Breast CA (HCC) Cerebral artery occlusion with cerebral infarction (HCC) Depression Diabetes mellitus (HCC) DVT (deep venous thrombosis) (HCC) GERD (gastroesophageal reflux disease) Hyperlipidemia Hypertension Muscle weakness-general Osteoporosis UTI (urinary tract infection) PAST SURGICAL HISTORY: Past Surgical History: Procedure Laterality Date APPENDECTOMY BREAST LUMPECTOMY Left CHOLECYSTECTOMY GASTRIC BYPASS MASTECTOMY TONSILLECTOMY AND ADENOIDECTOMY (HISTORICAL) TOTAL ABDOMINAL HYSTERECTOMY SOCIAL HISTORY: TOBACCO: Social History Tobacco Use Smoking Status Former Smokeless Tobacco Never ETOH: Alcohol Use: Not At Risk (04/09/2023) AUDIT-C Frequency of Alcohol Consumption: 2-4 times a month Average Number of Drinks: Patient does not drink Frequency of Binge Drinking: Never DRUGS: Social History Substance and Sexual Activity Drug Use Not Currently FAMILY HISTORY: Family History Problem Relation Name Age of Onset Breast cancer Mother Diabetes type II Mother MEDICATIONS PRIOR TO ADMISSION: Current Outpatient Medications Medication Instructions acetaminophen (TYLENOL) 650 mg, Oral, Every 6 hours PRN apixaban (ELIQUIS) 5 mg, Oral, 2 times daily bisacodyl (DULCOLAX) 10 mg, Rectal, Daily PRN bisacodyl (DULCOLAX) 5 mg, Oral, Daily PRN, Do not crush, chew, or split. Calcium Carb-Cholecalciferol (Calcium 600/Vitamin D) 600-10 MG-MCG tablet 2 tablets, Oral, 2 time daily camphor-phenol (Campho-Phenique) 10.8-4.7 % liquid 2 Applications, Topical, 2 times daily PRN carboxymethylcellulose (Refresh Plus) 0.5 % ophthalmic solution 1 drop, Both Eyes, 3 times daily PRN Cholecalciferol (VITAMIN D-[address] PO) 1 tablet, Oral, Daily cyanocobalamin (VITAMIN B-12) 1,000 mcg, Oral, Daily D-Mannose 500 MG capsule 1 tablet, Oral, 3 times daily docusate sodium (COLACE) 100 mg, Oral, Daily estradiol (ESTRACE) 2 g, Vaginal, 3 times weekly, Wednesday at night exemestane (AROMASIN) 25 mg, Oral, Daily, Take after a meal. Try to take at the same time each day. FLUoxetine (PROZAC) 10 mg, Oral, Daily insulin glargine (LANTUS) 16 Units, SubCUTAneous, Nightly levothyroxine (SYNTHROID, LEVOXYL) 25 mcg, Oral, Daily before breakfast Magnesium Hydroxide (MILK OF MAGNESIA PO) 30 mg, Oral, Daily PRN Melatonin 5 mg, Oral, Nightly PRN omeprazole (PRILOSEC) 20 mg, Oral, Daily, Do not crush or chew. oxybutynin XL (DITROPAN-XL) 15 mg, Oral, Daily, Do not crush, chew, or split. Probiotic Product (GuestShots) 170 MG capsule 1 capsule, Oral, Daily simethicone (MYLICON) 80 mg, Oral, Every 6 hours PRN traMADol (ULTRAM) 50 mg, Oral, Every 6 hours PRN CURRENT MEDICATIONS: Current Facility-Administered Medications: acetaminophen (Tylenol) tablet 650 mg, 650 mg, Oral, q6h PRN OR acetaminophen (Tylenol) suppository 650 mg, 650 mg, Rectal, q6h PRN, Alyx M Esterle, DO apixaban (Eliquis) tablet 5 mg, 5 mg, Oral, BID, Alyx M Esterle, DO, 5 mg at 04/10/23 0857 bisacodyl (Dulcolax) suppository 10 mg, 10 mg, Rectal, Daily PRN, Alyx M Esterle, DO carboxymethylcellulose PF (Refresh Plus) 0.5 % ophthalmic solution 1 drop, 1 drop, Both Eyes, TID PRN, Alyx M Esterle, DO dextrose 5 % infusion, 100 mL/hr, IntraVENous, PRN, Alyx M Esterle, DO dextrose 50 % solution 12.5 g, 12.5 g, IntraVENous, PRN, Alyx M Esterle, DO exemestane (Aromasin) chemo tablet 25 mg, 25 mg, Oral, Daily, Alyx M Esterle, DO, 25 mg at 04/10/23 0858 FLUoxetine (PROzac) capsule 10 mg, 10 mg, Oral, Daily, Alyx M Esterle, DO, 10 mg at 04/10/2358 glucagon (human recombinant) injection 1 mg, 1 mg, IntraMUSCular, PRN, Alyx M Esterle, DO glucose oral gel 15 g, 15 g, Oral, PRN, Alyx M Esterle, DO insulin glargine (Lantus) injection 16 Units, 16 Units, SubCUTAneous, Nightly, Alyx M Esterle, DO, 16 Units at 04/09/232035 Insulin Lispro (Humalog) injection 0-12 Units, 0-12 Units, SubCUTAneous, TID WC, 1 Units at 04/10/2353 AND Insulin Lispro (Humalog) injection 0-12 Units, 0-12 Units, SubCUTAneous, Nightly, Alyx M Esterle, DO, 8 Units at 04/09/232036 levothyroxine (Synthroid, Levoxyl) tablet 25 mcg, 25 mcg, Oral, qAM AC, Alyx M Esterle, DO, 25 mcg at 04/10/23603 Melatonin disintegrating tablet 5 mg, 5 mg, Oral, Nightly, Alyx M Esterle, DO, 5 mg at 04/09/232034 ondansetron ODT (Zofran-ODT) disintegrating tablet 4 mg, 4 mg, Oral, q8h PRN OR ondansetron (Zofran) injection 4 mg, 4 mg, IntraVENous, q6h PRN, Layx M Esterle, DO pantoprazole (ProtoNix) EC tablet 40 mg, 40 mg, Oral, qAM AC, Alyx M Esterle, DO, 40 mg at 04/10/23603 piperacillin-tazobactam (Zosyn) 3,375 mg in sodium chloride 0.9 % 50 mL IVPB Mini-Bag Plus, 3,375 mg, IntraVENous, q8h, Alyx M Esterle, DO, Last Rate: 12.5 mL/hr at 04/10/23605, 3,375 mg at 04/10/23605 polyethylene glycol (PEG) 3350 (Miralax) packet 17 g, 17 g, Oral, Daily PRN, Alyx M Esterle, DO potassium chloride CR (Klor-Con M20) ER tablet 40 mEq, 40 mEq, Oral, Once, Alyx M Esterle, DO sodium chloride 0.9 % infusion, 5-250 mL/hr, IntraVENous, PRN, Alyx M Esterle, DO sodium chloride 0.9 % infusion, 75 mL/hr, IntraVENous, Continuous, Alyx M Esterle, DO, Last Rate: 75 mL/hr at 04/10/23 0236, 75 mL/hr at 04/10/23 0236 sodium chloride 0.9 % infusion, 100 mL/hr, IntraVENous, Continuous, Alyx M Esterle, DO, Last Rate: 100 mL/hr at 04/10/23 0852, 100 mL/hr at 04/10/23851 sodium chloride 0.9% (NS) flush 10 mL, 10 mL, IntraVENous, 2 times per day, Alyx M Esterle, DO, 10 mL at 04/09/232037 sodium chloride 0.9% (NS) flush 10 mL, 10 mL, IntraVENous, PRN, Alyx M Esterle, DO traMADol (Ultram) tablet 50 mg, 50 mg, Oral, q6h PRN, Alyx M Esterle, DO trospium (Sanctura) tablet 20 mg, 20 mg, Oral, Daily, Alyx M Esterle, DO, 20 mg at 04/10/23 0857 vancomycin IVPB 1250 mg in 250 mL NS (premix), 1,250 mg, IntraVENous, q24h, Alyx M Esterle, DO, Stopped at 04/10/23 0015 ALLERGIES: Allergies Allergen Reactions Aspirin Other and Swelling Lips swell Lips swell Other reaction(s): Other (See Comments) Lips swell Ibuprofen Swelling Latex Unknown REVIEW OF SYMPTOMS: Ten-point review of symptoms was noted and reviewed in the chart. PHYSICAL EXAM VS:vBP 115/61 (BP Location: Right arm, Patient Position: Lying) Pulse 89 Temp 36.3 C (97.3 F) (Temporal) Resp 16 Ht 5' 3 (1.6 m) Wt 174 lb 6.1 oz (79.1 kg) SpO2 100% BMI 30.89 kg/m Body mass index is 30.89 kg/m . GENERAL: Pleasant and NAD. HEENT: Scleral anicteric. Oropharhynx clear with no erythema or exudate. CV: RRR, NL S1/S2, no murmurs. LUNGS: CTA b/l. No W/R/R. ABDOMEN: ,soft, RLQ tenderness to deep palpation and non-distended, + BS. No hepatosplenomegaly. No mass felt. No rebound or guarding. No hernia. SKIN: No obvious skin lesions or rashes NEURO: A&O x 3, No obvious focal deficits. LABS AND IMAGING: Recent blood work and relevant radiologic and endoscopic studies were reviewed and discussed with the patient. Results from last 7 days Lab Units 04/10/23 0233 04/09/23 1115 04/08/23 2220 WBC AUTO 10*3/uL 10.3 17.3* 19.6* HEMOGLOBIN g/dL 9.2* 11.3* 11.3* HEMATOCRIT % 27.5* 35.0 34.4* PLATELETS AUTO 10*3/uL 95* 105* 134* Results from last 7 days Lab Units 04/10/23 0233 04/09/23 1115 04/08/23 2220 SODIUM mmol/L 134* 136 133* POTASSIUM mmol/L 3.0* 3.5 3.5 CHLORIDE mmol/L 111* 110* 105 CO2 mmol/L 20* 19* 21* BUN mg/dL 13 13 14 CREATININE mg/dL 0.97 0.89 1.11* CALCIUM mg/dL 6.4* 6.6* 7.2* PROTEIN TOTAL g/dL 4.0* 4.4* 4.6* BILIRUBIN TOTAL mg/dL 1.2 2.5* 2.7* ALK PHOS U/L 230* 256* 269* ALT U/L 109* 135* 166* AST U/L 101* 153* 290* GLUCOSE mg/dL 172* 252* 267* Results from last 7 days Lab Units 04/08/23 2220 INR 1.7* IMAGING: Exam Date/Time: 04/08/2023 23:22 Procedure: CT ABDOMEN PELVIS W CONTRAST IMPRESSION: CHEST: 1. No pulmonary artery embolus. 2. Pulmonary vascular congestion with a small left pleural effusion with compressive atelectasis and/or infiltrate. 3. Healing right rib 10 fracture with callus formation. Subtle sclerosis along the mid sternum with mild cortical irregularity likely reflects a healing fracture. ABDOMEN/PELVIS: 1. Diffuse anasarca throughout the subcutaneous fatty tissue. 2. There is an indeterminate left adrenal gland 3.1 cm nodule. Recommend follow-up MRI adrenal gland protocol when feasible. 3. Small hiatal hernia with postsurgical changes of the stomach and gastroesophageal junction 4. Cholecystectomy with extrahepatic biliary duct distention, correlate with lab values. 5. The pancreatic duct is prominent, correlate with lab values. 6. Additional findings, as above. Exam Date/Time: 04/09/2023 11:07 Procedure: US ABDOMEN COMPLETE IMPRESSION: Fatty liver, otherwise unremarkable ultrasound of the abdomen. Exam Date/Time: 04/09/2023 15:18 Procedure: MR ABDOMEN WO CONTRAST IMPRESSION: There is a 3.1 cm left adrenal gland mass. 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 ASSESSMENT: Abnormal LFTs: Mixed cholestatic/hepatocellular. Unremarkable for viral hepatitis. Consider worsening LFTs secondary to acute infection, source unknown. CBD/PD dilation. Patient is status postcholecystectomy over 20 years ago. No obvious obstructing masses seen on contrast-enhanced CT, ultrasound or MRI of the abdomen. Consider retained stones/sludge in the CBD. LFTs seem to be improving. Consider underlying ANTONIO related cirrhosis given her history, low platelets, elevated INR and low albumin. No obvious abnormal contours suggestive of cirrhosis on imaging. RLQ pain: No obvious etiology on imaging. Consider musculoskeletal, visceral hypersensitivity PLAN: Proceed with MRCP for further evaluation of the biliary tree and pancreatic duct. Already had contrast-enhanced imaging with both CT and MRI and no obvious pancreatic masses. If MRCP is unremarkable and LFTs remain elevated then proceed with full liver workup Consider outpatient FibroScan if LFTs remain elevated to rule out any underlying fibrosis/cirrhosis Consider nutrition evaluation given low albumin Monitor LFTs IV antibiotics per ID (Comment: Please note this report has been produced using speech recognition software and may contain errors related to that system including errors in grammar, punctuation, and spelling, as well as words and phrases that may be inappropriate. If there are any questions or concerns please feel free to contact the dictating provider for clarification.) Electronically signed by Wilder Sosa DO 04/10/2023 10:36 AM Associated Order(s): IP CONSULT TO INFECTIOUS DISEASES Images from the original note were not included. [facility] - Infectious Diseases [employer] CEO Consult Note Reason for Consult: Sepsis History of Present Illness: This is a 78F who presented to the ED on 04/[address] [facility] with hypotension and hyperglycemia. Pt states she was noted to be hypotensive on a routing vitals check. Prior to arrival she denied dizziness, weakness, fatigue, nausea, vomiting, diarrhea, or dysuria. She has a remote h/o breast CA s/p bilateral mastectomy with reoccurrence L chest s/p resection- not currently on therapy, appendectomy, cholecystectomy, gastric bypass, and hysterectomy. Significant PMH includes DM II, DVT, HTN, HL, and Osteoporosis. In the ED she was noted to be hypotensive 69/46, afebrile. WBC 19.6, LA 2.1, Cr 1.11, AST 290, ALT 166, Bili 2.7. CT abd/pelvis illustrating diffuse anasarca throughout the subcutaneous fatty tissue, extrahepatic biliary duct distention ,and prominent pancreatic duct. CTA chest illustrating pulmonary vascular congestion. Blood cultures collected, she was started on empiric Vanc/ Pip-Tazo, admitted for sepsis of unclear etiology. At present she c/o RLQ abdominal pain with palpation, otherwise denies new symptoms. Past Medical History: Past Medical History: Diagnosis Date Breast CA (HCC) Cerebral artery occlusion with cerebral infarction (HCC) Depression Diabetes mellitus (HCC) DVT (deep venous thrombosis) (HCC) GERD (gastroesophageal reflux disease) Hyperlipidemia Hypertension Muscle weakness-general Osteoporosis UTI (urinary tract infection) Past Surgical History: Past Surgical History: Procedure Laterality Date APPENDECTOMY BREAST LUMPECTOMY Left CHOLECYSTECTOMY GASTRIC BYPASS MASTECTOMY TONSILLECTOMY AND ADENOIDECTOMY (HISTORICAL) TOTAL ABDOMINAL HYSTERECTOMY Current Medications: Current Facility-Administered Medications Medication Dose Route Frequency Provider Last Rate Last Admin acetaminophen (Tylenol) tablet 650 mg 650 mg Oral q6h PRN Alyx M Esterle, DO Or acetaminophen (Tylenol) suppository 650 mg 650 mg Rectal q6h PRN Alyx M Esterle, DO enoxaparin (Lovenox) syringe 40 mg 40 mg SubCUTAneous Daily Alyx M Esterle, DO ondansetron ODT (Zofran-ODT) disintegrating tablet 4 mg 4 mg Oral q8h PRN Alyx M Esterle, DO Or ondansetron (Zofran) injection 4 mg 4 mg IntraVENous q6h PRN Alyx M Esterle, DO piperacillin-tazobactam (Zosyn) 3,375 mg in sodium chloride 0.9 % 50 mL IVPB Mini-Bag Plus 3,375 mg IntraVENous q8h Alyx M Esterle, DO polyethylene glycol (PEG) 3350 (Miralax) packet 17 g 17 g Oral Daily PRN Alyx M Esterle, DO sodium chloride 0.9 % infusion 5-250 mL/hr IntraVENous PRN Alyx M Esterle, DO sodium chloride 0.9 % infusion 75 mL/hr IntraVENous Continuous Alyx M Esterle, DO 75 mL/hr at 04/09/23 0018 75 mL/hr at 04/09/23 0018 sodium chloride 0.9% (NS) flush 10 mL 10 mL IntraVENous 2 times per day Alyx M Esterle, DO sodium chloride 0.9% (NS) flush 10 mL 10 mL IntraVENous PRN Alyx M Esterle, DO vancomycin IVPB 1250 mg in 250 mL NS (premix) 1,250 mg IntraVENous q24h Alyx M Esterle, DO Allergies: Allergies Allergen Reactions Aspirin Other and Swelling Lips swell Lips swell Other reaction(s): Other (See Comments) Lips swell Ibuprofen Swelling Latex Unknown Social History: Social History Socioeconomic History Marital status: Single Spouse name: Not on file Number of children: Not on file Years of education: Not on file Highest education level: Not on file Occupational History Not on file Tobacco Use Smoking status: Former Smokeless tobacco: Never Substance and Sexual Activity Alcohol use: Yes Drug use: Not Currently Sexual activity: Not on file Other Topics Concern Not on file Social History Narrative Not on file Social Determinants of Health Financial Resource Strain: Not on file Food Insecurity: Not on file Transportation Needs: No Transportation Needs (04/09/2023) PRAPARE - Transportation Lack of Transportation (Medical): No Lack of Transportation (Non-Medical): No Physical Activity: Not on file Stress: Not on file Social Connections: Not on file Intimate Partner Violence: Not At Risk (04/09/2023) Humiliation, Afraid, Rape, and Kick questionnaire Fear of Current or Ex-Partner: No Emotionally Abused: No Physically Abused: No Sexually Abused: No Housing Stability: Low Risk (04/09/2023) Housing Stability Vital Sign Unable to Pay for Housing in the Last Year: No Number of Places Lived in the Last Year: 1 Unstable Housing in the Last Year: No Family History: Family History Problem Relation Name Age of Onset Breast cancer Mother Diabetes type II Mother Review of Systems: Review of Systems Constitutional: Negative. Negative for chills, fatigue and fever. HENT: Negative. Negative for dental problem, ear pain, facial swelling, mouth sores, sinus pain, sore throat, trouble swallowing and voice change. Eyes: Negative. Negative for photophobia, discharge and visual disturbance. Respiratory: Negative. Negative for cough and shortness of breath. Cardiovascular: Negative for chest pain. Gastrointestinal: Positive for abdominal pain. Negative for diarrhea, nausea and vomiting. Endocrine: Negative. Genitourinary: Negative. Negative for dysuria, flank pain, hematuria and urgency. Musculoskeletal: Negative. Negative for back pain, joint swelling and myalgias. Skin: Negative. Negative for rash and wound. Allergic/Immunologic: Negative. Neurological: Negative. Negative for weakness. Hematological: Negative. Psychiatric/Behavioral: Negative. Vitals: Patient Vitals for the past 24 hrs: BP Temp Temp src Pulse Resp SpO2 Height Weight 04/09/23 0846 118/65 36.1 C (97 F) Temporal 84 16 99 % -- -- 04/09/23 0600 -- -- -- -- -- -- -- 75.9 kg (167 lb 4.8 oz) 04/09/23 0359 117/63 36.4 C (97.6 F) Temporal 80 18 100 % -- -- 04/09/23 0201 104/53 -- -- 93 -- -- -- -- 04/09/23 0111 (!) 85/46 36.6 C (97.9 F) Temporal 92 16 100 % -- -- 04/09/23 0035 102/65 -- -- -- -- -- -- -- 04/08/23 2345 (!) 92/48 -- -- 86 (!) 11 99 % -- -- 04/08/23 2340 88/59 -- -- 88 17 100 % -- -- 04/08/235 80/51 -- -- 89 18 100 % -- -- 04/08/232329 -- -- -- 19 100 % -- -- 04/08/232324 100/78 -- -- 90 13 100 % -- -- 04/08/232319 -- -- -- 90 17 100 % -- -- 04/08/232314 -- -- -- 84 16 95 % -- -- 04/08/232310 100/68 -- -- 89 20 100 % -- -- 04/08/232309 -- -- -- 90 22 100 % -- -- 04/08/232304 100/78 -- -- 90 22 100 % -- -- 04/08/232299 -- -- -- 81 19 98 % -- -- 04/08/232254 (!) -- -- 90 22 100 % -- -- 04/08/232249 -- -- -- 83 16 100 % -- -- 04/08/232244 -- -- -- 84 13 98 % -- -- 04/08/232242 (!) -- -- 87 14 100 % -- -- 04/08/232241 -- -- -- 89 17 100 % -- -- 04/08/232240 -- -- -- 88 14 100 % -- -- 04/08/232239 -- -- -- 89 20 (!) 78 % -- -- 04/08/232238 -- -- -- 89 16 100 % -- -- 04/08/232237 -- -- -- 93 (!) 11 100 % -- -- 04/08/232236 -- -- -- 94 19 100 % -- -- 04/08/232235 -- -- -- 91 13 100 % -- -- 04/08/232234 -- -- -- 92 20 98 % -- -- 04/08/232233 -- -- -- 93 21 98 % -- -- 04/08/232232 80/52 -- -- 93 19 100 % -- -- 04/08/232231 -- -- -- 95 -- 100 % -- -- 04/08/232230 -- -- -- 99 -- 100 % -- -- 04/08/232229 -- -- -- 100 -- 100 % -- -- 04/08/232228 -- -- -- 100 -- 100 % -- -- 04/08/232227 -- -- -- 100 -- 99 % -- -- 04/08/232226 -- -- -- 103 -- 100 % -- -- 04/08/232225 -- -- -- 101 -- 99 % -- -- 04/08/232224 -- -- -- 101 -- 100 % -- -- 04/08/232223 -- -- -- 101 -- 100 % -- -- 04/08/232222 -- -- -- 96 -- 99 % -- -- 04/08/232221 -- -- -- 97 -- 99 % -- -- 04/08/232220 -- -- -- 95 -- 99 % -- -- 04/08/232219 -- -- -- 96 -- 98 % -- -- 04/08/232218 -- -- -- 96 -- 99 % -- -- 04/08/232217 -- -- -- 97 -- 99 % -- -- 04/08/232216 -- -- -- 99 -- 98 % -- -- 04/08/232214 -- -- -- 98 -- 98 % -- -- 04/08/232213 -- -- -- 99 -- 97 % -- -- 04/08/232212 -- -- -- 99 -- 98 % -- -- 04/08/232211 -- -- -- 98 -- 98 % -- -- 04/08/232210 -- -- -- 97 -- 98 % -- -- 04/08/232209 -- -- -- 99 -- 98 % -- -- 04/08/232208 -- -- -- 97 -- 97 % -- -- 04/08/232207 -- -- -- 98 -- 98 % -- -- 04/08/232206 -- -- -- 98 -- 98 % -- -- 04/08/232205 -- -- -- 98 -- 99 % -- -- 04/08/232204 -- -- -- 97 -- 98 % -- -- 04/08/232203 -- -- -- 98 -- 96 % -- -- 04/08/232202 -- -- -- 100 -- (!) 89 % -- -- 04/08/232201 -- -- -- 99 -- (!) 89 % -- -- 04/08/232200 -- -- -- 99 -- 91 % -- -- 04/08/232199 -- -- -- 101 -- -- -- -- 04/08/232158 -- -- -- 100 -- -- -- -- 04/08/232157 -- -- -- 100 -- 91 % -- -- 04/08/232156 -- -- -- 100 -- 95 % -- -- 04/08/232155 -- -- -- 102 -- 98 % -- -- 04/08/232154 -- -- -- 100 -- 96 % -- -- 04/08/232153 -- -- -- 100 -- 97 % -- -- 04/08/232151 (!) 69/46 36.6 C (97.8 F) Oral 99 16 97 % 1.6 m (5' 3 ) 79.4 kg (175 lb) Physical Exam: Physical Exam Vitals and nursing note reviewed. Constitutional: General: She is awake. She is not in acute distress. Appearance: Normal appearance. She is obese. She is not toxic-appearing. Comments: Laying in bed in no acute distress HENT: Head: Normocephalic and atraumatic. Right Ear: External ear normal. Left Ear: External ear normal. Nose: Nose normal. Mouth/Throat: Mouth: Mucous membranes are dry. Pharynx: Oropharynx is clear. Eyes: Extraocular Movements: Extraocular movements intact. Conjunctiva/sclera: Conjunctivae normal. Pupils: Pupils are equal, round, and reactive to light. Cardiovascular: Rate and Rhythm: Normal rate and regular rhythm. Heart sounds: Normal heart sounds. Pulmonary: Effort: Pulmonary effort is normal. Breath sounds: Normal breath sounds. Comments: Unlabored effort on RA Abdominal: General: Bowel sounds are normal. There is distension. Palpations: Abdomen is soft. Tenderness: There is abdominal tenderness (RLQ sharp pain : with deep palpation). There is no right CVA tenderness or left CVA tenderness. Musculoskeletal: General: No swelling or tenderness. Normal range of motion. Cervical back: Normal range of motion and neck supple. Lymphadenopathy: Cervical: No cervical adenopathy. Skin: General: Skin is warm and dry. Findings: No rash. Neurological: General: No focal deficit present. Mental Status: She is alert and oriented to person, place, and time. Psychiatric: Mood and Affect: Mood normal. Behavior: Behavior normal. Behavior is cooperative. Labs: Recent Labs 04/08/23 2220 NA 133* K 3.5 CL 105 CO2 21* BUN 14 CREATININE 1.11* GLUCOSE 267* CALCIUM 7.2* PROT 4.6* BILITOT 2.7* ALKPHOS 269* AST 290* ALT 166* Recent Labs 04/08/23 2220 WBC 19.6* HGB 11.3* HCT 34.4* PLT 134* LYMPHOPCT 4.2* MONOPCT 6.2 BASOPCT 0.0 NEUTROABS 17.5* Micro: No results for input(s): COVID19 in the last 72 hours. 04/08 blood cx x 2- in process 04/08 COVID/Fluid/RSV- negative Lines: PIV Radiography/Echo/Other: 04/08 CTA C/A/P- IMPRESSION: CHEST: 1. No pulmonary artery embolus. 2. Pulmonary vascular congestion with a small left pleural effusion with compressive atelectasis and/or infiltrate. 3. Healing right rib 10 fracture with callus formation. Subtle sclerosis along the mid sternum with mild cortical irregularity likely reflects a healing fracture. ABDOMEN/PELVIS: 1. Diffuse anasarca throughout the subcutaneous fatty tissue. 2. There is an indeterminate left adrenal gland 3.1 cm nodule. Recommend follow-up MRI adrenal gland protocol when feasible. 3. Small hiatal hernia with postsurgical changes of the stomach and gastroesophageal junction 4. Cholecystectomy with extrahepatic biliary duct distention, correlate with lab values. 5. The pancreatic duct is prominent, correlate with lab values. 6. Additional findings, as above. Antimicrobials,Start/End Dates: Vancomycin 04/08- Pip-Tazo 04/08- Impression: Severe Sepsis (POA), ? Intra abdominal etiology - extrahepatic biliary duct dilation on CT but normal biliary duct on abd US - RLQ abdominal pain - h/o appendectomy/ cholecystectomy 2. Hypotension- responsive to fluid resucitation 3. Leukocytosis/ Lactic Acidosis 4. Transaminitis 5. Anemia/ Thrombocytopenia 6. H/o Breast CA s/p bilateral mastectomy, L chest wall resection, not currently on therapy Plan: Continue Vanc/ Pip-Tazo Checked RUQ US which showed no intra hepatic duct dilatation and normal CBD Check hepatitis studies, pro kana Follow blood cultures Monitor infectious parameters ID will continue to follow Discussed with Dr Zaki Haines covering the weekend, please call with questions or concerns. Total time 60 minutes on this day of encounter includes counseling, coordinating plan of care, record and documentation review before and after visit including documentation and time not explicitly included on EMR time stamp for accounting for open encounter. 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 year old female ordered vancomycin for sepsis; consult from Dr. Sheets to manage therapy. Patient Active Problem List Diagnosis Date Noted GERD (gastroesophageal reflux disease) 06/09/2018 Hyperlipidemia 06/09/2018 Depression 06/09/2018 Diabetes mellitus (HCC) 06/09/2018 Sepsis (HCC) 04/08/2023 Hypotension 06/07/2018 Near syncope 06/07/2018 Aspirin, Ibuprofen, and Latex CREATININE Date Value Ref Range Status 04/08/2023 1.11 (H) 0.52 - 1.04 mg/dL Final UREA NITROGEN Date Value Ref Range Status 04/08/2023 14 7 - 17 mg/dL Final Auto WBC Date Value Ref Range Status 04/08/2023 19.6 (H) 3.6 - 10.7 10*3/uL Final Ht Readings from Last 1 Encounters: 04/08/23 1.6 m (5' 3 ) Wt Readings from Last 1 Encounters: 04/08/23 79.4 kg (175 lb) Plan: Will initiate vancomycin 1250 mg IV every 24 hours based on predicted AUC of 522 mg/L.hr . Goal AUC is 400-600 mg/L.hr. Random level will be scheduled for 04-09 0600. Thank you for the consult. Will continue to follow. documented in this encounter [facility] 04-10-2023 Consult note Associated Order (s): IP CONSULT TO GI Images from the original note were not included. GASTROENTEROLOGY CONSULTATION REASON FOR CONSULT: The patient was seen in consultation at the request of Dr. Sheets re: Transaminitis HISTORY OF PRESENT ILLNESS: The patient is a 78 y.o. female with past medical history as listed below who presents with hypotension and hyperglycemia. Noted to have an elevated WBC 19.6, LA 2.1, abnormal LFTs as noted below. Admitted for sepsis of unknown etiology. Seen by ID and started on vancomycin and Zosyn. Contrast-enhanced CT significant for extrahepatic biliary duct dilation and mild pancreatic duct dilation. No reported pancreatic lesions or masses. Patient is status postcholecystectomy and has a known history of gastric bypass by history. Hemodynamically stable and afebrile this morning. Denies any nausea, vomiting, abdominal pain, jaundice, pruritus. No prior history of chronic liver disease. Denies any history of alcohol use. PAST MEDICAL HISTORY: Past Medical History: Diagnosis Date Breast CA (HCC) Cerebral artery occlusion with cerebral infarction (HCC) Depression Diabetes mellitus (HCC) DVT (deep venous thrombosis) (HCC) GERD (gastroesophageal reflux disease) Hyperlipidemia Hypertension Muscle weakness-general Osteoporosis UTI (urinary tract infection) PAST SURGICAL HISTORY: Past Surgical History: Procedure Laterality Date APPENDECTOMY BREAST LUMPECTOMY Left CHOLECYSTECTOMY GASTRIC BYPASS MASTECTOMY TONSILLECTOMY AND ADENOIDECTOMY (HISTORICAL) TOTAL ABDOMINAL HYSTERECTOMY SOCIAL HISTORY: TOBACCO: Social History Tobacco Use Smoking Status Former Smokeless Tobacco Never ETOH: Alcohol Use: Not At Risk (04/09/2023) AUDIT-C Frequency of Alcohol Consumption: 2-4 times a month Average Number of Drinks: Patient does not drink Frequency of Binge Drinking: Never DRUGS: Social History Substance and Sexual Activity Drug Use Not Currently FAMILY HISTORY: Family History Problem Relation Name Age of Onset Breast cancer Mother Diabetes type II Mother MEDICATIONS PRIOR TO ADMISSION: Current Outpatient Medications Medication Instructions acetaminophen (TYLENOL) 650 mg, Oral, Every 6 hours PRN apixaban (ELIQUIS) 5 mg, Oral, 2 times daily bisacodyl (DULCOLAX) 10 mg, Rectal, Daily PRN bisacodyl (DULCOLAX) 5 mg, Oral, Daily PRN, Do not crush, chew, or split. Calcium Carb-Cholecalciferol (Calcium 600/Vitamin D) 600-10 MG-MCG tablet 2 tablets, Oral, 2 time daily camphor-phenol (Campho-Phenique) 10.8-4.7 % liquid 2 Applications, Topical, 2 times daily PRN carboxymethylcellulose (Refresh Plus) 0.5 % ophthalmic solution 1 drop, Both Eyes, 3 times daily PRN Cholecalciferol (VITAMIN D-[address] PO) 1 tablet, Oral, Daily cyanocobalamin (VITAMIN B-12) 1,000 mcg, Oral, Daily D-Mannose 500 MG capsule 1 tablet, Oral, 3 times daily docusate sodium (COLACE) 100 mg, Oral, Daily estradiol (ESTRACE) 2 g, Vaginal, 3 times weekly, Wednesday at night exemestane (AROMASIN) 25 mg, Oral, Daily, Take after a meal. Try to take at the same time each day. FLUoxetine (PROZAC) 10 mg, Oral, Daily insulin glargine (LANTUS) 16 Units, SubCUTAneous, Nightly levothyroxine (SYNTHROID, LEVOXYL) 25 mcg, Oral, Daily before breakfast Magnesium Hydroxide (MILK OF MAGNESIA PO) 30 mg, Oral, Daily PRN Melatonin 5 mg, Oral, Nightly PRN omeprazole (PRILOSEC) 20 mg, Oral, Daily, Do not crush or chew. oxybutynin XL (DITROPAN-XL) 15 mg, Oral, Daily, Do not crush, chew, or split. Probiotic Product (GuestShots) 170 MG capsule 1 capsule, Oral, Daily simethicone (MYLICON) 80 mg, Oral, Every 6 hours PRN traMADol (ULTRAM) 50 mg, Oral, Every 6 hours PRN CURRENT MEDICATIONS: Current Facility-Administered Medications: acetaminophen (Tylenol) tablet 650 mg, 650 mg, Oral, q6h PRN OR acetaminophen (Tylenol) suppository 650 mg, 650 mg, Rectal, q6h PRN, Alyx M Esterle, DO apixaban (Eliquis) tablet 5 mg, 5 mg, Oral, BID, Alyx M Esterle, DO, 5 mg at 04/10/2357 bisacodyl (Dulcolax) suppository 10 mg, 10 mg, Rectal, Daily PRN, Alyx M Esterle, DO carboxymethylcellulose PF (Refresh Plus) 0.5 % ophthalmic solution 1 drop, 1 drop, Both Eyes, TID PRN, Alyx M Esterle, DO dextrose 5 % infusion, 100 mL/hr, IntraVENous, PRN, Alyx M Esterle, DO dextrose 50 % solution 12.5 g, 12.5 g, IntraVENous, PRN, Alyx M Esterle, DO exemestane (Aromasin) chemo tablet 25 mg, 25 mg, Oral, Daily, Alyx M Esterle, DO, 25 mg at 04/10/23857 FLUoxetine (PROzac) capsule 10 mg, 10 mg, Oral, Daily, Alyx M Esterle, DO, 10 mg at 04/10/23857 glucagon (human recombinant) injection 1 mg, 1 mg, IntraMUSCular, PRN, Alyx M Esterle, DO glucose oral gel 15 g, 15 g, Oral, PRN, Alyx M Esterle, DO insulin glargine (Lantus) injection 16 Units, 16 Units, SubCUTAneous, Nightly, Alyx M Esterle, DO, 16 Units at 04/09/232035 Insulin Lispro (Humalog) injection 0-12 Units, 0-12 Units, SubCUTAneous, TID WC, 1 Units at 04/10/23852 AND Insulin Lispro (Humalog) injection 0-12 Units, 0-12 Units, SubCUTAneous, Nightly, Alyx M Esterle, DO, 8 Units at 04/09/232036 levothyroxine (Synthroid, Levoxyl) tablet 25 mcg, 25 mcg, Oral, qAM AC, Alyx M Esterle, DO, 25 mcg at 04/10/23603 Melatonin disintegrating tablet 5 mg, 5 mg, Oral, Nightly, Alyx M Esterle, DO, 5 mg at 04/09/232034 ondansetron ODT (Zofran-ODT) disintegrating tablet 4 mg, 4 mg, Oral, q8h PRN OR ondansetron (Zofran) injection 4 mg, 4 mg, IntraVENous, q6h PRN, Alyx M Esterle, DO pantoprazole (ProtoNix) EC tablet 40 mg, 40 mg, Oral, qAM AC, Alyx M Esterle, DO, 40 mg at 04/10/23 0604 piperacillin-tazobactam (Zosyn) 3,375 mg in sodium chloride 0.9 % 50 mL IVPB Mini-Bag Plus, 3,375 mg, IntraVENous, q8h, Alyx M Esterle, DO, Last Rate: 12.5 mL/hr at 04/10/23 0606, 3,375 mg at 04/10/23 0606 polyethylene glycol (PEG) 3350 (Miralax) packet 17 g, 17 g, Oral, Daily PRN, Alyx M Esterle, DO potassium chloride CR (Klor-Con M20) ER tablet 40 mEq, 40 mEq, Oral, Once, Aylx M Esterle, DO sodium chloride 0.9 % infusion, 5-250 mL/hr, IntraVENous, PRN, Alyx M Esterle, DO sodium chloride 0.9 % infusion, 75 mL/hr, IntraVENous, Continuous, Alyx M Esterle, DO, Last Rate: 75 mL/hr at 04/10/23 0236, 75 mL/hr at 04/10/23 0236 sodium chloride 0.9 % infusion, 100 mL/hr, IntraVENous, Continuous, Alyx M Esterle, DO, Last Rate: 100 mL/hr at 04/10/23 0852, 100 mL/hr at 04/10/23851 sodium chloride 0.9% (NS) flush 10 mL, 10 mL, IntraVENous, 2 times per day, Alyx M Esterle, DO, 10 mL at 04/09/232037 sodium chloride 0.9% (NS) flush 10 mL, 10 mL, IntraVENous, PRN, Alyx M Esterle, DO traMADol (Ultram) tablet 50 mg, 50 mg, Oral, q6h PRN, Alyx M Esterle, DO trospium (Sanctura) tablet 20 mg, 20 mg, Oral, Daily, Alyx M Esterle, DO, 20 mg at 04/10/23 0857 vancomycin IVPB 1250 mg in 250 mL NS (premix), 1,250 mg, IntraVENous, q24h, Alyx Alcocer EnedinaallisonDO, Stopped at 04/10/23 0015 ALLERGIES: Allergies Allergen Reactions Aspirin Other and Swelling Lips swell Lips swell Other reaction(s): Other (See Comments) Lips swell Ibuprofen Swelling Latex Unknown REVIEW OF SYMPTOMS: Ten-point review of symptoms was noted and reviewed in the chart. PHYSICAL EXAM VS:vBP 115/61 (BP Location: Right arm, Patient Position: Lying) Pulse 89 Temp 36.3 C (97.3 F) (Temporal) Resp 16 Ht 5' 3 (1.6 m) Wt 174 lb 6.1 oz (79.1 kg) SpO2 100% BMI 30.89 kg/m Body mass index is 30.89 kg/m . GENERAL: Pleasant and NAD. HEENT: Scleral anicteric. Oropharhynx clear with no erythema or exudate. CV: RRR, NL S1/S2, no murmurs. LUNGS: CTA b/l. No W/R/R. ABDOMEN: ,soft, RLQ tenderness to deep palpation and non-distended, + BS. No hepatosplenomegaly. No mass felt. No rebound or guarding. No hernia. SKIN: No obvious skin lesions or rashes NEURO: A&O x 3, No obvious focal deficits. LABS AND IMAGING: Recent blood work and relevant radiologic and endoscopic studies were reviewed and discussed with the patient. Results from last 7 days Lab Units 04/10/23 0233 04/09/23 1115 04/08/23 2220 WBC AUTO 10*3/uL 10.3 17.3* 19.6* HEMOGLOBIN g/dL 9.2* 11.3* 11.3* HEMATOCRIT % 27.5* 35.0 34.4* PLATELETS AUTO 10*3/uL 95* 105* 134* Results from last 7 days Lab Units 04/10/23 0233 04/09/23 1115 04/08/23 2220 SODIUM mmol/L 134* 136 133* POTASSIUM mmol/L 3.0* 3.5 3.5 CHLORIDE mmol/L 111* 110* 105 CO2 mmol/L 20* 19* 21* BUN mg/dL 13 13 14 CREATININE mg/dL 0.97 0.89 1.11* CALCIUM mg/dL 6.4* 6.6* 7.2* PROTEIN TOTAL g/dL 4.0* 4.4* 4.6* BILIRUBIN TOTAL mg/dL 1.2 2.5* 2.7* ALK PHOS U/L 230* 256* 269* ALT U/L 109* 135* 166* AST U/L 101* 153* 290* GLUCOSE mg/dL 172* 252* 267* Results from last 7 days Lab Units 04/08/23 2220 INR 1.7* IMAGING: Exam Date/Time: 04/08/2023 23:22 Procedure: CT ABDOMEN PELVIS W CONTRAST IMPRESSION: CHEST: 1. No pulmonary artery embolus. 2. Pulmonary vascular congestion with a small left pleural effusion with compressive atelectasis and/or infiltrate. 3. Healing right rib 10 fracture with callus formation. Subtle sclerosis along the mid sternum with mild cortical irregularity likely reflects a healing fracture. ABDOMEN/PELVIS: 1. Diffuse anasarca throughout the subcutaneous fatty tissue. 2. There is an indeterminate left adrenal gland 3.1 cm nodule. Recommend follow-up MRI adrenal gland protocol when feasible. 3. Small hiatal hernia with postsurgical changes of the stomach and gastroesophageal junction 4. Cholecystectomy with extrahepatic biliary duct distention, correlate with lab values. 5. The pancreatic duct is prominent, correlate with lab values. 6. Additional findings, as above. Exam Date/Time: 04/09/2023 11:07 Procedure: US ABDOMEN COMPLETE IMPRESSION: Fatty liver, otherwise unremarkable ultrasound of the abdomen. Exam Date/Time: 04/09/2023 15:18 Procedure: MR ABDOMEN WO CONTRAST IMPRESSION: There is a 3.1 cm left adrenal gland mass. 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 ASSESSMENT: Abnormal LFTs: Mixed cholestatic/hepatocellular. Unremarkable for viral hepatitis. Consider worsening LFTs secondary to acute infection, source unknown. CBD/PD dilation. Patient is status postcholecystectomy over 20 years ago. No obvious obstructing masses seen on contrast-enhanced CT, ultrasound or MRI of the abdomen. Consider retained stones/sludge in the CBD. LFTs seem to be improving. Consider underlying ANTONIO related cirrhosis given her history, low platelets, elevated INR and low albumin. No obvious abnormal contours suggestive of cirrhosis on imaging. RLQ pain: No obvious etiology on imaging. Consider musculoskeletal, visceral hypersensitivity PLAN: Proceed with MRCP for further evaluation of the biliary tree and pancreatic duct. Already had contrast-enhanced imaging with both CT and MRI and no obvious pancreatic masses. If MRCP is unremarkable and LFTs remain elevated then proceed with full liver workup Consider outpatient FibroScan if LFTs remain elevated to rule out any underlying fibrosis/cirrhosis Consider nutrition evaluation given low albumin Monitor LFTs IV antibiotics per ID (Comment: Please note this report has been produced using speech recognition software and may contain errors related to that system including errors in grammar, punctuation, and spelling, as well as words and phrases that may be inappropriate. If there are any questions or concerns please feel free to contact the dictating provider for clarification.) Electronically signed by Wilder Sosa DO 04/10/2023 10:36 AM [facility] 04-10-2023 Note Formatting of this n ote might be different from the original. DC plan Return to [facility]- [facility]- no auth needed. Messaged Dr Sheets to update on the above and inquire if pt planned for dc either today vs tomorrow. Received message back from Dr. Khushboo clark plans for weekend dc- pt septic and awaiting culture results. TCC will continue to follow for add'l needs for dc. [facility] 04-10-2023 Note Formatting of this n ote might be different from the original. DC plan Return to [facility]- [facility]- no auth needed. Messaged Dr Sheets to update on the above and inquire if pt planned for dc either today vs tomorrow. Received message back from Dr. Khushboo clark plans for weekend dc- pt septic and awaiting culture results. TCC will continue to follow for add'l needs for dc. [facility] 04-09-2023 Plan of care note The patient is Moderately Stable - Low risk of patient condition declining or worsening The patient's goals for the shift include feel better The clinical goals for the shift include resolve hypotension O [facility] 04-09-2023 Note PHYSICAL THERAPY [facility] Initial Evaluation Name/MRN: Christa Stout ([id number]) Evaluation Date: 04/09/2023 Date of : 1945 Admission Date: 04/08/2023 9:44 PM Age: 78 y.o. Room/Bed: [facility] A Discharge Recommendation: ECF with PT Equipment Needed: No Assessment IMPRESSION: Pt admitted 04/08 with hypotension from ECF. She was recently diagnosed with DVT, CTA (-) for PE. At baseline stand-pivots to wheelchair at [facility], does not propel herself. She reports sometimes can do it IND, othertimes needs assist. She demo bed mobility mod A, transfer to W max x1. She would benefit from PT when return to ECF Diagnosis: hypotension Prognosis: good Performance Deficits /Impairments: Decreased Functional Mobility, Decreased Strength, Decreased Safety Awareness, Decreased Endurance, and Decreased Balance Decision Making: Medium Complexity Subjective Per RN pt okay for therapy, is pleasant and agree to PT Pain: Pt denies any current pain. Past Medical History: Past Medical History: Diagnosis Date Breast CA (HCC) Cerebral artery occlusion with cerebral infarction (HCC) Depression Diabetes mellitus (HCC) DVT (deep venous thrombosis) (HCC) GERD (gastroesophageal reflux disease) Hyperlipidemia Hypertension Muscle weakness-general Osteoporosis UTI (urinary tract infection) Past Surgical History: Past Surgical History: Procedure Laterality Date APPENDECTOMY BREAST LUMPECTOMY Left CHOLECYSTECTOMY GASTRIC BYPASS MASTECTOMY TONSILLECTOMY AND ADENOIDECTOMY (HISTORICAL) TOTAL ABDOMINAL HYSTERECTOMY Admission Diagnosis: Patient Active Problem List Diagnosis Date Noted GERD (gastroesophageal reflux disease) 06/09/2018 Hyperlipidemia 06/09/2018 Depression 06/09/2018 Diabetes mellitus (HCC) 06/09/2018 Sepsis (HCC) 04/08/2023 Hypotension 06/07/2018 Near syncope 06/07/2018 Medical Precautions: No active isolations Proper PPE donned/doffed in accordance with facility standards. Fall Risk: [place] Fall Risk Score: 60 (High Risk) Precautions/Restrictions: N/A Family/Caregiver Present: none Overall Cognitive Status: Exceptions - Following commands: follows multi-step commands consistently - Safety judgement: decreased awareness of need for safety - Problem solving: assistance required to generate solutions, assistance required to implement solutions, assistance required to identify errors made, assistance required to correct errors made, and decreased awareness of errors - Initiation: requires cues for some - Sequencing: requires cues for some Overall Orientation Status: Oriented x4 Vision: no visual deficits Hearing: normal Social/Functional History Patient admitted from SNF. Assistive Equipment: wheelchair - manual Prior Level of Function ADL Assistance: Needs Assist Ambulation Assistance: Non-Ambulatory Transfer Assistance: reports sometimes IND, other times needs assist Objective Lower Extremity Assessment AROM: WFL PROM: Not assessed this session Strength: Exceptions: grossly decreased Bed Mobility: Supine to sit: Mod Assist, Pt demo bed mobility mod A to manage trunk to EOB. She sits with CGA. She return to supine with mod A to manage BLE Sit to supine: Mod Assist Transfers Sit to stand: Max Assist, Pt complete transfer to FWW with max x1. Therapist cues pt for hand and foot placement, she stands ~10 sec with retro lean, demo increased fatigue. She return to sit with max x1 to control eccentric lower Stand to sit: Max Assist Ambulation Did not assess this session. Outcome Measures AM-PAC How much HELP from another person do you currently need Turning from your back to your side while in a flat bed without using bedrails?: A Little Moving from lying on your back to sitting on the side of a flat bed without using bedrails?: A Lot Moving to and from a bed to a chair (including a wheelchair)?: A Lot Standing up from a chair using your arms (wheelchair or bedside chair)?: A Lot Walking in a hospital room?: Total Stair climbing assessed?: No AM-PAC Inpatient Mobility Raw Score (No Stairs) : 10 [facility] Plan Pt would benefit from skilled acute PT services to address Strengthening, Balance Training, Functional Mobility Training, Endurance Training, Wheelchair Mobility Training, Pain Management, Safety Education and Training, Patient/Caregiver Training, Equipment Evaluation/Education, and Positioning. Frequency: 5 visits during current hospital admission or until additional recommendations are made Barriers: None Safety/Education Safety Safety Devices in place: All fall risk precautions in place, call light within reach, left in bed, gait belt, patient at risk for falls, and nurse notified Restraints: No Education Education Given To: patient Education Provided: PT Role, PT Goals, Plan of Care, Precautions, Transfer Training, Energy Conservation, Equipment, Fall Prevention Educatio (more content not included)... [facility] 04-09-2023 Note Formatting of this n ote might be different from the original. Weekend dc form ( ambulance form) placed on the chart in the event patient is ready for dc this weekend to [facility]. [facility] 04-09-2023 Note Formatting of this n ote might be different from the original. Weekend dc form ( ambulance form) placed on the chart in the event patient is ready for dc this weekend to [facility]. [facility] 04-09-2023 Note Referral placed to april duckworth back to [facility] via [facility] per T[facility] request. Await review and response regarding ability to accept. TCC notified. [facility] 04-09-2023 Note Formatting of this n ote might be different from the original. Care Managment Initial Assessment Date: 04/09/2023 Patient Name: Christa Stout : 1945 Patient Information Source of Information: Patient Safety And Occupational Health Manager Name/Contact Information: Cornell Stout (Child) [phone] Cognition/Language: Confused at baseline Permission given to speak with patient regional sales representative/caregiver as indicated: Confirmation of Payer with patient/family: Yes Payer Name: [facility] Medicaid : No Confirmation of Primary Care Physician: Confirmed PCP Name: Amalia Cuevas Seen in last 2 years?: Yes Primary Caregiver: Other (Comment) ([facility] staff) If assistance needed, confirmed caregiver ready, willing and able to care for patient at discharge: Confirmed with: Living Arrangements Current Residence: Number of Floors Number of Entry Steps: Bed/Bath Levels: Facility: [facility] Facility Name: [facility] Plan to Return: Yes Lives with: Other (Comment) Support Systems: Children Activities of Daily Living Ambulation: Total Care Bathing/Dressing: Total Care Elimination/Continence/Toileting: Total Care Feeding: Independent Who Assists with Activities of Daily Living: ECF staff Instrumental Activities of Daily Living Prescription Coverage: Yes Pharmacy Used: Pharmacy via ECF Medication Management: Assistance Type: Dose packaging system Who assists with medication securing and setup?: ECF staff Transportation/Shopping: Transportation Mode: Needs Assistance with Transportation at Discharge: No Meal Preparation: Assistance Provider Meal Prep Assistance Provider Name: ECF staff Laundry/Cleaning: Assistance Provider Laundry/Cleaning Assistance Provider Name: [facility] staff Finances/Bill Paying: Assistance Provider Finances/Bill Payer Assistance Provider Name: Son Communication: Independent Types of Care Services/Equipment Utilized Care Services: Dialysis Type: NA Durable Medical Equipment: Wheelchair (standard or power) Patient's Goal/Discharge Plan Patient expects to be discharged to: [facility] Discharge Planning Actions: Continue to follow Patient's Choice Rights and [employer] and Collaborative Relationships Disclosed as Indicated for Post-Acute Care: Interdisciplinary Team Engagement: Social Work Referral for: Additional Information: Spoke with patient at bedside and sonCornell via phone. Introduced self and role. Discharge planning needs discussed. Patient in hospital due to sepsis. Patient on 2 IV antibiotics, positive blood cultures. WBC elevated. ID consulted. Per son, patient resident at [facility] for about 5 years. Task [facility] to [facility] above [facility]. Patient is a bed hold, will not needs auth, will need a Covid test day of discharge. TCC will continue to follow. Trudi Hutchison RN [facility] 04-09-2023 Note Formatting of this n ote might be different from the original. Care Managment Initial Assessment Date: 04/09/2023 Patient Name: Christa Stout : 1945 Patient Information Source of Information: Patient Safety And Occupational Health Manager Name/Contact Information: Cornell Stout (Child) [phone] Cognition/Language: Confused at baseline Permission given to speak with patient regional sales representative/caregiver as indicated: Confirmation of Payer with patient/family: Yes Payer Name: [facility] Medicaid [place]: No Confirmation of Primary Care Physician: Confirmed PCP Name: Amalia Cuevas Seen in last 2 years?: Yes Primary Caregiver: Other (Comment) ([facility] staff) If assistance needed, confirmed caregiver ready, willing and able to care for patient at discharge: Confirmed with: Living Arrangements Current Residence: Number of Floors Number of Entry Steps: Bed/Bath Levels: Facility: [facility] Facility Name: [facility] Plan to Return: Yes Lives with: Other (Comment) Support Systems: Children Activities of Daily Living Ambulation: Total Care Bathing/Dressing: Total Care Elimination/Continence/Toileting: Total Care Feeding: Independent Who Assists with Activities of Daily Living: ECF staff Instrumental Activities of Daily Living Prescription Coverage: Yes Pharmacy Used: Pharmacy via ECF Medication Management: Assistance Type: Dose packaging system Who assists with medication securing and setup?: ECF staff Transportation/Shopping: Transportation Mode: Needs Assistance with Transportation at Discharge: No Meal Preparation: Assistance Provider Meal Prep Assistance Provider Name: ECF staff Laundry/Cleaning: Assistance Provider Laundry/Cleaning Assistance Provider Name: [facility] staff Finances/Bill Paying: Assistance Provider Finances/Bill Payer Assistance Provider Name: Son Communication: Independent Types of Care Services/Equipment Utilized Care Services: Dialysis Type: NA Durable Medical Equipment: Wheelchair (standard or power) Patient's Goal/Discharge Plan Patient expects to be discharged to: [facility] Discharge Planning Actions: Continue to follow Patient's Choice Rights and [employer] and Collaborative Relationships Disclosed as Indicated for Post-Acute Care: Interdisciplinary Team Engagement: Social Work Referral for: Additional Information: Spoke with patient at bedside and sonCornell via phone. Introduced self and role. Discharge planning needs discussed. Patient in hospital due to sepsis. Patient on 2 IV antibiotics, positive blood cultures. WBC elevated. ID consulted. Per son, patient resident at [facility] for about 5 years. Task sent to [facility] via [facility] to place return referral to above facility. Patient is a bed hold, will not needs auth, will need a Covid test day of discharge. TCC will continue to follow. Trudi Hutchison RN [facility] 04-09-2023 Note Department of Family Medicine Attending History and Physical CHIEF COMPLAINT: hypotension hyperglycemia Reason for Admission: sepsis History Obtained From: medical records History of Present Illness Christa Stout is a 78 y.o. who presents to the emergency department with concern for hypotension and hyperglycemia. [facility] with reported hyperglycemia in the 400s and hypotension noted approximately 80s over 60s. Patient is denying any further complaints today. She specifically denies any further abdominal pain, nausea, vomiting, fevers, chills. No complaints of chest pain or shortness of breath. 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 Arrives via paramedics with IV fluids running. Her workup didn't showanything however it appears she is septic with anasarca within the abdomen and increased liver enzymes. She is being placed on iv zosyn and vanco and admitted for further workup Past Medical History: Past Medical History: Diagnosis Date Breast CA (HCC) Cerebral artery occlusion with cerebral infarction (HCC) Depression Diabetes mellitus (HCC) DVT (deep venous thrombosis) (HCC) GERD (gastroesophageal reflux disease) Hyperlipidemia Hypertension Muscle weakness-general Osteoporosis UTI (urinary tract infection) Past Surgical History: Past Surgical History: Procedure Laterality Date APPENDECTOMY BREAST LUMPECTOMY Left CHOLECYSTECTOMY GASTRIC BYPASS MASTECTOMY TONSILLECTOMY AND ADENOIDECTOMY (HISTORICAL) TOTAL ABDOMINAL HYSTERECTOMY Medications Prior to Admission: No medications prior to admission. Allergies: Aspirin, Ibuprofen, and Latex Social History: Social History Socioeconomic History Marital status: Single Tobacco Use Smoking status: Former Smokeless tobacco: Never Substance and Sexual Activity Alcohol use: Yes Drug use: Not Currently Social Determinants of Health Transportation Needs: No Transportation Needs (04/09/2023) PRAPARE - Transportation Lack of Transportation (Medical): No Lack of Transportation (Non-Medical): No Intimate Partner Violence: Not At Risk (04/09/2023) Humiliation, Afraid, Rape, and Kick questionnaire Fear of Current or Ex-Partner: No Emotionally Abused: No Physically Abused: No Sexually Abused: No Housing Stability: Low Risk (04/09/2023) Housing Stability Vital Sign Unable to Pay for Housing in the Last Year: No Number of Places Lived in the Last Year: 1 Unstable Housing in the Last Year: No Family History: Family History Problem Relation Name Age of Onset Breast cancer Mother Diabetes type II Mother REVIEW OF SYSTEMS: Review of Systems 10 point ros negative except for hpi Objective Vitals: BP 118/65 Pulse 84 Temp 36.1 ?C (97 ?F) (Temporal) Resp 16 Ht 5' 3 (1.6 m) Wt 167 lb 4.8 oz (75.9 kg) SpO2 99% BMI 29.64 kg/m? Physical Exam Pt is alert and oiriented x 3 Heent wnl Heart regular Lungs ctab Abd benign Ext no edema Assessment/Plan Patient Active Problem List Diagnosis GERD (gastroesophageal reflux disease) Hyperlipidemia Depression Diabetes mellitus (HCC) Hypotension Near syncope Sepsis (HCC) Sepsis Hypotension Lactic acidosis Transaminitis Anemia Plan Admit to med tele Consult ID Consult GI Ib zosyn and vanco Monitor cultures ALYX SHEETS DO 04/09/23 10:13 AM [facility] 04-09-2023 Note Formatting of this n ote might be different from the original. Referral placed to return back to [facility] via [facility] per [facility] request. Await review and response regarding ability to accept. TCC notified. [facility] 04-09-2023 Note Formatting of this n ote might be different from the original. Referral placed to return back to [facility] via [facility] per TCC request. Await review and response regarding ability to accept. [facility] notified. [facility] 04-09-2023 Note OCCUPATIONAL THERAPY [facility] Initial Evaluation Name/MRN: Christa Stout ([id number]) Evaluation Date: 04/10/2023 Date of : 1945 Admission Date: 04/08/2023 9:44 PM Age: 78 y.o. Room/Bed: B2-251/B2-251 A Discharge Recommendation: ECF with OT Equipment Needed: No (TBD at next level of care) Assessment IMPRESSION: Pt admitted 04/08 with hypotension from ECF. Pt found to have pleural effusion and sepsis. Pt requires assist with some ADLs at baseline and completed SPT with one person assist to w/c. At time of eval, pt is min-total A with ADLs and mod A for bed mobility. Pt attempting to complete transfer, however unsuccessful d/t weakness despite max A. Pt is limited by weakness, balance deficits, and poor activity tolerance. Pt is functioning below baseline and would benefit from skilled OT services to maximize safety and independence with ADLs and functional mobility. Rec return to SNF with OT. Performance Deficits /Impairments: Decreased Functional Mobility, Decreased ADL status, Decreased Strength, Decreased Endurance, and Decreased Balance Prognosis: Fair Decision Making: Medium Complexity Subjective Pt supine in bed at arrival. Pt ok to see per RN. PIV, and tele in tact. Pt was pleasant and agreeable to OT eval. Pain: Pt denies any current pain. Past Medical History: Past Medical History: Diagnosis Date Breast CA (HCC) Cerebral artery occlusion with cerebral infarction (HCC) Depression Diabetes mellitus (HCC) DVT (deep venous thrombosis) (HCC) GERD (gastroesophageal reflux disease) Hyperlipidemia Hypertension Muscle weakness-general Osteoporosis UTI (urinary tract infection) Past Surgical History: Past Surgical History: Procedure Laterality Date APPENDECTOMY BREAST LUMPECTOMY Left CHOLECYSTECTOMY GASTRIC BYPASS MASTECTOMY TONSILLECTOMY AND ADENOIDECTOMY (HISTORICAL) TOTAL ABDOMINAL HYSTERECTOMY Admission Diagnosis: Patient Active Problem List Diagnosis Date Noted GERD (gastroesophageal reflux disease) 06/09/2018 Hyperlipidemia 06/09/2018 Depression 06/09/2018 Diabetes mellitus (HCC) 06/09/2018 Sepsis (HCC) 04/08/2023 Hypotension 06/07/2018 Near syncope 06/07/2018 Medical Precautions: No active isolations Proper PPE donned/doffed in accordance with facility standards. Fall Risk: Mills Fall Risk Score: 60 (High Risk) Precautions/Restrictions: N/A Family/Caregiver Present: none Overall Cognitive Status: Exceptions - Problem solving: assistance required to generate solutions, assistance required to implement solutions, assistance required to identify errors made, assistance required to correct errors made, and decreased awareness of errors - Insights: decreased awareness of deficits - Initiation: requires cues for some - Sequencing: requires cues for some Overall Orientation Status: Oriented x4 Social/Functional History Patient admitted from SNF. Assistive Equipment: wheelchair - manual Prior Level of Function ADL Assistance: Needs Assist Ambulation Assistance: Non-Ambulatory Transfer Assistance: Needs Assist Objective ADLs No formal ADLs completed this date d/t weakness and fatigue. Pt anticipated to require SBA-min A with UB ADLs, max-total A with LB ADLs, and max A with bed level toileting evidenced by weakness, balance deficits, and inability to transfer. Upper Extremity Assessment AROM: WFL PROM: WFL Strength: Exceptions: generalized weakness Vision: no visual deficits Hearing: normal Bed Mobility Supine to sit: Mod Assist Sit to supine: Mod Assist Rolling to right: Mod Assist Rolling to left: Mod Assist Scooting: Min Assist HOB slightly elevated and use of bed rails with cues. Pt required mod A for trunk elevation to sitting and BLE mgmt returning to supine. Denies dizziness. Pt required assist with BLE mgmt returning to supine. Pt required mod A and verbal cues for initiation and sequencing with rolling and min A and verbal cues to scoot towards EOB Transfers/Functional Mobility Sit to stand: Pt attempting to stand from bed to fww with max A however unable to achieve any clearance. Pt with increased weakness and fatigue. Sitting balance: SBA Device(s) used: front wheeled walker AM-PAC Plan Pt would benefit from skilled acute OT services to address Strengthening, Balance Training, Functional Mobility Training, Endurance Training, Pain Management, Safety Education and Training, Patient/Caregiver Training, Equipment Evaluation/Education, Positioning, Self-Care/ADL Training, and Cognitive/Perceptual Training. Frequency: 7 visits during current hospital admission or until additional recommendations are made Barriers: Decreased endurance, Upper extremity weakness, and Lower extremity weakness Prognosis: fair Safety/Education Safety Safety Devices in place: All fall risk precautions in place, call light within reach, left in bed, gait belt, patient (more content not included)... [facility] 04-09-2023 Plan of care note The patient is Moderately Unstable - Medium risk of patient condition declining or worsening The patient's goals for the shift include feel better The clinical goals for the shift include resolve hypotension Over the shift, the patient did not make progress toward the following goals. Barriers to progression include infection. Recommendations to address these barriers include antibiotics. [facility] 04-09-2023 History and physical note Department of Family Medicine Attending History and Physical CHIEF COMPLAINT: hypotension hyperglycemia Reason for Admission: sepsis History Obtained From: medical records History of Present Illness Christa Stout is a 78 y.o. who presents to the emergency department with concern for hypotension and hyperglycemia. Patient [facility] from [facility] facility with reported hyperglycemia in the 400s and hypotension noted approximately 80s over 60s. Patient is denying any further complaints today. She specifically denies any further abdominal pain, nausea, vomiting, fevers, chills. No complaints of chest pain or shortness of breath. 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 Arrives via paramedics with IV fluids running. Her workup didn't showanything however it appears she is septic with anasarca within the abdomen and increased liver enzymes. She is being placed on iv zosyn and vanco and admitted for further workup Past Medical History: Past Medical History: Diagnosis Date Breast CA (HCC) Cerebral artery occlusion with cerebral infarction (HCC) Depression Diabetes mellitus (HCC) DVT (deep venous thrombosis) (HCC) GERD (gastroesophageal reflux disease) Hyperlipidemia Hypertension Muscle weakness-general Osteoporosis UTI (urinary tract infection) Past Surgical History: Past Surgical History: Procedure Laterality Date APPENDECTOMY BREAST LUMPECTOMY Left CHOLECYSTECTOMY GASTRIC BYPASS MASTECTOMY TONSILLECTOMY AND ADENOIDECTOMY (HISTORICAL) TOTAL ABDOMINAL HYSTERECTOMY Medications Prior to Admission: No medications prior to admission. Allergies: Aspirin, Ibuprofen, and Latex Social History: Social History Socioeconomic History Marital status: Single Tobacco Use Smoking status: Former Smokeless tobacco: Never Substance and Sexual Activity Alcohol use: Yes Drug use: Not Currently Social Determinants of Health Transportation Needs: No Transportation Needs (04/09/2023) PRAPARE - Transportation Lack of Transportation (Medical): No Lack of Transportation (Non-Medical): No Intimate Partner Violence: Not At Risk (04/09/2023) Humiliation, Afraid, Rape, and Kick questionnaire Fear of Current or Ex-Partner: No Emotionally Abused: No Physically Abused: No Sexually Abused: No Housing Stability: Low Risk (04/09/2023) Housing Stability Vital Sign Unable to Pay for Housing in the Last Year: No Number of Places Lived in the Last Year: 1 Unstable Housing in the Last Year: No Family History: Family History Problem Relation Name Age of Onset Breast cancer Mother Diabetes type II Mother REVIEW OF SYSTEMS: Review of Systems 10 point ros negative except for hpi Objective Vitals: BP 118/65 Pulse 84 Temp 36.1 C (97 F) (Temporal) Resp 16 Ht 5' 3 (1.6 m) Wt 167 lb 4.8 oz (75.9 kg) SpO2 99% BMI 29.64 kg/m Physical Exam Pt is alert and oiriented x 3 Heent wnl Heart regular Lungs ctab Abd benign Ext no edema Assessment/Plan Patient Active Problem List Diagnosis GERD (gastroesophageal reflux disease) Hyperlipidemia Depression Diabetes mellitus (HCC) Hypotension Near syncope Sepsis (HCC) Sepsis Hypotension Lactic acidosis Transaminitis Anemia Plan Admit to med tele Consult ID Consult GI Ib zosyn and vanco Monitor cultures ALYX SHEETS DO 04/09/23 10:13 AM [facility] 04-09-2023 History and physical note Department of Family Medicine Attending History and Physical CHIEF COMPLAINT: hypotension hyperglycemia Reason for Admission: sepsis History Obtained From: medical records History of Present Illness Christa Stout is a 78 y.o. who presents to the emergency department with concern for hypotension and hyperglycemia. Patient arrives from correction facility with reported hyperglycemia in the 400s and hypotension noted approximately 80s over 60s. Patient is denying any further complaints today. She specifically denies any further abdominal pain, nausea, vomiting, fevers, chills. No complaints of chest pain or shortness of breath. 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 Arrives via paramedics with IV fluids running. Her workup didn't showanything however it appears she is septic with anasarca within the abdomen and increased liver enzymes. She is being placed on iv zosyn and vanco and admitted for further workup Past Medical History: Past Medical History: Diagnosis Date Breast CA (HCC) Cerebral artery occlusion with cerebral infarction (HCC) Depression Diabetes mellitus (HCC) DVT (deep venous thrombosis) (HCC) GERD (gastroesophageal reflux disease) Hyperlipidemia Hypertension Muscle weakness-general Osteoporosis UTI (urinary tract infection) Past Surgical History: Past Surgical History: Procedure Laterality Date APPENDECTOMY BREAST LUMPECTOMY Left CHOLECYSTECTOMY GASTRIC BYPASS MASTECTOMY TONSILLECTOMY AND ADENOIDECTOMY (HISTORICAL) TOTAL ABDOMINAL HYSTERECTOMY Medications Prior to Admission: No medications prior to admission. Allergies: Aspirin, Ibuprofen, and Latex Social History: Social History Socioeconomic History Marital status: Single Tobacco Use Smoking status: Former Smokeless tobacco: Never Substance and Sexual Activity Alcohol use: Yes Drug use: Not Currently Social Determinants of Health Transportation Needs: No Transportation Needs (04/09/2023) PRAPARE - Transportation Lack of Transportation (Medical): No Lack of Transportation (Non-Medical): No Intimate Partner Violence: Not At Risk (04/09/2023) Humiliation, Afraid, Rape, and Kick questionnaire Fear of Current or Ex-Partner: No Emotionally Abused: No Physically Abused: No Sexually Abused: No Housing Stability: Low Risk (04/09/2023) Housing Stability Vital Sign Unable to Pay for Housing in the Last Year: No Number of Places Lived in the Last Year: 1 Unstable Housing in the Last Year: No Family History: Family History Problem Relation Name Age of Onset Breast cancer Mother Diabetes type II Mother REVIEW OF SYSTEMS: Review of Systems 10 point ros negative except for hpi Objective Vitals: BP 118/65 Pulse 84 Temp 36.1 C (97 F) (Temporal) Resp 16 Ht 5' 3 (1.6 m) Wt 167 lb 4.8 oz (75.9 kg) SpO2 99% BMI 29.64 kg/m Physical Exam Pt is alert and oiriented x 3 Heent wnl Heart regular Lungs ctab Abd benign Ext no edema Assessment/Plan Patient Active Problem List Diagnosis GERD (gastroesophageal reflux disease) Hyperlipidemia Depression Diabetes mellitus (HCC) Hypotension Near syncope Sepsis (HCC) Sepsis Hypotension Lactic acidosis Transaminitis Anemia Plan Admit to med tele Consult ID Consult GI Ib zosyn and vanco Monitor cultures ALYX SHEETS DO 04/09/23 10:13 AM documented in this encounter [facility] 04-09-2023 Consult note Associated Order (s): IP CONSULT TO INFECTIOUS DISEASES Images from the original note were not included. [facility] - Infectious Diseases [employer] Consult Note Reason for Consult: Sepsis History of Present Illness: This is a 78F who presented to the ED on 04/08 from SNF with hypotension and hyperglycemia. Pt states she was noted to be hypotensive on a routing vitals check. Prior to arrival she denied dizziness, weakness, fatigue, nausea, vomiting, diarrhea, or dysuria. She has a remote h/o breast CA s/p bilateral mastectomy with reoccurrence L chest s/p resection- not currently on therapy, appendectomy, cholecystectomy, gastric bypass, and hysterectomy. Significant PMH includes DM II, DVT, HTN, HL, and Osteoporosis. In the ED she was noted to be hypotensive 69/46, afebrile. WBC 19.6, LA 2.1, Cr 1.11, AST 290, ALT 166, Bili 2.7. CT abd/pelvis illustrating diffuse anasarca throughout the subcutaneous fatty tissue, extrahepatic biliary duct distention ,and prominent pancreatic duct. CTA chest illustrating pulmonary vascular congestion. Blood cultures collected, she was started on empiric Vanc/ Pip-Tazo, admitted for sepsis of unclear etiology. At present she c/o RLQ abdominal pain with palpation, otherwise denies new symptoms. Past Medical History: Past Medical History: Diagnosis Date Breast CA (HCC) Cerebral artery occlusion with cerebral infarction (HCC) Depression Diabetes mellitus (HCC) DVT (deep venous thrombosis) (HCC) GERD (gastroesophageal reflux disease) Hyperlipidemia Hypertension Muscle weakness-general Osteoporosis UTI (urinary tract infection) Past Surgical History: Past Surgical History: Procedure Laterality Date APPENDECTOMY BREAST LUMPECTOMY Left CHOLECYSTECTOMY GASTRIC BYPASS MASTECTOMY TONSILLECTOMY AND ADENOIDECTOMY (HISTORICAL) TOTAL ABDOMINAL HYSTERECTOMY Current Medications: Current Facility-Administered Medications Medication Dose Route Frequency Provider Last Rate Last Admin acetaminophen (Tylenol) tablet 650 mg 650 mg Oral q6h PRN Alyx M Esterle, DO Or acetaminophen (Tylenol) suppository 650 mg 650 mg Rectal q6h PRN Alyx M Esterle, DO enoxaparin (Lovenox) syringe 40 mg 40 mg SubCUTAneous Daily Alyx M Esterle, DO ondansetron ODT (Zofran-ODT) disintegrating tablet 4 mg 4 mg Oral q8h PRN Alyx M Esterle, DO Or ondansetron (Zofran) injection 4 mg 4 mg IntraVENous q6h PRN Alyx M Esterle, DO piperacillin-tazobactam (Zosyn) 3,375 mg in sodium chloride 0.9 % 50 mL IVPB Mini-Bag Plus 3,375 mg IntraVENous q8h Alyx M Esterle, DO polyethylene glycol (PEG) 3350 (Miralax) packet 17 g 17 g Oral Daily PRN Alyx M Esterle, DO sodium chloride 0.9 % infusion 5-250 mL/hr IntraVENous PRN Alyx M Esterle, DO sodium chloride 0.9 % infusion 75 mL/hr IntraVENous Continuous Alyx M Esterle, DO 75 mL/hr at 04/09/23 0018 75 mL/hr at 04/09/23 0018 sodium chloride 0.9% (NS) flush 10 mL 10 mL IntraVENous 2 times per day Alyx M Esterle, DO sodium chloride 0.9% (NS) flush 10 mL 10 mL IntraVENous PRN Alyx M Esterle, DO vancomycin IVPB 1250 mg in 250 mL NS (premix) 1,250 mg IntraVENous q24h Alyx M Esterle, DO Allergies: Allergies Allergen Reactions Aspirin Other and Swelling Lips swell Lips swell Other reaction(s): Other (See Comments) Lips swell Ibuprofen Swelling Latex Unknown Social History: Social History Socioeconomic History Marital status: Single Spouse name: Not on file Number of children: Not on file Years of education: Not on file Highest education level: Not on file Occupational History Not on file Tobacco Use Smoking status: Former Smokeless tobacco: Never Substance and Sexual Activity Alcohol use: Yes Drug use: Not Currently Sexual activity: Not on file Other Topics Concern Not on file Social History Narrative Not on file Social Determinants of Health Financial Resource Strain: Not on file Food Insecurity: Not on file Transportation Needs: No Transportation Needs (04/09/2023) PRAPARE - Transportation Lack of Transportation (Medical): No Lack of Transportation (Non-Medical): No Physical Activity: Not on file Stress: Not on file Social Connections: Not on file Intimate Partner Violence: Not At Risk (04/09/2023) Humiliation, Afraid, Rape, and Kick questionnaire Fear of Current or Ex-Partner: No Emotionally Abused: No Physically Abused: No Sexually Abused: No Housing Stability: Low Risk (04/09/2023) Housing Stability Vital Sign Unable to Pay for Housing in the Last Year: No Number of Places Lived in the Last Year: 1 Unstable Housing in the Last Year: No Family History: Family History Problem Relation Name Age of Onset Breast cancer Mother Diabetes type II Mother Review of Systems: Review of Systems Constitutional: Negative. Negative for chills, fatigue and fever. HENT: Negative. Negative for dental problem, ear pain, facial swelling, mouth sores, sinus pain, sore throat, trouble swallowing and voice change. Eyes: Negative. Negative for photophobia, discharge and visual disturbance. Respiratory: Negative. Negative for cough and shortness of breath. Cardiovascular: Negative for chest pain. Gastrointestinal: Positive for abdominal pain. Negative for diarrhea, nausea and vomiting. Endocrine: Negative. Genitourinary: Negative. Negative for dysuria, flank pain, hematuria and urgency. Musculoskeletal: Negative. Negative for back pain, joint swelling and myalgias. Skin: Negative. Negative for rash and wound. Allergic/Immunologic: Negative. Neurological: Negative. Negative for weakness. Hematological: Negative. Psychiatric/Behavioral: Negative. Vitals: Patient Vitals for the past 24 hrs: BP Temp Temp src Pulse Resp SpO2 Height Weight 04/09/23 0846 118/65 36.1 C (97 F) Temporal 84 16 99 % -- -- 04/09/23 0600 -- -- -- -- -- -- -- 75.9 kg (167 lb 4.8 oz) 04/09/23 0359 117/63 36.4 C (97.6 F) Temporal 80 18 100 % -- -- 04/09/23 0201 104/53 -- -- 93 -- -- -- -- 04/09/23 0111 (!) 85/46 36.6 C (97.9 F) Temporal 92 16 100 % -- -- 04/09/23 0035 102/65 -- -- -- -- -- -- -- 04/08/23 2345 (!) 92/48 -- -- 86 (!) 11 99 % -- -- 04/08/23 2340 88/59 -- -- 88 17 100 % -- -- 04/08/23 2335 80/51 -- -- 89 18 100 % -- -- 04/08/232329 -- -- -- 89 19 100 % -- -- 04/08/232324 100/78 -- -- 90 13 100 % -- -- 04/08/232319 -- -- -- 90 17 100 % -- -- 04/08/232314 -- -- -- 84 16 95 % -- -- 04/08/232310 100/68 -- -- 89 20 100 % -- -- 04/08/232309 -- -- -- 90 22 100 % -- -- 04/08/232304 100/78 -- -- 90 22 100 % -- -- 04/08/232299 -- -- -- 81 19 98 % -- -- 04/08/232254 (!) -- -- 90 22 100 % -- -- 04/08/232249 -- -- -- 83 16 100 % -- -- 04/08/232244 -- -- -- 84 13 98 % -- -- 04/08/232242 (!) -- -- 87 14 100 % -- -- 04/08/232241 -- -- -- 89 17 100 % -- -- 04/08/232240 -- -- -- 88 14 100 % -- -- 04/08/232239 -- -- -- 89 20 (!) 78 % -- -- 04/08/232238 -- -- -- 89 16 100 % -- -- 04/08/232237 -- -- -- 93 (!) 11 100 % -- -- 04/08/232236 -- -- -- 94 19 100 % -- -- 04/08/232235 -- -- -- 91 13 100 % -- -- 04/08/232234 -- -- -- 92 20 98 % -- -- 04/08/232233 -- -- -- 93 21 98 % -- -- 04/08/232232 80/52 -- -- 93 19 100 % -- -- 04/08/232231 -- -- -- 95 -- 100 % -- -- 04/08/232230 -- -- -- 99 -- 100 % -- -- 04/08/232229 -- -- -- 100 -- 100 % -- -- 04/08/232228 -- -- -- 100 -- 100 % -- -- 04/08/232227 -- -- -- 100 -- 99 % -- -- 04/08/232226 -- -- -- 103 -- 100 % -- -- 04/08/232225 -- -- -- 101 -- 99 % -- -- 04/08/232224 -- -- -- 101 -- 100 % -- -- 04/08/232223 -- -- -- 101 -- 100 % -- -- 04/08/232222 -- -- -- 96 -- 99 % -- -- 04/08/232221 -- -- -- 97 -- 99 % -- -- 04/08/232220 -- -- -- 95 -- 99 % -- -- 04/08/232219 -- -- -- 96 -- 98 % -- -- 04/08/232218 -- -- -- 96 -- 99 % -- -- 04/08/232217 -- -- -- 97 -- 99 % -- -- 04/08/232216 -- -- -- 99 -- 98 % -- -- 04/08/232214 -- -- -- 98 -- 98 % -- -- 04/08/232213 -- -- -- 99 -- 97 % -- -- 04/08/232212 -- -- -- 99 -- 98 % -- -- 04/08/232211 -- -- -- 98 -- 98 % -- -- 04/08/232210 -- -- -- 97 -- 98 % -- -- 04/08/232209 -- -- -- 99 -- 98 % -- -- 04/08/232208 -- -- -- 97 -- 97 % -- -- 04/08/232207 -- -- -- 98 -- 98 % -- -- 04/08/232206 -- -- -- 98 -- 98 % -- -- 04/08/232205 -- -- -- 98 -- 99 % -- -- 04/08/232204 -- -- -- 97 -- 98 % -- -- 04/08/232203 -- -- -- 98 -- 96 % -- -- 04/08/232202 -- -- -- 100 -- (!) 89 % -- -- 04/08/232201 -- -- -- 99 -- (!) 89 % -- -- 04/08/232200 -- -- -- 99 -- 91 % -- -- 04/08/232199 -- -- -- 101 -- -- -- -- 04/08/232158 -- -- -- 100 -- -- -- -- 04/08/232157 -- -- -- 100 -- 91 % -- -- 04/08/232156 -- -- -- 100 -- 95 % -- -- 04/08/232155 -- -- -- 102 -- 98 % -- -- 04/08/232154 -- -- -- 100 -- 96 % -- -- 04/08/232153 -- -- -- 100 -- 97 % -- -- 04/08/232151 (!) 69/46 36.6 C (97.8 F) Oral 99 16 97 % 1.6 m (5' 3 ) 79.4 kg (175 lb) Physical Exam: Physical Exam Vitals and nursing note reviewed. Constitutional: General: She is awake. She is not in acute distress. Appearance: Normal appearance. She is obese. She is not toxic-appearing. Comments: Laying in bed in no acute distress HENT: Head: Normocephalic and atraumatic. Right Ear: External ear normal. Left Ear: External ear normal. Nose: Nose normal. Mouth/Throat: Mouth: Mucous membranes are dry. Pharynx: Oropharynx is clear. Eyes: Extraocular Movements: Extraocular movements intact. Conjunctiva/sclera: Conjunctivae normal. Pupils: Pupils are equal, round, and reactive to light. Cardiovascular: Rate and Rhythm: Normal rate and regular rhythm. Heart sounds: Normal heart sounds. Pulmonary: Effort: Pulmonary effort is normal. Breath sounds: Normal breath sounds. Comments: Unlabored effort on RA Abdominal: General: Bowel sounds are normal. There is distension. Palpations: Abdomen is soft. Tenderness: There is abdominal tenderness (RLQ sharp pain : with deep palpation). There is no right CVA tenderness or left CVA tenderness. Musculoskeletal: General: No swelling or tenderness. Normal range of motion. Cervical back: Normal range of motion and neck supple. Lymphadenopathy: Cervical: No cervical adenopathy. Skin: General: Skin is warm and dry. Findings: No rash. Neurological: General: No focal deficit present. Mental Status: She is alert and oriented to person, place, and time. Psychiatric: Mood and Affect: Mood normal. Behavior: Behavior normal. Behavior is cooperative. Labs: Recent Labs 04/08/23 2220 NA 133* K 3.5 CL 105 CO2 21* BUN 14 CREATININE 1.11* GLUCOSE 267* CALCIUM 7.2* PROT 4.6* BILITOT 2.7* ALKPHOS 269* AST 290* ALT 166* Recent Labs 04/08/23 2220 WBC 19.6* HGB 11.3* HCT 34.4* PLT 134* LYMPHOPCT 4.2* MONOPCT 6.2 BASOPCT 0.0 NEUTROABS 17.5* Micro: No results for input(s): COVID19 in the last 72 hours. 04/08 blood cx x 2- in process 04/08 COVID/Fluid/RSV- negative Lines: PIV Radiography/Echo/Other: 04/08 CTA C/A/P- IMPRESSION: CHEST: 1. No pulmonary artery embolus. 2. Pulmonary vascular congestion with a small left pleural effusion with compressive atelectasis and/or infiltrate. 3. Healing right rib 10 fracture with callus formation. Subtle sclerosis along the mid sternum with mild cortical irregularity likely reflects a healing fracture. ABDOMEN/PELVIS: 1. Diffuse anasarca throughout the subcutaneous fatty tissue. 2. There is an indeterminate left adrenal gland 3.1 cm nodule. Recommend follow-up MRI adrenal gland protocol when feasible. 3. Small hiatal hernia with postsurgical changes of the stomach and gastroesophageal junction 4. Cholecystectomy with extrahepatic biliary duct distention, correlate with lab values. 5. The pancreatic duct is prominent, correlate with lab values. 6. Additional findings, as above. Antimicrobials,Start/End Dates: Vancomycin 04/08- Pip-Tazo 04/08- Impression: Severe Sepsis (POA), ? Intra abdominal etiology - extrahepatic biliary duct dilation on CT but normal biliary duct on abd US - RLQ abdominal pain - h/o appendectomy/ cholecystectomy 2. Hypotension- responsive to fluid resucitation 3. Leukocytosis/ Lactic Acidosis 4. Transaminitis 5. Anemia/ Thrombocytopenia 6. H/o Breast CA s/p bilateral mastectomy, L chest wall resection, not currently on therapy Plan: Continue Vanc/ Pip-Tazo Checked RUQ US which showed no intra hepatic duct dilatation and normal CBD Check hepatitis studies, pro kana Follow blood cultures Monitor infectious parameters ID will continue to follow Discussed with Dr Zaki Haines covering the weekend, please call with questions or concerns. Total time 60 minutes on this day of encounter includes counseling, coordinating plan of care, record and documentation review before and after visit including documentation and time not explicitly included on EMR time stamp for accounting for open encounter. Kenia Friend APRN, [employer] [facility] Infectious Disease 9:33 AM 04/09/2023 [employer] Work Phone: 04-09-2023 Plan of care note Problem: Knowledge Deficit Goal: Patient/family/caregiver demonstrates understanding of disease process, treatment plan, medications, and discharge instructions Outcome: Progressing Flowsheets (Taken 04/09/2023 0306) Patient/family/caregiver demonstrates understanding of disease process, treatment plan, medications, and discharge instructions: Provide teaching at level of understanding Problem: Potential for Compromised Skin Integrity Goal: Skin Integrity is Maintained or Improved Outcome: Progressing The patient is Moderately Unstable - Medium risk of patient condition declining or worsening The patient's goals for the shift include feel better The clinical goals for the shift include resolve hypotension [facility] 04-09-2023 Nurse Note Patient arrives from ED with one escort personnel. Bed rails up x2, call light in bed, bedside table in reach [facility] 04-09-2023 Nurse Note Patient arrives from ED with one escort personnel. Bed rails up x2, call light in bed, bedside table in reach documented in this encounter [facility] 04-09-2023 Consult note Formatting of th is note is different from the original. 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 year old female ordered vancomycin for sepsis; consult from Dr. Sheets to manage therapy. Patient Active Problem List Diagnosis Date Noted GERD (gastroesophageal reflux disease) 06/09/2018 Hyperlipidemia 06/09/2018 Depression 06/09/2018 Diabetes mellitus (HCC) 06/09/2018 Sepsis (HCC) 04/08/2023 Hypotension 06/07/2018 Near syncope 06/07/2018 Aspirin, Ibuprofen, and Latex CREATININE Date Value Ref Range Status 04/08/2023 1.11 (H) 0.52 - 1.04 mg/dL Final UREA NITROGEN Date Value Ref Range Status 04/08/2023 14 7 - 17 mg/dL Final Auto WBC Date Value Ref Range Status 04/08/2023 19.6 (H) 3.6 - 10.7 10*3/uL Final Ht Readings from Last 1 Encounters: 04/08/23 1.6 m (5' 3 ) Wt Readings from Last 1 Encounters: 04/08/23 79.4 kg (175 lb) Plan: Will initiate vancomycin 1250 mg IV every 24 hours based on predicted AUC of 522 mg/L.hr . Goal AUC is 400-600 mg/L.hr. Random level will be scheduled for 04-09 06. Thank you for the consult. Will continue to follow. [facility] 04-08-2023 Emergency department Note Pt laying in bed. Pt has even and equal chest rise. Pt denies any needs at this time. Pt A+Ox4. Tj Molina RN 04/08/23 2874 [facility] 04-08-2023 Emergency department Note Pt laying in bed. Pt has even and equal chest rise. Pt denies any needs at this time. Pt A+Ox4. Tj Molina RN 04/08/232243 POC glucose 265. Tj Molina RN 04/08/232208 Pt sating 88% on RA. Pt placed on 2L per NC. Pt sating 98% at this time. Tj Molina RN 04/08/232204 Pt A+Ox4. Pt has even and equal chest rise. Dr. Moody bedside at this time. Tj Molina RN 04/08/232154 Pt placed in reverse trendelenburg position at this time. Tj Molina RN 04/08/232153 Emergency Department Encounter [facility] ED Patient: Christa Stout : 1945 Date of Evaluation: 04/08/2023 ED Supervising Physician: Nolberto Moody MD I independently examined and evaluated Christa Stout. In brief, Christa Stout is a 78 y.o. female PMH Per EMR including DVT, hypertension, hyperlipidemia, UTI, prior CVA, presents from nursing facility with concern for hypotension, hyperglycemia. Per report, patient today discovered to have hypotension, hyperglycemia, glucose in the 400s, recently diagnosed with bilateral DVT, currently on anticoagulation, on my evaluation patient denies any symptoms, including fever chills, cough, chest pain, shortness of breath, abdominal pain, nausea vomiting, numbness or weakness, extremity pain, unclear reliability of patient as a historian. Patient arrives by paramedics, treated with IV fluids prehospital setting. Focused exam: General: no apparent distress, nontoxic appearing HEENT: airway patent, mucous membranes moist Cardiovascular: regular rhythm, tachycardic rate Respiratory: non-labored breathing, breath sounds clear, no wheezing crackles or rhonchi, no tachypnea Gastrointestinal: soft, non-distended, non-tender to deep palpation throughout Extremities: no obvious deformity, non edematous bilateral lower extremities, no calf tenderness, no wounds of the bilateral feet Neurologic: Alert, oriented, no facial asymmetry, extraocular movements intact, visual mckeon intact, follows commands, symmetrical private detective strength, symmetrical plantarflexion, sensation intact to light touch all extremities Brief ED course/MDM: Patient is a 78-year-old female, presents as above, with concern for hyperglycemia, hypotension, she arrives afebrile, borderline tachycardic, hypotensive, nontoxic-appearing, denies any symptoms, presentation concerning for an occult infectious process, PE, ACS, metabolic process, will obtain workup to evaluate including broad laboratory valuation, EKG, CTA chest abdomen and pelvis, will treat with IV fluids, if blood pressure does not improve with IV fluids will initiate Levophed drip to maintain MAP greater than 65, will treat with empiric broad-spectrum antibiotics vancomycin and Zosyn. Further management disposition pending results of workup and response to treatment. Blood pressure improved 100/68 with IV fluids Labs obtained, interpreted by me, notable for creatinine 1.11, elevated alk phos and bilirubin with AST predominant transaminitis, leukocytosis WBC 19.6, lactate 2.1, BNP 3120, glucose 267 with bicarb 21, anion gap 7, INR 1.7, viral panel negative for COVID influenza and RSV, urinalysis pending EKG obtained, per my interpretation, notable for sinus rhythm, low voltage, nonspecific T wave changes, no acute ischemic ST segment changes. Troponin 0.017 CTA chest, CT abdomen pelvis results pending CRITICAL CARE A total of 32 minutes was spent on critical-care time. There was a concern for clinically significant/life threatening deterioration in the patient's condition which required my urgent intervention. Time was spent on initial evaluation, reassessment, continuous bedside management, reviewing documentation, reviewing laboratory data and imaging studies, discussions with patient and/or family, and/or complicated medical decision making. This critical-care time is exclusive of any time spent on teaching, procedures, or critical care time documented by other physicians. All diagnostic, treatment, and disposition decisions were made by myself in conjunction with the [facility]. For all further details of the patient's emergency department visit, please see their documentation. I personally saw the patient and performed a substantive portion of the visit including all aspects of medical decision making. (Please note that portions of this note may have been completed with a voice recognition program. Efforts were made to edit the dictations but occasionally words are mis-transcribed.) Nolberto Moody MD [facility] Nolberto Moody MD 04/08/23 2334 EMERGENCY DEPARTMENT ENCOUNTER Pt Name: Christa Stout Birthdate 1945 Date of evaluation: 04/08/2023 ED Provider: Elif Guerrero PA-C EDcare was supervised by Dr. Moody who independently examined and evaluated the patient. Please see their attestation note for further details. CHIEF COMPLAINT Chief Complaint Patient presents with Hypotension Pt brought in by EMS due to patient having low blood pressure. Pt is from [place] [facility]. EMS sates that patient has BP of 86/60. 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 HISTORY OF PRESENT ILLNESS (Location/Symptom, Timing/Onset, Context/Setting, Quality, Duration, Modifying Factors, Severity) Note limiting factors. I wore appropriate PPE for the entirety of this encounter. HPI Christa Stout is a 78 y.o. who presents to the emergency department with concern for hypotension and hyperglycemia. Patient arrives from [facility] facility with reported hyperglycemia in the 400s and hypotension noted approximately 80s over 60s. Patient is denying any further complaints today. She specifically denies any further abdominal pain, nausea, vomiting, fevers, chills. No complaints of chest pain or shortness of breath. 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 Arrives via paramedics with IV fluids running. Nursing Notes were reviewed. Limitations to history: None Outside historians: None REVIEW OF SYSTEMS Review of Systems Constitutional: Negative for chills and fever. HENT: Negative for congestion and sore throat. Eyes: Negative for visual disturbance. Respiratory: Negative for cough and shortness of breath. Cardiovascular: Negative for chest pain. Gastrointestinal: Negative for abdominal pain, nausea and vomiting. Genitourinary: Negative for dysuria and hematuria. Musculoskeletal: Negative for arthralgias and myalgias. Skin: Negative for color change and rash. Neurological: Negative for dizziness and syncope. Psychiatric/Behavioral: Negative. All other systems reviewed and are negative. Pertinent positives and negatives as per HPI. PAST MEDICAL HISTORY Past Medical History: Diagnosis Date Breast CA (HCC) Cerebral artery occlusion with cerebral infarction (HCC) Depression Diabetes mellitus (HCC) DVT (deep venous thrombosis) (HCC) GERD (gastroesophageal reflux disease) Hyperlipidemia Hypertension Muscle weakness-general Osteoporosis UTI (urinary tract infection) SURGICAL HISTORY Past Surgical History: Procedure Laterality Date APPENDECTOMY BREAST LUMPECTOMY Left CHOLECYSTECTOMY GASTRIC BYPASS MASTECTOMY TONSILLECTOMY AND ADENOIDECTOMY (HISTORICAL) TOTAL ABDOMINAL HYSTERECTOMY CURRENT MEDICATIONS Previous Medications No medications on file ALLERGIES Aspirin, Ibuprofen, and Latex FAMILY HISTORY Family History Problem Relation Name Age of Onset Breast cancer Mother Diabetes type II Mother SOCIAL HISTORY Social History Socioeconomic History Marital status: Single Tobacco Use Smoking status: Former Smokeless tobacco: Never Substance and Sexual Activity Alcohol use: Yes Drug use: Not Currently SCREENINGS Dawson Coma Scale Best Eye Response: Spontaneous Best Verbal Response: Oriented PHYSICAL EXAM ED Triage Vitals [04/08/23 2152] Temp Heart Rate Resp BP 36.6 C (97.8 F) 99 16 (!) 69/46 SpO2 Temp Source Heart Rate Source Patient Position 97 % Oral -- -- BP Location FiO2 (%) -- -- Physical Exam Vitals and nursing note reviewed. Constitutional: General: She is not in acute distress. Appearance: She is well-developed. HENT: Head: Normocephalic and atraumatic. Eyes: Extraocular Movements: Extraocular movements intact. Pupils: Pupils are equal, round, and reactive to light. Cardiovascular: Rate and Rhythm: Normal rate and regular rhythm. Heart sounds: No murmur heard. Pulmonary: Effort: Pulmonary effort is normal. No respiratory distress. Breath sounds: Normal breath sounds. Abdominal: General: Bowel sounds are normal. There is no distension. Palpations: Abdomen is soft. Tenderness: There is no abdominal tenderness. There is no guarding or rebound. Musculoskeletal: Right lower leg: No edema. Left lower leg: No edema. Skin: General: Skin is warm and dry. Capillary Refill: Capillary refill takes less than 2 seconds. Neurological: Mental Status: She is alert and oriented to person, place, and time. Sensory: No sensory deficit. Motor: No weakness. Psychiatric: Mood and Affect: Mood normal. Behavior: Behavior normal. DIAGNOSTIC RESULTS RADIOLOGY (Per Emergency Physician): Interpretation per the Radiologist below, if available at the time of this note: CT abdomen pelvis w contrast Final Result CHEST: 1. No pulmonary artery embolus. 2. Pulmonary vascular congestion with a small left pleural effusion with compressive atelectasis and/or infiltrate. 3. Healing right rib 10 fracture with callus formation. Subtle sclerosis along the mid sternum with mild cortical irregularity likely reflects a healing fracture. ABDOMEN/PELVIS: 1. Diffuse anasarca throughout the subcutaneous fatty tissue. 2. There is an indeterminate left adrenal gland 3.1 cm nodule. Recommend follow-up MRI adrenal gland protocol when feasible. 3. Small hiatal hernia with postsurgical changes of the stomach and gastroesophageal junction 4. Cholecystectomy with extrahepatic biliary duct distention, correlate with lab values. 5. The pancreatic duct is prominent, correlate with lab values. 6. Additional findings, as above. Report Dictated on Electronically Signed By: Judy Rodriguez MD Electronically Signed Date/Time: 04/08/2023 11:[address] chest angiogram w and/or wo IV contrast Final Result CHEST: 1. No pulmonary artery embolus. 2. Pulmonary vascular congestion with a small left pleural effusion with compressive atelectasis and/or infiltrate. 3. Healing right rib 10 fracture with callus formation. Subtle sclerosis along the mid sternum with mild cortical irregularity likely reflects a healing fracture. ABDOMEN/PELVIS: 1. Diffuse anasarca throughout the subcutaneous fatty tissue. 2. There is an indeterminate left adrenal gland 3.1 cm nodule. Recommend follow-up MRI adrenal gland protocol when feasible. 3. Small hiatal hernia with postsurgical changes of the stomach and gastroesophageal junction 4. Cholecystectomy with extrahepatic biliary duct distention, correlate with lab values. 5. The pancreatic duct is prominent, correlate with lab values. 6. Additional findings, as above. Report Dictated on Electronically Signed By: Judy Rodriguez MD Electronically Signed Date/Time: 04/08/2023 11:45 PM EST CTA chest abdomen pelvis angiogram w and/or wo contrast (Results Pending) LABS: Labs Reviewed COMPREHENSIVE METABOLIC PANEL - Abnormal Result Value SODIUM 133 (*) POTASSIUM 3.5 CHLORIDE 105 CARBON DIOXIDE 21 (*) ANION GAP 7 UREA NITROGEN 14 CREATININE 1.11 (*) GLUCOSE 267 (*) CALCIUM 7.2 (*) AST (SGOT) 290 (*) ALT 166 (*) ALKALINE PHOSPHATASE 269 (*) ALBUMIN 1.8 (*) BILIRUBIN, TOTAL 2.7 (*) TOTAL PROTEIN 4.6 (*) eGFR 51.3 (*) LACTIC ACID WITH REFLEX - Abnormal LACTIC ACID 2.1 (*) CBC WITH AUTO DIFFERENTIAL - Abnormal Auto WBC 19.6 (*) RBC 3.92 Hemoglobin 11.3 (*) Hematocrit 34.4 (*) MCV 87.7 MCH 28.8 MCHC 32.9 RDW 17.1 (*) Platelets 134 (*) MPV 10.2 nRBC 0.0 Neutrophils Relative 89.5 (*) Lymphocytes Relative 4.2 (*) Monocytes Relative 6.2 Eosinophils Relative 0.1 (*) Basophils Relative 0.0 Neutrophils Absolute 17.5 (*) Lymphocytes Absolute 0.8 (*) Monocytes Absolute 1.2 (*) Eosinophils Absolute 0.0 Basophils Absolute 0.0 NT PRO BNP - Abnormal NT PRO BNP 3,120 (*) BETA HYDROXYBUTYRATE - Abnormal BETA HYDROXYBUTYRATE 3.15 (*) PROTHROMBIN TIME - Abnormal PROTHROMBIN TIME 17.5 (*) INR 1.7 (*) APTT - Abnormal APTT 32.2 (*) Narrative: NOTE: The therapeutic time for Heparin anticoagulation, based on Xa activity inhibition, is an APTT of 46-80 seconds. POCT GLUCOSE METER UNSOLICITED RESULTS - Abnormal Glucose 265 (*) Narrative: Performed by: Kristofer Hess [facility], [address] [place] [id number] CLIA ID: [id number] POCT VENOUS BLOOD GAS UNSOLICITED RESULTS - Abnormal pH, Venous 7.434 (*) pCO2, Venous 32.7 (*) pO2, Venous 40.4 HCO3, Venous 21.9 (*) Base Excess, Venous -1.8 SO2, Venous 77.8 FIO2 2 Narrative: Performed by: Kristofer Hess [facility], [address] [place] [address] [place] [address] CLIA ID: [id number] SARS-COV-2, FLU A/B, AND RSV COMBO - Normal SARS-CoV-2 Not Detected Respiratory Syncytial Virus Not Detected Influenza A Not Detected Influenza B Not Detected Narrative: Methodology: real-time, RT-PCR The SARS-CoV-2, Flu A/B, and RSV Combo assay is intended for in vitro diagnostic use under the FDA Emergency Use Authorization (EUA). This test has not been FDA cleared or approved. In compliance with this authorization, please visit www.fda.gov/media/455778/download or www.fda.gov/media/557383/download to access the applicable information sheets. TROPONIN I - Normal TROPONIN I 0.017 Narrative: Patients with high levels of Biotin oral intake (ie >5 mg/day) may have falsely decreased Troponin levels. POCT GLUCOSE METER - Normal Glucose Blood, POC 265 BLOOD CULTURE BLOOD CULTURE BLOOD CULTURE BLOOD CULTURE BLOOD TYPE AND SCREEN GEL ABO Grouping O Antibody Screen NEG Rh Type POS CONFIRMATORY ABO/RH ABO Grouping O Rh Type POS COMPLETE URINALYSIS WITH REFLEX TO CULTURE Narrative: The following orders were created for panel order Urinalysis complete with reflex to Culture. Procedure Abnormality Status --------- ------ Complete Urinalysis[[id number]] Please view results for these tests on the individual orders. COMPLETE URINALYSIS BLOOD GAS, VENOUS LACTIC ACID WITH REFLEX LACTIC ACID WITH REFLEX CBC WITH AUTO DIFFERENTIAL COMPREHENSIVE METABOLIC PANEL PROCALCITONIN TEST VANCOMYCIN, RANDOM All other labs were within normal range or not returned as of this dictation. EMERGENCY DEPARTMENT COURSE and DIFFERENTIAL DIAGNOSIS/MDM: Vitals: Vitals: 04/08/23 2335 04/08/23 2340 04/08/23 2345 04/09/23 0035 BP: 80/51 88/59 (!) 92/48 102/65 Pulse: 89 88 86 Resp: 18 17 (!) 11 Temp: TempSrc: SpO2: 100% 100% 99% Weight: Height: Medications vancomycin (Vancocin) 1750 mg in NS 500 mL IVPB (compounded premix) (1,750 mg IntraVENous New Bag 04/08/232328) sodium chloride 0.9% (NS) flush 10 mL (10 mL IntraVENous Not Given 04/08/232354) sodium chloride 0.9% (NS) flush 10 mL (has no administration in time range) sodium chloride 0.9 % infusion (has no administration in time range) acetaminophen (Tylenol) tablet 650 mg (has no administration in time range) Or acetaminophen (Tylenol) suppository 650 mg (has no administration in time range) ondansetron ODT (Zofran-ODT) disintegrating tablet 4 mg (has no administration in time range) Or ondansetron (Zofran) injection 4 mg (has no administration in time range) polyethylene glycol (PEG) 3350 (Miralax) packet 17 g (has no administration in time range) enoxaparin (Lovenox) syringe 40 mg (has no administration in time range) sodium chloride 0.9 % infusion (75 mL/hr IntraVENous New Bag 04/09/23 0018) piperacillin-tazobactam (Zosyn) 3,375 mg in sodium chloride 0.9 % 50 mL IVPB Mini-Bag Plus (has no administration in time range) vancomycin IVPB 1250 mg in 250 mL NS (premix) (has no administration in time range) sodium chloride 0.9 % bolus 2,000 mL (0 mL IntraVENous Stopped 04/08/23 2332) piperacillin-tazobactam (Zosyn) 3,375 mg in sodium chloride 0.9 % 50 mL IVPB Mini-Bag Plus (0 mg IntraVENous Stopped 04/08/23 2305) iopamidol (Isovue-370) 76 % injection 75 mL (75 mL IntraVENous Given 04/08/232319) MDM elements: The patient presented with chief complaint of hypertension and hyperglycemia. Patient arrives via EMS from nursing facility where she was noted to be hypotensive approximately 80s over 60s. Patient is denying any further complaints today. Reports that she feels physically well. On my exam she is alert, oriented, and in no acute distress. Her vital signs are unremarkable for hypotension of 69/46. Borderline tachycardic. Saturating appropriately on room air. Moving all extremities intentionally. Cardiac auscultation with regular rate and rhythm. Abdomen soft, nontender, nondistended, no peritoneal signs.. The differential diagnosis associated with this patient's presentation includes consider hypoglycemia, acute infectious process, PE, ACS, further acute metabolic process.. Our workup consisted of ordering/reviewing: Obtained CBC which demonstrates a leukocytosis with a white blood cell count of 19.6. Hemoglobin appears stable. Lactic elevated at 2.1. CMP demonstrates transaminitis and a creatinine of 1.1. Unable to compare to baseline as previous labs are not accessible. BHB mildly elevated at 3.1. VBG demonstrates no acidosis. Troponin within normal limits. Viral testing negative. CTA chest obtained given concern for pulmonary embolism secondary to patient's recent diagnosis of DVT. Study is unremarkable for pulmonary artery embolus, demonstrates pulmonary vascular congestion with small left pleural effusion. CT abdomen pelvis obtained which demonstrates diffuse edema in the soft tissue with no further evidence of acute intra-abdominal process. EKG obtained which demonstrates sinus tachycardia, no further evidence of acute ST segment elevation or depression. No noted acute ischemic changes. Patient provided with fluid bolus after which her pressures improved to 100s over 60s. No further complaints per patient. Given stabilization of blood pressure and lack of further symptom development, believe patient is appropriate and stable for the medical floor. Will be admitted for further evaluation of likely acute infectious process. I also reviewed external records from Outpatient labs and studies limited availability, able to view CBC and previous UA. As well as nursing facility documentation EMS run sheet concern for hypotension. Consideration for escalation of care with: ICU care, however, patient appears to be responding well to fluid, vital signs remain stable. The patient will be Admitted. Patient is in agreement with this plan. PROCEDURES: Unless otherwise noted below, none Procedures CRITICAL CARE TIME Total Critical Care time was 30 minutes, excluding separately reportable procedures. There was a high probability of clinically significant/life threatening deterioration in the patient's condition which required my urgent intervention. FINAL IMPRESSION 1. Sepsis (HCC) DISPOSITION Admit 04/08/2023 11:32:46 PM PATIENT REFERRED TO: No follow-up provider specified. DISCHARGE MEDICATIONS: New Prescriptions No medications on file (Comment: Please note this report has been produced using speech recognition software and may contain errors related to that system including errors in grammar, punctuation, and spelling, as well as words and phrases that may be inappropriate. If there are any questions or concerns please feel free to contact the dictating provider for clarification.) Elif Guerrero PA-C (electronically signed) Emergency Medicine Provider Elif Guerrero PA-C 04/09/23 0042 Pt A+Ox4. Pt has even and equal chest rise. Pt laying in bed. Bed: 33 Expected date: Expected time: Means of arrival: Comments: Nadeen Bridges RN 04/08/232144 documented in this encounter [facility] 04-08-2023 Emergency department Note POC glucose 265. Tj Molina RN 04/08/232208 [facility] 04-08-2023 Emergency department Note Pt sating 88% on RA. Pt placed on 2L per NC. Pt sating 98% at this time. Tj Molina RN 04/08/232204 [facility] 04-08-2023 Emergency department Note Pt A+Ox4. Pt has even and equal chest rise. Dr. Moody bedside at this time. Tj Molina RN 04/08/232154 [facility] 04-08-2023 Emergency department Note Pt placed in reverse trendelenburg position at this time. Tj Molina RN 04/08/232153 [facility] 04-08-2023 Emergency department Note Bed: 33 Expected date: Expected time: Means of arrival: Comments: Nadeen Bridges RN 04/08/232144 [facility] 04-08-2023 Emergency department Triage note Pt A+Ox4. Pt has even and equal chest rise. Pt laying in bed. [facility] 04-08-2023 Physician Emergency department Note Emergency Department Encounter [facility] ED Patient: Christa Stout : 1945 Date of Evaluation: 04/08/2023 ED Supervising Physician: Nolberto Moody MD I independently examined and evaluated Christa Stout. In brief, Christa Stout is a 78 y.o. female PMH Per EMR including DVT, hypertension, hyperlipidemia, UTI, prior CVA, presents from nursing facility with concern for hypotension, hyperglycemia. Per report, patient today discovered to have hypotension, hyperglycemia, glucose in the 400s, recently diagnosed with bilateral DVT, currently on anticoagulation, on my evaluation patient denies any symptoms, including fever chills, cough, chest pain, shortness of breath, abdominal pain, nausea vomiting, numbness or weakness, extremity pain, unclear reliability of patient as a historian. Patient arrives by paramedics, treated with IV fluids prehospital setting. Focused exam: General: no apparent distress, nontoxic appearing HEENT: airway patent, mucous membranes moist Cardiovascular: regular rhythm, tachycardic rate Respiratory: non-labored breathing, breath sounds clear, no wheezing crackles or rhonchi, no tachypnea Gastrointestinal: soft, non-distended, non-tender to deep palpation throughout Extremities: no obvious deformity, non edematous bilateral lower extremities, no calf tenderness, no wounds of the bilateral feet Neurologic: Alert, oriented, no facial asymmetry, extraocular movements intact, visual mckeon intact, follows commands, symmetrical private detective strength, symmetrical plantarflexion, sensation intact to light touch all extremities Brief ED course/MDM: Patient is a 78-year-old female, presents as above, with concern for hyperglycemia, hypotension, she arrives afebrile, borderline tachycardic, hypotensive, nontoxic-appearing, denies any symptoms, presentation concerning for an occult infectious process, PE, ACS, metabolic process, will obtain workup to evaluate including broad laboratory valuation, EKG, CTA chest abdomen and pelvis, will treat with IV fluids, if blood pressure does not improve with IV fluids will initiate Levophed drip to maintain MAP greater than 65, will treat with empiric broad-spectrum antibiotics vancomycin and Zosyn. Further management disposition pending results of workup and response to treatment. Blood pressure improved 100/68 with IV fluids Labs obtained, interpreted by me, notable for creatinine 1.11, elevated alk phos and bilirubin with AST predominant transaminitis, leukocytosis WBC 19.6, lactate 2.1, BNP 3120, glucose 267 with bicarb 21, anion gap 7, INR 1.7, viral panel negative for COVID influenza and RSV, urinalysis pending EKG obtained, per my interpretation, notable for sinus rhythm, low voltage, nonspecific T wave changes, no acute ischemic ST segment changes. Troponin 0.017 CTA chest, CT abdomen pelvis results pending CRITICAL CARE A total of 32 minutes was spent on critical-care time. There was a concern for clinically significant/life threatening deterioration in the patient's condition which required my urgent intervention. Time was spent on initial evaluation, reassessment, continuous bedside management, reviewing documentation, reviewing laboratory data and imaging studies, discussions with patient and/or family, and/or complicated medical decision making. This critical-care time is exclusive of any time spent on teaching, procedures, or critical care time documented by other physicians. All diagnostic, treatment, and disposition decisions were made by myself in conjunction with the [facility]. For all further details of the patient's emergency department visit, please see their documentation. I personally saw the patient and performed a substantive portion of the visit including all aspects of medical decision making. (Please note that portions of this note may have been completed with a voice recognition program. Efforts were made to edit the dictations but occasionally words are mis-transcribed.) Nolberto Moody MD [employer] Nolberto Moody MD 04/08/232335 [facility] [employer] Phone: 04-08-2023 Physician Emergency department Note EMERGENCY DEPARTMENT ENCOUNTER Pt Name: Christa Stout Birthdate 1945 Date of evaluation: 04/08/2023 ED Provider: Elif Guerrero PA-C EDcare was supervised by Dr. Moody who independently examined and evaluated the patient. Please see their attestation note for further details. CHIEF COMPLAINT Chief Complaint Patient presents with Hypotension Pt brought in by EMS due to patient having low blood pressure. Pt is from [place] [facility]. EMS sates that patient has BP of 86/60. 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 HISTORY OF PRESENT ILLNESS (Location/Symptom, Timing/Onset, Context/Setting, Quality, Duration, Modifying Factors, Severity) Note limiting factors. I wore appropriate PPE for the entirety of this encounter. HPI Christa Stout is a 78 y.o. who presents to the emergency department with concern for hypotension and hyperglycemia. Patient arrives from [facility] facility with reported hyperglycemia in the 400s and hypotension noted approximately 80s over 60s. Patient is denying any further complaints today. She specifically denies any further abdominal pain, nausea, vomiting, fevers, chills. No complaints of chest pain or shortness of breath. 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 Arrives via paramedics with IV fluids running. Nursing Notes were reviewed. Limitations to history: None Outside historians: None REVIEW OF SYSTEMS Review of Systems Constitutional: Negative for chills and fever. HENT: Negative for congestion and sore throat. Eyes: Negative for visual disturbance. Respiratory: Negative for cough and shortness of breath. Cardiovascular: Negative for chest pain. Gastrointestinal: Negative for abdominal pain, nausea and vomiting. Genitourinary: Negative for dysuria and hematuria. Musculoskeletal: Negative for arthralgias and myalgias. Skin: Negative for color change and rash. Neurological: Negative for dizziness and syncope. Psychiatric/Behavioral: Negative. All other systems reviewed and are negative. Pertinent positives and negatives as per HPI. PAST MEDICAL HISTORY Past Medical History: Diagnosis Date Breast CA (HCC) Cerebral artery occlusion with cerebral infarction (HCC) Depression Diabetes mellitus (HCC) DVT (deep venous thrombosis) (HCC) GERD (gastroesophageal reflux disease) Hyperlipidemia Hypertension Muscle weakness-general Osteoporosis UTI (urinary tract infection) SURGICAL HISTORY Past Surgical History: Procedure Laterality Date APPENDECTOMY BREAST LUMPECTOMY Left CHOLECYSTECTOMY GASTRIC BYPASS MASTECTOMY TONSILLECTOMY AND ADENOIDECTOMY (HISTORICAL) TOTAL ABDOMINAL HYSTERECTOMY CURRENT MEDICATIONS Previous Medications No medications on file ALLERGIES Aspirin, Ibuprofen, and Latex FAMILY HISTORY Family History Problem Relation Name Age of Onset Breast cancer Mother Diabetes type II Mother SOCIAL HISTORY Social History Socioeconomic History Marital status: Single Tobacco Use Smoking status: Former Smokeless tobacco: Never Substance and Sexual Activity Alcohol use: Yes Drug use: Not Currently SCREENINGS Dawson Coma Scale Best Eye Response: Spontaneous Best Verbal Response: Oriented PHYSICAL EXAM ED Triage Vitals [04/08/23 2152] Temp Heart Rate Resp BP 36.6 C (97.8 F) 99 16 (!) 69/46 SpO2 Temp Source Heart Rate Source Patient Position 97 % Oral -- -- BP Location FiO2 (%) -- -- Physical Exam Vitals and nursing note reviewed. Constitutional: General: She is not in acute distress. Appearance: She is well-developed. HENT: Head: Normocephalic and atraumatic. Eyes: Extraocular Movements: Extraocular movements intact. Pupils: Pupils are equal, round, and reactive to light. Cardiovascular: Rate and Rhythm: Normal rate and regular rhythm. Heart sounds: No murmur heard. Pulmonary: Effort: Pulmonary effort is normal. No respiratory distress. Breath sounds: Normal breath sounds. Abdominal: General: Bowel sounds are normal. There is no distension. Palpations: Abdomen is soft. Tenderness: There is no abdominal tenderness. There is no guarding or rebound. Musculoskeletal: Right lower leg: No edema. Left lower leg: No edema. Skin: General: Skin is warm and dry. Capillary Refill: Capillary refill takes less than 2 seconds. Neurological: Mental Status: She is alert and oriented to person, place, and time. Sensory: No sensory deficit. Motor: No weakness. Psychiatric: Mood and Affect: Mood normal. Behavior: Behavior normal. DIAGNOSTIC RESULTS RADIOLOGY (Per Emergency Physician): Interpretation per the Radiologist below, if available at the time of this note: CT abdomen pelvis w contrast Final Result CHEST: 1. No pulmonary artery embolus. 2. Pulmonary vascular congestion with a small left pleural effusion with compressive atelectasis and/or infiltrate. 3. Healing right rib 10 fracture with callus formation. Subtle sclerosis along the mid sternum with mild cortical irregularity likely reflects a healing fracture. ABDOMEN/PELVIS: 1. Diffuse anasarca throughout the subcutaneous fatty tissue. 2. There is an indeterminate left adrenal gland 3.1 cm nodule. Recommend follow-up MRI adrenal gland protocol when feasible. 3. Small hiatal hernia with postsurgical changes of the stomach and gastroesophageal junction 4. Cholecystectomy with extrahepatic biliary duct distention, correlate with lab values. 5. The pancreatic duct is prominent, correlate with lab values. 6. Additional findings, as above. Report Dictated on Electronically Signed By: Judy Rodriguez MD Electronically Signed Date/Time: 04/08/2023 11:[address] chest angiogram w and/or wo IV contrast Final Result CHEST: 1. No pulmonary artery embolus. 2. Pulmonary vascular congestion with a small left pleural effusion with compressive atelectasis and/or infiltrate. 3. Healing right rib 10 fracture with callus formation. Subtle sclerosis along the mid sternum with mild cortical irregularity likely reflects a healing fracture. ABDOMEN/PELVIS: 1. Diffuse anasarca throughout the subcutaneous fatty tissue. 2. There is an indeterminate left adrenal gland 3.1 cm nodule. Recommend follow-up MRI adrenal gland protocol when feasible. 3. Small hiatal hernia with postsurgical changes of the stomach and gastroesophageal junction 4. Cholecystectomy with extrahepatic biliary duct distention, correlate with lab values. 5. The pancreatic duct is prominent, correlate with lab values. 6. Additional findings, as above. Report Dictated on Electronically Signed By: Judy Rodriguez MD Electronically Signed Date/Time: 04/08/2023 11:45 PM EST CTA chest abdomen pelvis angiogram w and/or wo contrast (Results Pending) LABS: Labs Reviewed COMPREHENSIVE METABOLIC PANEL - Abnormal Result Value SODIUM 133 (*) POTASSIUM 3.5 CHLORIDE 105 CARBON DIOXIDE 21 (*) ANION GAP 7 UREA NITROGEN 14 CREATININE 1.11 (*) GLUCOSE 267 (*) CALCIUM 7.2 (*) AST (SGOT) 290 (*) ALT 166 (*) ALKALINE PHOSPHATASE 269 (*) ALBUMIN 1.8 (*) BILIRUBIN, TOTAL 2.7 (*) TOTAL PROTEIN 4.6 (*) eGFR 51.3 (*) LACTIC ACID WITH REFLEX - Abnormal LACTIC ACID 2.1 (*) CBC WITH AUTO DIFFERENTIAL - Abnormal Auto WBC 19.6 (*) RBC 3.92 Hemoglobin 11.3 (*) Hematocrit 34.4 (*) MCV 87.7 MCH 28.8 MCHC 32.9 RDW 17.1 (*) Platelets 134 (*) MPV 10.2 nRBC 0.0 Neutrophils Relative 89.5 (*) Lymphocytes Relative 4.2 (*) Monocytes Relative 6.2 Eosinophils Relative 0.1 (*) Basophils Relative 0.0 Neutrophils Absolute 17.5 (*) Lymphocytes Absolute 0.8 (*) Monocytes Absolute 1.2 (*) Eosinophils Absolute 0.0 Basophils Absolute 0.0 NT PRO BNP - Abnormal NT PRO BNP 3,120 (*) BETA HYDROXYBUTYRATE - Abnormal BETA HYDROXYBUTYRATE 3.15 (*) PROTHROMBIN TIME - Abnormal PROTHROMBIN TIME 17.5 (*) INR 1.7 (*) APTT - Abnormal APTT 32.2 (*) Narrative: NOTE: The therapeutic time for Heparin anticoagulation, based on Xa activity inhibition, is an APTT of 46-80 seconds. POCT GLUCOSE METER UNSOLICITED RESULTS - Abnormal Glucose 265 (*) Narrative: Performed by: [facility], [address] [place] [address] CLIA ID: [id number] POCT VENOUS BLOOD GAS UNSOLICITED RESULTS - Abnormal pH, Venous 7.434 (*) pCO2, Venous 32.7 (*) pO2, Venous 40.4 HCO3, Venous 21.9 (*) Base Excess, Venous -1.8 SO2, Venous 77.8 FIO2 2 Narrative: Performed by: [facility], [address] [place] [address] CLIA ID: [id number] SARS-COV-2, FLU A/B, AND RSV COMBO - Normal SARS-CoV-2 Not Detected Respiratory Syncytial Virus Not Detected Influenza A Not Detected Influenza B Not Detected Narrative: Methodology: real-time, RT-PCR The SARS-CoV-2, Flu A/B, and RSV Combo assay is intended for in vitro diagnostic use under the FDA Emergency Use Authorization (EUA). This test has not been FDA cleared or approved. In compliance with this authorization, please visit www.fda.gov/media/696632/download or www.fda.gov/media/614380/download to access the applicable information sheets. TROPONIN I - Normal TROPONIN I 0.017 Narrative: Patients with high levels of Biotin oral intake (ie >5 mg/day) may have falsely decreased Troponin levels. POCT GLUCOSE METER - Normal Glucose Blood, POC 265 BLOOD CULTURE BLOOD CULTURE BLOOD CULTURE BLOOD CULTURE BLOOD TYPE AND SCREEN GEL ABO Grouping O Antibody Screen NEG Rh Type POS CONFIRMATORY ABO/RH ABO Grouping O Rh Type POS COMPLETE URINALYSIS WITH REFLEX TO CULTURE Narrative: The following orders were created for panel order Urinalysis complete with reflex to Culture. Procedure Abnormality Status --------- ------ Complete Urinalysis[[id number]] Please view results for these tests on the individual orders. COMPLETE URINALYSIS BLOOD GAS, VENOUS LACTIC ACID WITH REFLEX LACTIC ACID WITH REFLEX CBC WITH AUTO DIFFERENTIAL COMPREHENSIVE METABOLIC PANEL PROCALCITONIN TEST VANCOMYCIN, RANDOM All other labs were within normal range or not returned as of this dictation. EMERGENCY DEPARTMENT COURSE and DIFFERENTIAL DIAGNOSIS/MDM: Vitals: Vitals: 04/08/23 2335 04/08/23 2340 04/08/23 2345 04/09/23 0035 BP: 80/51 88/59 (!) 92/48 102/65 Pulse: 89 88 86 Resp: 18 17 (!) 11 Temp: TempSrc: SpO2: 100% 100% 99% Weight: Height: Medications vancomycin (Vancocin) 1750 mg in NS 500 mL IVPB (compounded premix) (1,750 mg IntraVENous New Bag 04/08/23 6569) sodium chloride 0.9% (NS) flush 10 mL (10 mL IntraVENous Not Given 04/08/23 8325) sodium chloride 0.9% (NS) flush 10 mL (has no administration in time range) sodium chloride 0.9 % infusion (has no administration in time range) acetaminophen (Tylenol) tablet 650 mg (has no administration in time range) Or acetaminophen (Tylenol) suppository 650 mg (has no administration in time range) ondansetron ODT (Zofran-ODT) disintegrating tablet 4 mg (has no administration in time range) Or ondansetron (Zofran) injection 4 mg (has no administration in time range) polyethylene glycol (PEG) 3350 (Miralax) packet 17 g (has no administration in time range) enoxaparin (Lovenox) syringe 40 mg (has no administration in time range) sodium chloride 0.9 % infusion (75 mL/hr IntraVENous New Bag 04/09/23 0018) piperacillin-tazobactam (Zosyn) 3,375 mg in sodium chloride 0.9 % 50 mL IVPB Mini-Bag Plus (has no administration in time range) vancomycin IVPB 1250 mg in 250 mL NS (premix) (has no administration in time range) sodium chloride 0.9 % bolus 2,000 mL (0 mL IntraVENous Stopped 04/08/23 2332) piperacillin-tazobactam (Zosyn) 3,375 mg in sodium chloride 0.9 % 50 mL IVPB Mini-Bag Plus (0 mg IntraVENous Stopped 04/08/23 2305) iopamidol (Isovue-370) 76 % injection 75 mL (75 mL IntraVENous Given 04/08/232319) MDM elements: The patient presented with chief complaint of hypertension and hyperglycemia. Patient arrives via EMS from nursing facility where she was noted to be hypotensive approximately 80s over 60s. Patient is denying any further complaints today. Reports that she feels physically well. On my exam she is alert, oriented, and in no acute distress. Her vital signs are unremarkable for hypotension of 69/46. Borderline tachycardic. Saturating appropriately on room air. Moving all extremities intentionally. Cardiac auscultation with regular rate and rhythm. Abdomen soft, nontender, nondistended, no peritoneal signs.. The differential diagnosis associated with this patient's presentation includes consider hypoglycemia, acute infectious process, PE, ACS, further acute metabolic process.. Our workup consisted of ordering/reviewing: Obtained CBC which demonstrates a leukocytosis with a white blood cell count of 19.6. Hemoglobin appears stable. Lactic elevated at 2.1. CMP demonstrates transaminitis and a creatinine of 1.1. Unable to compare to baseline as previous labs are not accessible. BHB mildly elevated at 3.1. VBG demonstrates no acidosis. Troponin within normal limits. Viral testing negative. CTA chest obtained given concern for pulmonary embolism secondary to patient's recent diagnosis of DVT. Study is unremarkable for pulmonary artery embolus, demonstrates pulmonary vascular congestion with small left pleural effusion. CT abdomen pelvis obtained which demonstrates diffuse edema in the soft tissue with no further evidence of acute intra-abdominal process. EKG obtained which demonstrates sinus tachycardia, no further evidence of acute ST segment elevation or depression. No noted acute ischemic changes. Patient provided with fluid bolus after which her pressures improved to 100s over 60s. No further complaints per patient. Given stabilization of blood pressure and lack of further symptom development, believe patient is appropriate and stable for the medical floor. Will be admitted for further evaluation of likely acute infectious process. I also reviewed external records from Outpatient labs and studies limited availability, able to view CBC and previous UA. As well as nursing facility documentation EMS run sheet concern for hypotension. Consideration for escalation of care with: ICU care, however, patient appears to be responding well to fluid, vital signs remain stable. The patient will be Admitted. Patient is in agreement with this plan. PROCEDURES: Unless otherwise noted below, none Procedures CRITICAL CARE TIME Total Critical Care time was 30 minutes, excluding separately reportable procedures. There was a high probability of clinically significant/life threatening deterioration in the patient's condition which required my urgent intervention. FINAL IMPRESSION 1. Sepsis (HCC) DISPOSITION Admit 04/08/2023 11:32:46 PM PATIENT REFERRED TO: No follow-up provider specified. DISCHARGE MEDICATIONS: New Prescriptions No medications on file (Comment: Please note this report has been produced using speech recognition software and may contain errors related to that system including errors in grammar, punctuation, and spelling, as well as words and phrases that may be inappropriate. If there are any questions or concerns please feel free to contact the dictating provider for clarification.) Elif Guerrero PA-C (electronically signed) Emergency Medicine Provider Elif Guerrero PA-C 04/09/2341 [facility] [employer] Phone: 02-23-2021 Hospital Discharge instructions Pradip Mcdermott PA-C - 02/23/2021 Follow-up with your doctor if symptoms persist. documented in this encounter [facility] Work Phone: 06-26-2020 Note Patient Outreach ([facility]) CHRISTA STOUT ([id number]) 1945 F Date Time Provider Department 06/26/20 STACY REYES During your visit today, we recorded the following information about you: Allergies As of Date: 06/26/2020 Noted Allergy Reaction ASPIRIN 09/27/2014 14 - Other: See Comments 7 - Swelling Comments: Lips swell Other reaction(s): Other (See Comments) Lips swell IBUPROFEN 09/27/2014 7 - Swelling Date Reviewed: 01/31/2020 Reviewed by: Meagan Plata Ma - Fully Assessed Order(s):SARS-COVID VACCINE 1ST DOSE APPT [[id number]] Order #: [id number] FUTURE Prescriptions as of 06/26/2020 Sig: ZOLPIDEM 5 MG TABLET Take 5 mg by mouth at bedtime* LEVOTHYROXINE 25 MCG TABLET Take 25 mcg by mouth daily be* OMEPRAZOLE 40 MG CAPSULE,SERGIO* Take 40 mg by mouth once jonelle* MULTIVITAMIN ORAL Take by mouth. EXEMESTANE 25 MG TABLET Take 1 tablet by mouth once d* FAMOTIDINE 20 MG TABLET Take 10 mg by mouth twice sara* ACIDOPHILUS ORAL Take by mouth once daily. CRANBERRY 400 MG CAPSULE Take 400 mg by mouth once sara* MENTHOL 4 % TOPICAL GEL Apply 4 % to affected area th* DOCUSATE SODIUM 100 MG CAPSULE Take 100 mg by mouth once sara* MELATONIN 5 MG TABLET Take 5 mg by mouth daily at b* PHENAZOPYRIDINE 200 MG TABLET Take 200 mg by mouth three ti* BISACODYL 5 MG TABLET Take 1 tablet by mouth as nee* CIPROFLOXACIN 250 MG TABLET Take 250 mg by mouth twice da* OXYCODONE-ACETAMINOPHEN 5 MG-* FERROUS SULFATE 325 MG (65 MG* Take 1 tablet by mouth daily * Patient not taking: Reported on 02/08/2019 ONDANSETRON 8 MG DISINTEGRATI* Take 1 tablet twice a day for* PROCHLORPERAZINE MALEATE 10 M* Take 1 tablet by mouth every * LORATADINE 10 MG TABLET Take daily for 5 days startin* HYDROCODONE 5 MG-ACETAMINOPHE* Take 1-2 tablets by mouth anthony* Patient not taking: Reported on 09/28/2017 ACARBOSE 25 MG TABLET Take 25 mg by mouth twice sara* ACETAMINOPHEN 325 MG CAPSULE Take 2 tablets by mouth as ne* BISACODYL 10 MG RECTAL SUPPOS* 10 mg by RECTAL route once da* CALCIUM CARBONATE 600 MG (1,5* Take 1 tablet by mouth twice * CHOLECALCIFEROL (VITAMIN D3) * Take 2,000 Units by mouth onc* DILTIAZEM 120 MG TABLET Take 120 mg by mouth once sara* INSULIN GLARGINE (U-100) 100 * Inject 10 Units subcutaneousl* LISINOPRIL 10 MG TABLET Take 10 mg by mouth once jonelle* MAGNESIUM HYDROXIDE 400 MG/5 * Take 30 mL by mouth once jonelle* OXYBUTYNIN CHLORIDE ER 10 MG * Take 10 mg by mouth once jonelle* DENOSUMAB 60 MG/ML SUBCUTANEO* Inject 60 mg subcutaneously o* FLUOXETINE 20 MG CAPSULE Take 20 mg by mouth once jonelle* CHOLESTYRAMINE (WITH SUGAR) 4* Take 1 Packet by mouth once d* Problem List As Of Date 06/26/2020 Noted Resolved Recurrent malignant neoplasm of left breast (HC*04/28/2016 Recurrent breast cancer (HCC) [C50.919] 05/28/2016 High blood pressure [I10] 06/05/2016 Diabetes (HCC) [E11.9] 06/05/2016 Hyperlipidemia [E78.5] Depression [F32.9] Overactive bladder [N32.81] BERTRAND (obstructive sleep apnea) [G47.33] Chemotherapy-induced neutropenia (HCC) [D70.1, *07/08/2016 Subcapital fracture of right hip (HCC) [S72.011*09/07/2016 Recurrent malignant neoplasm of breast (HCC) [C*03/17/2017 Letter Text Encounter Status:Closed by EPIC, PRODUSER on 07/01/20 [facility] documented [facility] this encounter [facility] Work Phone: Evaluation note* Diagnosis Sepsis (HCC)- Primary Sepsis (HCC) documented [facility] encounter [facility] Summary Purpose Family History No Family History Records FoundNo Family History Records FoundNo Family History Records FoundNo Family History Records FoundNo Family History Records FoundNo Family History Records FoundNo Family History Records Found Advance Directives No Advanced Directives Records FoundDocuments on File Type Date Recorded Patient Safety And Occupational Health Manager Expl anation ACP-Advance Directive ACP-Power of Photographic Process Attendant Latest Code Status on File Code Status Date Activated Date Inactivated Comments Full Code 06/07/2018 9:41 AM 06/09/2018 10:44 PM Latest Code Status on File Code Status Date Activated Date Inactivated Comments Full Code 04/08/2023 11:53 PM 04/13/2023 5:09 PM Additional Source Comments INFORMATION SOURCE (unrecogn ized section and content) DATE CREATED AUTHOR AUTHOR'S ORGANIZ ATION 07/31/2020 [facility] DATE CREATED AUTHOR AUTHOR'S ORGANIZ ATION 02/23/2021 [facility] DATE CREATED AUTHOR AUTHOR'S ORGANIZ ATION 02/26/2021 [facility] DATE CREATED AUTHOR AUTHOR'S ORGANIZ ATION 05/28/2021 [facility] DATE CREATED AUTHOR AUTHOR'S ORGANIZ ATION 10/25/2021 [facility] DATE CREATED AUTHOR AUTHOR'S ORGANIZ ATION 05/02/2023 [facility] Reason for Visit (unrecogniz ed section and content) Reason Comments Hypotension Pt brought in by EMS due to patient having low blood pressure. Pt is from [place] [facility]. EMS sates that patient has BP of 86/60. 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 Specialty Diagnoses / Procedures Referred By Contquinn t Referred To Contact Diagnoses Sepsis (HCC) Procedures . Alyx Sheets, DO [address] [place] [address] [facility] [address] [place] [address] Referral ID Status Reason Start Date Expiration Date Visits Re quested Visits Authorized [id number] 1 1 Ordered Prescriptions (unrec ognized section and content) Scheduled Active and Recently Administ ered Medications (unrecognized section and content) Scheduled Medication Order 04/11/2023 04/12/2023 04/13/2023 apixaban (Eliquis) tablet 5 mg 5 mg, Oral, 2 times daily, First dose on Wed04/09/23 at 1315, Anticoagulant 0835 (Given - Provider: Miriam Wong RN)2108 (Given - Provider: Adri Lee RN) 0851 (Given - Provider: Megan Malone RN)2107 (Given - Provider: Blanca Morales, YANDY) 0934 (Given - Provider: Tiffanie Massey RN) ceFAZolin (Ancef) 2,000 mg in sodium chloride 0.9 % 100 mL IVPB 2,000 mg, IntraVENous, at 200 mL/hr, Administer over 30 Minutes, Every 8 hours, First dose on Wed04/11/23 at 0830, For 11 days, Mini-Bag Plus bag, Suspected Indication (Select all that apply): Bloodstream Infection 1010 (New Bag - Provider: Miriam Wong RN)1040 (Stopped - Provider: Miriam Wong RN)1725 (New Bag - Provider: Miriam Wong, YANDY)1755 (Stopped - Provider: Miriam Wong RN) 0000 (New Bag - Provider: Ardi Lee RN)0030 (Stopped - Provider: Adri Lee RN)0858 (New Bag - Provider: Megan Malone RN)0928 (Stopped - Provider: Megan Malone RN)1544 (New Bag - Provider: Megan Malone RN)1614 (Stopped - Provider: Megan Malone RN) 0041 (New Bag - Provider: Blanca Morales RN)0111 (Stopped - Provider: Blanca Morales, YANDY)0934 (New Bag - Provider: Tiffanie Massey RN)1004 (Stopped - Provider: Tiffanie Massey RN)1630 (Canceled Entry - Provider: Automatic Discharge Provider - Comment: Automatically canceled at discontinue of medication order) exemestane (Aromasin) chemo tablet 25 mg 25 mg, Oral, Daily, First dose on Wed04/09/23 at 1300, HAZARDOUS - Handle with care 0836 (Given - Provider: Miriam Wong RN) 0852 (Given - Provider: Megan Malone RN) 0934 (Given - Provider: Tiffanie Massey RN) FLUoxetine (PROzac) capsule 10 mg 10 mg, Oral, Daily, First dose on Wed04/09/23 at 1300 0836 (Given - Provider: Miriam Wong RN) 0852 (Given - Provider: Megan Malone RN) 0900 (Not Given - Provider: Tiffanie Massey RN - Reason: Medication not available) insulin glargine (Lantus) injection 16 Units 16 Units, SubCUTAneous, Nightly, First dose on Wed04/09/23 at 2100 2108 (Given - Provider: Adri Lee, YANDY) 2107 (Given - Provider: Blanca Morales RN) Insulin Lispro (Humalog) injection 0-12 Units(Linked Group 1) 0-12 Units, SubCUTAneous, 3 times daily with meals, First dose on Wed04/09/23 at 1300, Medium Dose Correction Algorithm Glucose: Dose: LESS than 139 No Insulin 140-199 2 Unit 200-249 4 Units 250-299 6 Units 300-349 8 Units 350-400 10 Units Above 400 12 Units 0800 (Not Given - Provider: Miriam Wong RN - Reason: Order parameters not met)1200 (Not Given - Provider: Miriam Wong RN - Reason: Order parameters not met)1700 (Not Given - Provider: Miriam Wong RN - Reason: Order parameters not met) 0800 (Not Given - Provider: Megan Malone RN - Reason: Order parameters not met)1313 (Given - Provider: Megan Malone RN)1700 (Not Given - Provider: Megan Malone RN - Reason: Order parameters not met) 0800 (Not Given - Provider: Tiffanie Massey RN - Reason: Order parameters not met)1200 (Not Given - Provider: Tiffanie Massey RN - Reason: Other - Comment: patient did not eat lunch)1700 (Canceled Entry - Provider: Automatic Discharge Provider - Comment: Automatically canceled at discontinue of medication order) Insulin Lispro (Humalog) injection 0-12 Units(Linked Group 1) 0-12 Units, SubCUTAneous, Nightly, First dose on Wed04/09/23 at 2100, If continuous tube feedings/TPN/NPO, give correction dose based on result, no reduction in dose. If eating or bolus tube feeding: Medium Dose Correction Algorithm Glucose: Dose: LESS than 139 No Insulin 140-199 2 Unit 200-249 4 Units 250-299 6 Units 300-349 8 Units 350-400 10 Units Above 400 12 Units 2108 (Given - Provider: Adri Lee RN) 2107 (Given - Provider: Blanca Morales RN - Comment: 173) levothyroxine (Synthroid, Levoxyl) tablet 25 mcg 25 mcg, Oral, Daily before breakfast, First dose on 04/10/23 at 0700, Tube feeding (TF) interaction, obtain physician order to manage, recommend holding TF for 30 minutes before and after dose. 0644 (Given - Provider: Adri Lee RN) 0612 (Given - Provider: Adri Lee RN) 0616 (Given - Provider: Blanca Morales RN) Melatonin disintegrating tablet 5 mg 5 mg, Oral, Nightly, First dose on Wed04/09/23 at 2100 2107 (Given - Provider: Adri Lee RN) 2106 (Given - Provider: Blanca Morales RN) pantoprazole (ProtoNix) EC tablet 40 mg 40 mg, Oral, Daily before breakfast, First dose on 04/10/23 at 0700, Substituted for omeprazole (Prilosec). Do not crush, chew, or split. 0644 (Given - Provider: Adri Lee RN) 0612 (Given - Provider: Adri Lee RN) 0616 (Given - Provider: Blanca Morales RN) piperacillin-tazobactam (Zosyn) 3,375 mg in sodium chloride 0.9 % 50 mL IVPB Mini-Bag Plus (CANCELED) 3,375 mg, IntraVENous, at 12.5 mL/hr, Administer over 4 Hours, Every 8 hours, First dose on Wed04/09/23 at 0630, Mini-Bag Plus bag, Suspected Indication (Select all that apply): Sepsis of Unknown Etiology 0349 (Stopped - Provider: Adri Lee RN)0644 (New Bag - Provider: Adri Lee RN)1009 (Stopped - Provider: Miriam Wong RN) potassium chloride CR (Klor-Con M20) ER tablet 20 mEq 20 mEq, Oral, 2 times daily, First dose on Wed04/11/23 at 1000, Best given with food and plenty of water to minimize gastric irritation. Do not crush or chew. 1009 (Given - Provider: Miriam Wong RN)2107 (Given - Provider: Adri Lee, YANDY) 0958 (Given - Provider: Megan Malone RN)2106 (Given - Provider: Blanca Morales RN) 0934 (Given - Provider: Tiffanie Massey RN) potassium chloride CR (Klor-Con M20) ER tablet 40 mEq (COMPLETED) 40 mEq, Oral, Once, On Wed04/12/23 at 0915, For 1 dose, Best given with food and plenty of water to minimize gastric irritation. Do not crush or chew. 0958 (Given - Provider: Megan Malone RN) sodium chloride 0.9% (NS) flush 10 mL 10 mL, IntraVENous, Every 12 hours scheduled (2 times per day), First dose on [place] 04/08/23 at 2355 0900 (Not Given - Provider: Miriam Wong RN - Reason: IV Fluids Infusing)2108 (Given - Provider: Adri Lee RN) 0900 (Not Given - Provider: Megan Malone RN - Reason: IV Fluids Infusing)2111 (Given - Provider: Blanca Morales RN) 0900 (Not Given - Provider: Tiffanie Massey RN - Reason: IV Fluids Infusing) trospium (Sanctura) tablet 20 mg 20 mg, Oral, Daily, First dose on Wed04/09/23 at 1300, Substituted for oxybutynin (DITROPAN); fesoterodine (TOVIAZ); darifenacin (ENABLEX); solifenacin (VESICARE); tolterodine IR (DETROL); tolterodine ER (DETROL LA). Give one hour before meals. 0835 (Given - Provider: Miriam Wong RN) 0851 (Given - Provider: Megan Malone RN) 0934 (Given - Provider: Tiffanie Massey RN) Continuous Medication Order 04/11/2023 04/12/2023 04/13/2023 sodium chloride 0.9 % infusion 100 mL/hr, IntraVENous, Continuous, Starting on Wed04/09/23 at 2100, After bolus is in 2106 (New Bag - Provider: Adri Lee RN) 2119 (New Bag - Provider: Blanca Morales RN) 617 (New Bag - Provider: Blanca Morales RN) PRN Medication Order 04/11/2023 04/12/2023 04/13/2023 acetaminophen (Tylenol) suppository 650 mg(Linked Group 2) 650 mg, Rectal, Every 6 hours PRN, mild pain (1-3), fever, For temp greater than 100.4 F (38 C), Starting on [place] 04/08/23 at 2352, Administer if oral route cannot be used. Maximum dose of acetaminophen is 4000 mg from all sources in 24 hours. acetaminophen (Tylenol) tablet 650 mg(Linked Group 2) 650 mg, Oral, Every 6 hours PRN, mild pain (1-3), fever, For temp greater than 100.4 F (38 C), Starting on [place] 04/08/23 at 2352, Maximum dose of acetaminophen is 4000 mg from all sources in 24 hours. bisacodyl (Dulcolax) suppository 10 mg 10 mg, Rectal, Daily PRN, constipation, Starting on Wed04/09/23 at 1252 carboxymethylcellulose PF (Refresh Plus) 0.5 % ophthalmic solution 1 drop 1 drop, Both Eyes, 3 times daily PRN, dry eyes, Starting on Wed04/09/23 at 1252 dextrose 5 % infusion 100 mL/hr, IntraVENous, PRN, Blood sugar less than 70mg/dL, Starting on Wed04/09/23 at 1253, Start infusion following administration of dextrose 50% or glucagon. dextrose 50 % solution 12.5 g 12.5 g, IntraVENous, PRN, low blood sugar, Blood glucose less than 70 mg/dL and patient NOT ALERT or NPO., Starting on Wed04/09/23 at 1253, If patient does not respond within 5 minutes, repeat dose x1. Start D5W at 100 mL/hour until ordering provider can be reached. Repeat blood glucose in 15 minutes. If blood glucose is less than 70 mg/dL, repeat treatment and recheck blood glucose in 15 minutes x2. If using Glucostabilizer, dose as instructed per system. glucagon (human recombinant) injection 1 mg 1 mg, IntraMUSCular, PRN, low blood sugar, Blood glucose less than 70 mg/dL and patient NOT ALERT or NPO and does not have IV access., Starting on Wed04/09/23 at 1253, After administration, attempt intravenous access and start D5W at 100 mL/hr. Repeat blood glucose in 15 minutes x2 and notify provider. glucose oral gel 15 g 15 g, Oral, As needed, low blood sugar, Starting on Wed04/09/23 at 1253, If blood glucose less than 50 mg/dL and patient ALERT and NOT NPO, give 2 tubes glucose gel. If blood glucose less than 70 mg/dL and patient ALERT and NOT NPO, give 1 tube glucose gel. Repeat blood glucose in 15 minutes. If blood glucose is less than 70 mg/dL, repeat treatment and recheck blood glucose in 15 minutes x2 and notify provider. ondansetron (Zofran) injection 4 mg(Linked Group 3) 4 mg, IntraVENous, Every 6 hours PRN, nausea, vomiting, Starting on Wed04/08/23 at 2352, 1st Line. Give IV if patient is unable to take orally. If inadequate response within 60 minutes, proceed to next-line agent or contact provider if no further options ordered. ondansetron ODT (Zofran-ODT) disintegrating tablet 4 mg(Linked Group 3) 4 mg, Oral, Every 8 hours PRN, nausea, vomiting, Starting on Wed04/08/23 at 2352, 1st Line. If inadequate response within 60 minutes, proceed to next-line agent or contact provider if no further options ordered. Patient should allow tablet to dissolve on tongue. Do not remove from blister pack until just before administering. polyethylene glycol (PEG) 3350 (Miralax) packet 17 g 17 g, Oral, Daily PRN, constipation, Starting on Wed04/08/23 at 2352, 1st line for treatment of constipation - give scheduled if no bowel movement in past 24 hours. sodium chloride 0.9 % infusion 5-250 mL/hr, IntraVENous, PRN, if patient receiving piggyback infusions and maintenance fluids are not ordered OR KVO fluids to protect IV site / prevent frequent line interruptions/ long duration, Starting on Wed04/08/23 at 2352, For piggyback infusion, administer at same rate as piggyback for a total of 25 mL. Enter 25 mL into dose field and piggyback rate into rate field of order. If piggyback is infusing at a rate less than 100 mL/hr, enter 25 mL into dose field and 100 mL/hr into rate field of order. For KVO fluids, enter rate of 20 mL/hr or less into rate field of order. sodium chloride 0.9% (NS) flush 10 mL 10 mL, IntraVENous, PRN, line care, Starting on Wed04/08/23 at 2352, After every IV line use traMADol (Ultram) tablet 50 mg 50 mg, Oral, Every 6 hours PRN, severe pain (7-10), Starting on Wed04/09/23 at 1253, Max of 300 mg daily for patients > 75 years of age. Linked Groups Order Group 1: Insulin Lispro (Humalog) injection 0-12 UnitsJump to med 0-12 Units, SubCUTAneous, 3 times daily with meals, First dose on Wed04/09/23 at 1300, Medium Dose Correction Algorithm Glucose: Dose: LESS than 139 No Insulin 140-199 2 Unit 200-249 4 Units 250-299 6 Units 300-349 8 Units 350-400 10 Units Above 400 12 Units And Insulin Lispro (Humalog) injection 0-12 UnitsJump to med 0-12 Units, SubCUTAneous, Nightly, First dose on Wed04/09/23 at 2100, If continuous tube feedings/TPN/NPO, give correction dose based on result, no reduction in dose. If eating or bolus tube feeding: Medium Dose Correction Algorithm Glucose: Dose: LESS than 139 No Insulin 140-199 2 Unit 200-249 4 Units 250-299 6 Units 300-349 8 Units 350-400 10 Units Above 400 12 Units Group 2: acetaminophen (Tylenol) tablet 650 mgJump to med 650 mg, Oral, Every 6 hours PRN, mild pain (1-3), fever, For temp greater than 100.4 F (38 C), Starting on Wed04/08/23 at 2352, Maximum dose of acetaminophen is 4000 mg from all sources in 24 hours. Or acetaminophen (Tylenol) suppository 650 mgJump to med 650 mg, Rectal, Every 6 hours PRN, mild pain (1-3), fever, For temp greater than 100.4 F (38 C), Starting on [place] 04/08/23 at 2352, Administer if oral route cannot be used. Maximum dose of acetaminophen is 4000 mg from all sources in 24 hours. Group 3: ondansetron ODT (Zofran-ODT) disintegrating tablet 4 mgJump to med 4 mg, Oral, Every 8 hours PRN, nausea, vomiting, Starting on [place] 04/08/23 at 2352, 1st Line. If inadequate response within 60 minutes, proceed to next-line agent or contact provider if no further options ordered. Patient should allow tablet to dissolve on tongue. Do not remove from blister pack until just before administering. Or ondansetron (Zofran) injection 4 mgJump to med 4 mg, IntraVENous, Every 6 hours PRN, nausea, vomiting, Starting on [place] 12/11/22 at 2352, 1st Line. Give IV if patient is unable to take orally. If inadequate response within 60 minutes, proceed to next-line agent or contact provider if no further options ordered. Care Teams (unrecognized sec tion and content) FOR RECORDS PERTAINING TO PATIENTS WHO ARE OR HAVE BEEN ENROLLED IN A CHEMICAL DEPENDENCY/SUBSTANCEABUSE PROGRAM, SOME INFORMATION MAY BE OMITTED. This clinical summary was aggregated from multiple sources. Caution should be exercised in using it in the provision of clinical care. This summary normalizes information from multiple sources, and as a consequence, information in this document may materially change the coding, format and clinical context of patient data. In addition, data may be omitted in some cases. CLINICAL DECISIONS SHOULD BE BASED ON THE PRIMARY CLINICAL RECORDS. [email or web address] provides no warranty or guarantee of the accuracy or completeness of information in this document.
[2023-05-21 09:25] LABS: Hemoglobin 9.4 g/dL (12.0-15.0); Mean Corp Hgb Conc 32.4 g/dL (32-36); Mean Corpuscular Hgb 29.1 pg (27.0-32.0); Mean Corpuscular Volume 89.8 fL (81-99); Mean Platelet Vol. 10.9 fl (6.2-12.0); Platelet Count 143 K/mm3 (150-450); Red Blood Count 3.23 M/mm3 (4.2-5.4); White Blood Count 6.9 K/mm3 (4.4-11.0)
[2023-05-21 09:31] LABS: Anion Gap 3 (5-15); BUN 17 mg/dL (7-18); BUN/Creat Ratio 19.6 RATIO (10-20); Calcium,Total 7.8 mg/dL (8.5-10.1); Chloride 114 mmol/L (98-107); Creatinine, Serum 0.87 mg/dL (0.55-1.02); EST Glomerular Filtration Rate 67 mL/min (>60); Est Glom Filt Rate - Afr Amer 81 mL/min (>60); Glucose 68 mg/dL (74-106); Potassium 3.1 mmol/L (3.5-5.1); Sodium Level 141 mmol/L (136-145)
== END ==
LOC: OLS.SANC 05:00
PROVIDERS: PCP Internal Medicine; Visit Provider Internal Medicine
DX: Z79.899 Other long term (current) drug therapy (principal)
CPT/HCPCS: 36415; 80048; 85027

== ENCOUNTER → 2023-06-07 | Outpatient (REF) | payer MEDICARE, MEDICAID, SELFPAY ==
[2023-06-07 11:09] LABS: Mucous, Urine 0 SEEN /hpf (<or=2+)
[2023-06-07 11:22] LABS: Color, Urine Yellow (Yellow); Glucose, Dipstick 50 mg/dl (Normal); Ketone-Dipstick Negative (Negative); Leukocyte Esterase-Dipstick 500 /ul (Negative); Nitrite-Dipstick Negative (Negative); Occult Blood-Urine 25 /ul (Negative); Protein-Dipstick 15 mg/dl (Negative); Urine Bilirubin Dipstick Negative (Negative); Urine Clarity Sl. Cloudy (Clear); Urine Urobilinogen Normal (Normal)
[2023-06-07 11:35] LABS: Calcium Oxalate Crystals Ur RARE /hpf (<or=2+); Red Blood Cells-Urine 0-5 SEEN /hpf (0-5); Squamous Epithelial Cells - UA 0-5 SEEN /hpf (5-10); White Blood Cells 25-50 SEEN /hpf (0-5); Yeast-Urine 2+ /hpf (None Seen)
[2023-06-07 11:36] LABS: Bacteria 1+ /hpf (None Seen); Transitional Epithelial - Ur 0-5 SEEN /hpf (0-5)
== END ==
LOC: OLS.SANC 05:00
PROVIDERS: PCP Internal Medicine; Visit Provider Internal Medicine
DX: R39.9 Unspecified symptoms and signs involving the genitourinary system (principal)
CPT/HCPCS: 81001; 87086; 87088

== ENCOUNTER → 2023-06-21 | Outpatient (REF) | payer MEDICARE, MEDICAID, SELFPAY ==
[2023-06-21 10:13] LABS: Hematocrit 31.2 % (37-47); Hemoglobin 10.1 g/dL (12.0-15.0); Mean Corp Hgb Conc 32.4 g/dL (32-36); Mean Corpuscular Hgb 28.5 pg (27.0-32.0); Mean Corpuscular Volume 88.1 fL (81-99); Mean Platelet Vol. 10.3 fl (6.2-12.0); Platelet Count 125 K/mm3 (150-450); RBC Distribution Width CV 18.5 % (11.6-14.6); RBC Distribution Width SD 57.9 fl (35.1-43.9); Red Blood Count 3.54 M/mm3 (4.2-5.4); White Blood Count 6.7 K/mm3 (4.4-11.0)
[2023-06-21 10:23] LABS: Anion Gap 2 (5-15); BUN 16 mg/dL (7-18); BUN/Creat Ratio 19.1 RATIO (10-20); Calcium,Total 7.8 mg/dL (8.5-10.1); Chloride 117 mmol/L (98-107); Creatinine, Serum 0.84 mg/dL (0.55-1.02); EST Glomerular Filtration Rate 70 mL/min (>60); Est Glom Filt Rate - Afr Amer 85 mL/min (>60); Glucose 73 mg/dL (74-106); Potassium 3.6 mmol/L (3.5-5.1); Sodium Level 144 mmol/L (136-145)
== END ==
LOC: OLS.SANC 04:00
PROVIDERS: PCP Internal Medicine; Referring Provider Internal Medicine; Visit Provider Internal Medicine
DX: E11.9 Type 2 diabetes mellitus without complications (principal); I10 Essential (primary) hypertension; E78.5 Hyperlipidemia, unspecified
CPT/HCPCS: 36415; 80048; 85027